=== PATIENT | female | born 1960 | race Caucasian/White ===

== ENCOUNTER 2022-12-17 07:04 | Observation (INO) | payer OTHER, SELFPAY ==
[2022-12-17] VITALS (8 sets, daily range): BP systolic 124–149; BP diastolic 78–84; PULSE 50–66; RESP 16–18; TEMP 36.4–37.1; O2SAT 93–99; BMI 34.5; BMI 40.6
--- NOTE | 2022-12-17 | CONS_ITS ---
CONSULTATION DATE: ??12/17/2022 REASON FOR CONSULTATION:? Abdominal pain, cholelithiasis. HISTORY OF PRESENT ILLNESS:? Patient is a 62-year-old female with history of obesity, who presented to the emergency room with upper abdominal pain and nausea.? She reports that the pain woke her up at 3:00 a.m.? She did have a fatty dinner.? Reports that the pain felt like a band-like pain around the upper abdomen, squeezing, severe.? There was associated nausea and, at time, emesis.? Because of the persistence of the pain, she presented to the emergency room for evaluation.? She reports that she has had multiple previous attacks, beginning in July, at which time she was evaluated in the emergency room, at that time, had had chest CT.? She has had severe other attacks, usually only lasting several hours; although she does report now that they seem to be getting more frequent, but they usually resolve spontaneously.? She denies any history of jaundice or pancreatitis, has had no previous abdominal surgery.? In the emergency room, she had a workup which revealed mild elevation of her transaminases, as well as some mild elevation of the alkaline phosphotase, normal bilirubin and lipase, normal white blood cell count. ?She had an ultrasound that revealed cholelithiasis, as well as mild dilatation of the common bile duct.? No thickening of the gallbladder wall.? No pericholecystic fluid.? Of note is that in July, when she had her first attack, her transaminases were more elevated and her alkaline phosphotase was similar at 130.? Patient subsequently was admitted for pain control and further workup, underwent an abdominal CT scan with contrast. It revealed a dilated common duct of approximately 1 cm.? No inflammatory changes or free fluid or thickening of the gallbladder wall.? No radiopaque stones in the gallbladder or common duct.? An MRCP has subsequently been ordered but has not been completed yet.? Patient?s pain has improved.? She was given some narcotics and reports that the pain has completely resolved.? She has had no further nausea or vomiting.? She does have some soreness still in the upper abdomen.? Patient denies aspirin, nonsteroidal anti-inflammatory drug use. Denies significant alcohol use or tobacco use.? There is no family history of irritable bowel disease.? ALLERGIES:? The patient has no known drug allergies. MEDICATIONS:? Patient is on no prescription medications, denies any [id number] medications.? PAST SURGICAL HISTORY:? Significant for a D&C hysteroscopy in 2009. SOCIAL HISTORY:? Patient is .? Denies tobacco use, alcohol use or illicit drug use. FAMILY HISTORY:? Noncontributory. REVIEW OF SYSTEMS:? Ten system review of systems is negative for recent weight loss or weight gain.? She denies increased fatigue or light-headedness.? Has had no earache or tinnitus.? No sinus congestion.? No sore throat or hoarseness.? No chest pain, palpitations or syncope.? No chronic cough, shortness of breath or hemoptysis.? She has had the abdominal pain, nausea and vomiting which is now improved.? No melena, hematochezia or bright red blood per rectum.? No dysuria, frequency, urgency or hematuria.? No headaches, seizures or tremors.? No easy bruising or bleeding.? No heat or cold intolerance.? No polydipsia, polyphagia or polyuria. PHYSICAL EXAM:? VITAL SIGNS:? Patient is afebrile.? Blood pressure is 130/78.? Heart rate is 66 and regular.? Respiratory rate is 18.? O2 saturation is 97% on room air.? GENERAL:? In general, she is an obese female in no acute distress. HEENT:? Normocephalic, atraumatic.? Sclerae anicteric.? Conjunctiva are not injected.? Oral mucosa is moist without lesions. NECK:? Supple.? There is no adenopathy, thyromegaly or JVD. LUNGS:? Clear bilaterally.? CARDIAC EXAM:? Regular rhythm and rate without appreciable murmurs, rubs or gallops. ABDOMEN:? Obese.? There are normal active bowel sounds.? Soft, non-distended.? There is mild epigastric and right lower quadrant tenderness to deep palpation with no peritoneal signs, no masses, no hepatosplenomegaly, negative Browne?s sign.? No CVA tenderness.? SKIN:? Warm and dry without lesions, rashes or ulcers. NEURO EXAM:? Non-focal.? Non-lateralizing.? Patient is awake, alert, oriented with appropriate affect. ASSESSMENT:? A 62-year-old obese female with episodes of biliary colic in the past, not with a more severe episode and dilatation of the common bile duct.? She does have mild elevation of the transaminases and alkaline phosphotase, which is similar to previous episode in July.? Overall, she had no evidence of acute cholecystitis.? I am concerned about possible common duct stone or passage of a common duct stone.? PLAN:? We will monitor her symptoms, serial LFTs and await the MRCP results.?? If there is a concern for common duct stone, she will likely require ERCP with sphincterotomy prior to any cholecystectomy. Thank you for allowing me to participate in her care.?? I will be happy to follow with you during her hospital course. CC:? Patient?s family physician TEREZA
--- NOTE | 2022-12-17 07:13 | ED.ABDPAIN1 ---
HPI - Abdominal Pain General Chief Complaint: Abdominal Pain Stated Complaint: ABDOMINAL & BACK PAIN Time Seen by Provider: 12/17/22 07:13 Source: patient Mode of arrival: walk-in Limitations: no limitations History of Present Illness HPI narrative: Patient presents to emergency department complaining of epigastric pain. Patient complains of pain to bilateral ribs and a band with distribution over rib 7 and 8 from the right side to the left side as if she had a constriction band placed. She states this pain started at 3 in the morning. She has been nauseated and dry heaving all night. Last NPO was at 5 PM yesterday. She states she's had 3 episodes like this in the past in July, september for which she was seen and evaluated had a CTA of her chest done at that time cardiac enzymes and she was discharged home. Patient states she has not followed up with any doctor regarding previous elevated liver function tests. Patient States she had a heart catheterization 20 years ago. Pain is not related to exertion. There is nothing that makes it better or worse. She denies any palpitations, dizziness or lightheadedness. She denies any shortness of breath. She denies any upper respiratory infection symptoms, cough, or shortness of breath. She denies any diarrhea, constipation. She denies any hematuria, dysuria. She denies any trauma. She states that throughout the morning she took a dorsiflexed a diclofenac that was given to her in September when she was seen for the same exact type of pain. Related Data Home Medications Medication Instructions Recorded Confirmed No Known Home Medications 12/17/22 12/17/22 Allergies Allergy/AdvReac Type Severity Reaction Status Date / Time No Known Drug Allergies Allergy Verified 12/17/22 07:08 Review of Systems ROS Status of ROS 10 or more systems reviewed and unremarkable except as noted in history and below [facility] Social History Smoking status: Current every day smoker Exam Narrative Exam Narrative: Nurses notes and vital signs reviewed and patient is not hypoxic. General: Nontoxic, Appears in pain but is not in distress. Skin: Warm, dry, no pallor noted. No Rash Head: Normocephalic, atraumatic. Neck: Supple, non-tender. Eye: Pupils are equal, round and EOMI. No scleral icterus. Ears, Nose, Mouth, and Throat: TM clear, no posterior oropharynx erythema or nasal mucosal hypertrophy, uvula is mid-line Oral mucosa is moist Cardiovascular: Regular Rate and Rhythm without murmur, gallop or rub. Respiratory: No accessory muscle use or respiratory distress. Lungs are clear to auscultation, no wheezing, rales or rhonchi Chest Wall: no tenderness Back: No midline thoracic or lumbar vertebral tenderness. No CVA tenderness Musculoskeletal: normal ROM, no calf or popliteal tenderness, no lower extremity edema/swelling GI: obese, Abdomen is soft, non-distended. Normal bowel sounds. Mild right upper quadrant tenderness to palpation. No rebound, guarding, or rigidity noted. Neurological: A&O x4. No cranial nerve dysfunction observed. No truncal ataxia. Moves all extremities. Sensation intact. Psychiatric: Cooperative and interactive. Normal mood and affect. Constitutional Vital Signs, click to edit/add: Last Vital Signs Temp 97.6 F 12/17/22 07:08 Pulse 50 L 12/17/22 09:02 Resp 18 12/17/22 09:02 BP 124/84 12/17/22 09:02 Pulse Ox 99 12/17/22 09:02 O2 Del Method Room Air 12/17/22 07:08 Course Vital Signs Vital signs: Vital Signs Temperature 97.6 F 12/17/22 07:08 Pulse Rate 63 12/17/22 07:08 Respiratory Rate 18 12/17/22 07:08 Blood Pressure 149/80 H 12/17/22 07:08 Pulse Oximetry 99 12/17/22 07:08 Oxygen Delivery Method Room Air 12/17/22 07:08 Temperature 97.6 F 12/17/22 07:08 Pulse Rate 50 L 12/17/22 09:02 Respiratory Rate 18 12/17/22 09:02 Blood Pressure 124/84 12/17/22 09:02 Pulse Oximetry 99 12/17/22 09:02 Oxygen Delivery Method Room Air 12/17/22 07:08 MDM - Abdominal Pain MDM Narrative Medical decision making narrative: EKG shows sinus at 65 bpm normal axis, no acute ischemic changes. IV established labs were ordered patient was given Toradol 30 mg IV, and right upper quadrant ultrasound showed cholelithiasis. Patient was then given morphine and Zofran IV. Pain is better controlled. Patient vomited one time in the emergency department. Patient's pain improved after morphine and toradol. Patient was seen July 11 of this year with the same complaint and symptoms and her liver function tests at that time similar to what they are today. Patient has not followed up with any one regarding this. Ultrasound result was discussed with Dr. Beltran. Dr. lovett advised the patient can be admitted to the hospitalist for observation to monitor and he will evaluate her. The patient was discussed with Dr. verito ledesma who has accepted the patient. Differential Diagnosis Differential diagnosis: Likely abdominal pain and pancreatitis Medical Records Attestation: I reviewed the patient's medical records. Lab Data Attestation: I reviewed the patient's lab results. Labs: Lab Results 12/17/22 Range/Units 07:34 WBC 6.0 (4.0-11.0) 10^3/uL RBC 4.43 (4.20-5.40) 10^6/uL Hgb 13.4 (12.0-16.0) g/dL Hct 41.6 (36.0-48.0) % MCV 93.9 (81.0-99.0) fL MCH 30.2 (26.7-34.0) pg MCHC 32.2 (29.9-35.2) g/dL RDW 13.6 (11.0-15.0) % Plt Count 211 (150-450) 10^3/uL MPV 10.4 (9.5-13.5) fL Neut % (Auto) 71.9 (43.0-75.0) % Lymph % (Auto) 21.6 (20.5-60.0) % [place] % (Auto) 4.5 (1.7-12.0) % Eos % (Auto) 1.3 (0.9-7.0) % Baso % (Auto) 0.5 (0.2-2.0) % Neut # (Auto) 4.3 (1.4-6.5) 10^3/uL Lymph # (Auto) 1.3 (1.2-3.8) 10^3/uL [place] # (Auto) 0.3 (0.3-0.8) 10^3/uL Eos # (Auto) 0.1 (0.0-0.7) 10^3/uL Baso # (Auto) 0.0 (0.0-0.1) 10^3/uL Abs Immat Gran (auto) 0.01 (0.00-0.03) 10^3/uL Imm/Tot Granulo (auto) 0.2 (0.0-0.5) % Sodium 139 (136-145) mmol/L Potassium 4.1 (3.5-5.1) mmol/L Chloride 105 (98-107) mmol/L Carbon Dioxide 24.5 (21.0-32.0) mmol/L Anion Gap 13.6 BUN 18.0 (7.0-18.0) mg/dL Creatinine 0.72 (0.55-1.02) mg/dL Est GFR ( Amer) >60 (>=60) Est GFR (Non-Af Amer) >60 (>=60) BUN/Creatinine Ratio 25.0 Glucose 139 H (74-106) mg/dL Lactate 2.0 (0.4-2.0) mmol/L Calcium 9.0 (8.5-10.1) mg/dL Total Bilirubin 0.2 (0.2-1.0) mg/dL AST 81 H (15-37) U/L ALT 164 H (14-59) U/L Alkaline Phosphatase 127 H (46-116) U/L Troponin I High Sens 5.1 (4.0-51.3) pg/mL Total Protein 8.1 (6.4-8.2) g/dL Albumin 3.5 (3.4-5.0) g/dL Globulin 4.6 g/dL Albumin/Globulin Ratio 0.8 Lipase 60.0 L (73.0-393.0) U/L ECG Data Attestation: I personally reviewed and interpreted this ECG as follows: Discharge Plan Discharge Chief Complaint: Abdominal Pain Clinical Impression: Elevated liver enzymes, Abdominal pain, acute, right upper quadrant Patient Disposition: Admitted as Observation Time of Disposition Decision: 08:52 Condition: Good
--- NOTE | 2022-12-17 07:15 | ECG_ITS ---
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
--- NOTE | 2022-12-17 07:22 | US_ITS ---
The [address] [address] Patient Name: NATE PRADO MRN: [id number] date: 1960 Sex: F Assigned Patient Location: ER Current Patient Location: ER Accession/Order Number: [id number] Exam Date: 12/17/2022 07:40 Report Date: 12/17/2022 08:19 At the request of: ALTHEA BAH Procedure: US right upper quadrant EXAMINATION: US right upper quadrant HISTORY: ruq pain , acute; nausea COMPARISON: No relevant comparison available. TECHNIQUE: Transabdominal evaluation of the right upper quadrant. FINDINGS: LIVER: Normal size and echotexture. Color Doppler demonstrates patent hepatic veins. PORTAL VEIN: Duplex Doppler demonstrates normal hepatopetal flow pattern with flow velocity averaging 35 cm/s. GALLBLADDER: Contains numerous stones. Wall thickness is within normal limits, 2 mm. No surrounding free fluid. Positive sonographic Browne's sign. BILIARY: Abnormally dilated common bile duct, 9 mm; no visible stone or mass. PANCREASE: No visible mass, abnormal atrophy, or duct dilation. KIDNEY: No hydronephrosis. No visible mass or stones. Size: 11.9 x 5.4 x 5.5 cm US/US right upper quadrant IMPRESSION: 1. Cholelithiasis, abnormally dilated common bile duct, and positive sonographic Browne's sign suggesting acute cholecystitis. No abnormal gallbladder wall thickening or free fluid. Electronically authenticated by: WALTER MARTIN Date: 12/17/2022 08:19
[2022-12-17] MEDS: 0.9 % SODIUM CHLORIDE 1,000 ML 999 ML IV (07:39)
[2022-12-17] MEDS: ONDANSETRON PF 4 MG/2 ML VIAL IV ×3 (07:39→22:22)
[2022-12-17] MEDS: KETOROLAC TROMETHAMINE 30 MG/ML VIAL IVP (07:41)
[2022-12-17 07:43] LABS: Basophils Percent Auto 0.5 % (0.2-2.0); Eosinophils Absolute Auto 0.1 10^3/uL (0.0-0.7); Eosinophils Percent Auto 1.3 % (0.9-7.0); Hematocrit 41.6 % (36.0-48.0); Hemoglobin 13.4 g/dL (12.0-16.0); Immature Granulocytes Abs Auto 0.01 10^3/uL (0.00-0.03); Immature Granulocytes Pct Auto 0.2 % (0.0-0.5); Lymphocytes Absolute Auto 1.3 10^3/uL (1.2-3.8); Lymphocytes Percent Auto 21.6 % (20.5-60.0); Mean Corpuscular HGB Conc 32.2 g/dL (29.9-35.2); Mean Corpuscular Hemoglobin 30.2 pg (26.7-34.0); Mean Corpuscular Volume 93.9 fL (81.0-99.0); Mean Platelet Volume 10.4 fL (9.5-13.5); Monocytes Absolute Auto 0.3 10^3/uL (0.3-0.8); Monocytes Percent Auto 4.5 % (1.7-12.0); Neutrophils Absolute Auto 4.3 10^3/uL (1.4-6.5); Neutrophils Percent Auto 71.9 % (43.0-75.0); Platelet Count 211 10^3/uL (150-450); Red Blood Count 4.43 10^6/uL (4.20-5.40); Red Cell Distribution Width 13.6 % (11.0-15.0)
[2022-12-17] MEDS: MORPHINE SULFATE 2 MG/ML SYRINGE 4 MG IV (08:04)
--- NOTE | 2022-12-17 08:07 | XR_ITS ---
The [address] [address] Patient Name: NATE PRADO MRN: [id number] date: 1960 Sex: F Assigned Patient Location: ER Current Patient Location: ER Accession/Order Number: [id number] Exam Date: 12/17/2022 08:00 Report Date: 12/17/2022 08:20 At the request of: ALTHEA BAH Procedure: XR chest 1V EXAMINATION: XR chest 1V HISTORY: cp ; acute back pain radiating to chest COMPARISON: No relevant comparison available. FINDINGS: LUNGS: No significant pulmonary parenchymal abnormalities. VASCULATURE: No increased pulmonary vasculature. PLEURA: No pneumothorax, effusion, or pleural thickening. CARDIAC: No cardiomegaly or cardiac silhouette abnormality. MEDIASTINUM: No visible mass or adenopathy. BONES: No fracture or visible bone lesion. OTHER: Negative. XR/XR chest 1V IMPRESSION: 1. No acute cardiopulmonary process. Electronically authenticated by: WALTER MARTIN Date: 12/17/2022 08:20
[2022-12-17 08:09] LABS: Alanine Aminotransferase 164 U/L (14-59); Albumin Globulin Ratio 0.8; Albumin Level 3.5 g/dL (3.4-5.0); Alkaline Phosphatase 127 U/L (46-116); Anion Gap 13.6; Aspartate Amino Transferase 81 U/L (15-37); Bilirubin Total 0.2 mg/dL (0.2-1.0); Carbon Dioxide 24.5 mmol/L (21.0-32.0); Chloride 105 mmol/L (98-107); Estimated GFR (African America >60 (>=60); Estimated GFR (Non-African Ame >60 (>=60); Globulin 4.6 g/dL; Glucose 139 mg/dL (74-106); Potassium 4.1 mmol/L (3.5-5.1); Sodium 139 mmol/L (136-145); Total Protein 8.1 g/dL (6.4-8.2); Troponin I High Sensitivity 5.1 pg/mL (4.0-51.3)
--- NOTE | 2022-12-17 11:02 | CT_ITS ---
[address] [address] Patient Name: NATE PRADO MRN: [id number] date: 1960 Sex: F Assigned Patient Location: Current Patient Location: Accession/Order Number: [id number] Exam Date: 12/17/2022 10:55 Report Date: 12/17/2022 11:29 At the request of: LORETTA ACE Procedure: CT abdomen w con EXAMINATION: CT abdomen w con HISTORY: upper abd pain radiating to back; elevated liver enzymes; gallstones and dilated common bile duct on today's ultrasound study COMPARISON: Ultrasound right upper quadrant 12/17/2022, CTA chest 07/12/2022 TECHNIQUE: CT images were created with IV contrast. Axial, Coronal, and Sagittal images. Dose reduction techniques were achieved by using automated exposure control and/or adjustment of mA and/or kV according to patient size and/or use of iterative reconstruction technique FINDINGS: LUNG BASES: No visible pulmonary or pleural disease. LIVER: No enlargement, atrophy, abnormal density, or significant focal lesion. BILIARY: Dilated common bile duct, 10 mm; no visible stone or mass. No calcified stones within the gallbladder, appreciable wall thickening, or adjacent free fluid. PANCREAS: No lesion, fluid collection, ductal dilatation, or atrophy. SPLEEN: No enlargement or focal lesion. ADRENALS: No mass or enlargement. KIDNEYS: No mass, obstruction, or calcification. BOWEL/MESENTERY: No visible mass, obstruction, or bowel wall thickening. AORTA/VASCULAR: No aneurysm or dissection. RETROPERITONEUM: No mass or adenopathy. ABDOMINAL WALL: No mass or hernia. BONES: No bony lesion or fracture. OTHER: Negative. CT/CT abdomen w con IMPRESSION: 1. Today's ultrasound study showed multiple stones within the gallbladder, which are not visible on the CT study indicating that these are noncalcified stones. No appreciable wall thickening or inflammatory changes of the gallbladder. 2. Abnormally dilated common bile duct without visible stone or mass. There could be a noncalcified stone within the distal duct. 3. Normal appearance of the pancreas. Electronically authenticated by: WALTER MARTIN Date: 12/17/2022 11:29
--- NOTE | 2022-12-17 11:32 | CM.NOTE ---
Rounds made with Dr. Montgomery, awaiting Dr. Beltran to evaluate pt to establish plan of care.
[2022-12-17] MEDS: LACTATED RINGER'S SOLUTION 1,000 ML 125 ML IV ×2 (11:35→19:25)
--- NOTE | 2022-12-17 11:48 | P.HP_ITS ---
H&P: HPI History of Present Illness Chief complaint: Abdominal Pain Narrative: 62 y old with no PMHX woke up with severe, intractable RUQ pain and back pain, that was persistent, associated with nausea and would not go away. She came to ED for evaluation and was found to have transaminitis, cholelithiasis and CBD dilatation. Patient reports she would experience RUQ pain intermittent every week or so, it lasts for a few hours and goes away. Pain she felt last night was so severe and persistent that she had to come to ED for evaluation. She has known since September of this year that she has symptomatic cholelithiasis and she needs cholecystectomy but she has not followed up with Surgery as outpatient. She denies any specific food triggers and reports onset of pain is sporadic and can happen anytime. She is comfortable now and reports minimal pain in RUQ Review of Systems ROS Status of ROS 10 or more systems reviewed and unremarkable except as noted in history and below [facility] Medical History (Updated 12/17/22 @ 11:55 by Shaikh Valentina MD) Family History (Updated 12/17/22 @ 10:17 by Lakeisha Garza LPN) Father Family history of hypertension Other Family history of COPD (chronic obstructive pulmonary disease) Social History (Updated 12/17/22 @ 10:19 by Lakeisha Garza LPN) Within the past year, how often did you have a drink containing alcohol: 2-4 times a month Within the past year, how many standard drinks containing alcohol did you have on a typical day: 1 or 2 Within the past year, how often did you have six or more drinks on one occasion: never Total score: 0 Score interpretation: A score less than 3 is consistent with normal alcohol consumption. Smoking status: Never smoker Second hand tobacco smoke exposure: No Non-prescribed substance use: denies use Previous occupational history: retired Known occupational exposures/hazards: No Highest level of school completed/degree received: high school graduate Do you want help with school or training: No Are you now , , , , never or living with a partner: In a typical week, how many times do you talk on the telephone with family, friends, or neighbors: 3 or more times per week How often do you get together with friends or relatives: 3 or more times per week How often do you attend gnosticist or samaritan services: 1-3 times per year Do you belong to any clubs or organizations such as gnosticist groups unions, fraternal or athletic groups, or school groups: no Total score: 2 Score interpretation: A score of greater than or equal to 2 indicates the lowest level of social isolation. Little interest or pleasure in doing things: not at all Feeling down, depressed, or hopeless: not at all Feel stressed/tense/nervous/anxious/difficulty sleeping: not at all Due to disability, difficulty making decisions: No Do you think of yourself as: straight/heterosexual Gender Identity: female Meds Home Medications and Allergies Home Medications Medication Instructions Recorded Confirmed Type No Known Home Medications 12/17/22 12/17/22 History Allergies Allergy/AdvReac Type Severity Reaction Status Date / Time No Known Drug Allergies Allergy Verified 12/17/22 07:08 Exam Constitutional Vital Signs, click to edit/add: Last Vital Signs Temp 97.7 F 12/17/22 10:03 Pulse 66 12/17/22 10:03 Resp 16 12/17/22 10:03 BP 149/79 H 12/17/22 10:03 Pulse Ox 93 L 12/17/22 10:03 O2 Del Method Room Air 12/17/22 10:03 Documenting provider has reviewed patient's vital signs: yes Common normals: no apparent distress and oriented x3 HENMT Common normals: normocephalic and head/scalp atraumatic Head and scalp: normocephalic and atraumatic Eye Common normals: conjunctivae normal and no scleral icterus Conjunctiva: conjunctiva(e) normal Respiratory Common normals: normal respiratory effort and clear to auscultation bilaterally Auscultation: clear to auscultation bilaterally Cardio Common normals: regular rate, regular rhythm, S1 normal heart sound and S2 normal heart sound Rate: regular rate Rhythm: regular rhythm Heart sounds: S1 normal and S2 normal GI Common normals: Normal to inspection, nondistended, normoactive bowel sounds present, soft to palpation and no hepatosplenomegaly Palpation: soft, tender Details: RUQ and no hepatosplenomegaly Extremity Common normals: no clubbing, cyanosis or edema Neuro Common normals: oriented x3, moves all extremities, no focal motor deficits and no sensory deficits noted Psych Psychiatry clinicians, please identify where your Mental Status Exam is documented: Mental Status Exam documented in the separate MSE Common normals: mental status grossly normal, thought process normal, denies hallucinations, denies homicidal ideation and denies suicidal ideation Thought process: normal thought process Results Labs Labs: Short CBC 12/17/22 Range/Units 07:34 WBC 6.0 (4.0-11.0) 10^3/uL Hgb 13.4 (12.0-16.0) g/dL Hct 41.6 (36.0-48.0) % Plt Count 211 (150-450) 10^3/uL BMP 12/17/22 07:34 Sodium 139 Potassium 4.1 Chloride 105 Carbon Dioxide 24.5 BUN 18.0 Creatinine 0.72 Glucose 139 H Calcium 9.0 Liver Function 12/17/22 Range/Units 07:34 Total Bilirubin 0.2 (0.2-1.0) mg/dL AST 81 H (15-37) U/L ALT 164 H (14-59) U/L Alkaline Phosphatase 127 H (46-116) U/L Albumin 3.5 (3.4-5.0) g/dL Assessment and Plan Assessment and Plan (1) Abdominal pain, acute, right upper quadrant: Assessment and Plan: Acute RUQ pain due to symptomatic cholelithiasis. Improved now. Pain control and monitor cloesly. (2) Cholelithiasis: Assessment and Plan: Symptomatic cholelithiasis with no evidence of cholecystitis. Multiple non calcified stones with abnormally dialted CBD along with abnormal liver enzymes. I suspect, her acute pain was from biliary colic and she recently passed stone. Will order MRCP to r/o CBD obs/stone in CBD as this would necessitate ERCP if that is indeed the case. No evidence of cholecystitis or cholangitis. No need for abx. General Surgery consulted. Qualifiers: Cholelithiasis location: gallbladder Cholecystitis presence: without cholecystitis Biliary obstruction: without biliary obstruction Qualified Code(s): K80.20 - Calculus of gallbladder without cholecystitis without obstruction (3) Elevated liver enzymes: Assessment and Plan: Sec to cholelithiasis. Has abnormally dilated CBD and will need MRCP to r/o CBD stone/obstruction Ordered for today. No evidence of cholecystitis or cholangitis. No need for abx
--- NOTE | 2022-12-17 11:48 | MR_ITS ---
The [address] [address] Patient Name: NATE PRADO MRN: [id number] date: 1960 Sex: F Assigned Patient Location: Current Patient Location: Accession/Order Number: [id number] Exam Date: 12/17/2022 06:00 Report Date: 12/18/2022 07:53 At the request of: SHAIKH ZOHAIB Procedure: MR abdomen wo con EXAM: MR abdomen wo con 12/17/2022 COMPARISON STUDY: CT of the abdomen with contrast 12/17/2022. TECHNIQUE: Coronal, coronal oblique, and axial thin and thick section T2-weighted images were obtained with and without fat saturation. Axial T1-weighted images were obtained in- and [id number]. Images were obtained without the use of intravenous contrast. HISTORY: Abnormal LFTs, dilated CBD FINDINGS: The gallbladder is moderately distended. There are numerous stones identified within the lumen. There is mild pericholecystic edema. One of these stones for example is situated near the gallbladder neck as seen on coronal image #14 of series 5 measuring 14 mm superior to inferior. Right hepatic lobe measures 22 cm superior to inferior. The spleen measures 11.8 cm. Bowel pattern does not appear to be obstructive. Heart size is normal. Lung bases are clear. Liver, pancreas, spleen, adrenals, and kidneys demonstrate no acute abnormality. Aorta demonstrates normal caliber. Main pancreatic duct demonstrates normal caliber without evidence of acute pancreatitis. Small duodenal diverticulum near the pancreatic head is identified with transverse diameter of 14 mm. Abdominal aorta demonstrates normal caliber. There is slight prominence of the intrahepatic bile ducts. The common hepatic duct has AP diameter of 9 mm. Proximal common bile duct has diameter of 11 mm. More distally the common bile duct measures 6 mm and tapers as it approaches the ampulla. Trace volume of perihepatic ascites noted. No convincing evidence of choledocholithiasis. MR/MR abdomen wo con IMPRESSION: 1. Cholelithiasis with early mild acute cholecystitis. There is a dominant stone situated near the gallbladder neck. 2. Mild intrahepatic and extrahepatic biliary ductal dilatation without evidence of choledocholithiasis. Small duodenal diverticulum. 3. Main pancreatic duct demonstrates normal caliber. Negative for acute pancreatitis. Trace volume of abdominal ascites. Electronically authenticated by: LARRY HERRERA Date: 12/18/2022 07:53
[2022-12-17] MEDS: ENOXAPARIN SODIUM 40 MG/0.4 ML SYRINGE SUBQ (17:04)
--- NOTE | 2022-12-17 18:28 | PM.GSCN ---
History of Present Illness Consult details Consult date: 12/17/22 Reason for consult: gallstones Narrative: patient seen/examined/cart and xray images reviewed/consult dictated; 62 yo obese female with 5 month h/o intermittent biliary colic symptoms, now with worse pain, prolonged; dilated cbd and cholelithiasis; normal bilirubin and lipase, normal wbc; no evidence of cholecystitis; recommend bowel rest; supportive care; serial lfts, lipase; await MRCP results; if suspicious for cbd, will require MRCP prior to cholecystectomy; will follow. [facility] Medical History (Updated 12/17/22 @ 11:55 by Shaikh Valentina MD) Family History (Updated 12/17/22 @ 10:17 by Lakeisha Garza LPN) Father Family history of hypertension Other Family history of COPD (chronic obstructive pulmonary disease) Social History (Updated 12/17/22 @ 10:19 by Lakeisha Garza LPN) Within the past year, how often did you have a drink containing alcohol: 2-4 times a month Within the past year, how many standard drinks containing alcohol did you have on a typical day: 1 or 2 Within the past year, how often did you have six or more drinks on one occasion: never Total score: 0 Score interpretation: A score less than 3 is consistent with normal alcohol consumption. Smoking status: Never smoker Second hand tobacco smoke exposure: No Non-prescribed substance use: denies use Previous occupational history: retired Known occupational exposures/hazards: No Highest level of school completed/degree received: high school graduate Do you want help with school or training: No Are you now , , , , never or living with a partner: In a typical week, how many times do you talk on the telephone with family, friends, or neighbors: 3 or more times per week How often do you get together with friends or relatives: 3 or more times per week How often do you attend latter-day or voodoo services: 1-3 times per year Do you belong to any clubs or organizations such as latter-day groups unions, fraternal or athletic groups, or school groups: no Total score: 2 Score interpretation: A score of greater than or equal to 2 indicates the lowest level of social isolation. Little interest or pleasure in doing things: not at all Feeling down, depressed, or hopeless: not at all Feel stressed/tense/nervous/anxious/difficulty sleeping: not at all Due to disability, difficulty making decisions: No Do you think of yourself as: straight/heterosexual Gender Identity: female Meds Home Medications and Allergies Home Medications Medication Instructions Recorded Confirmed Type No Known Home Medications 12/17/22 12/17/22 History Allergies Allergy/AdvReac Type Severity Reaction Status Date / Time No Known Drug Allergies Allergy Verified 12/17/22 07:08 Exam Constitutional Vital Signs, click to edit/add: Last Vital Signs Temp 98.0 F 12/17/22 15:04 Pulse 66 12/17/22 15:04 Resp 18 12/17/22 15:04 BP 130/78 12/17/22 15:04 Pulse Ox 97 12/17/22 16:49 O2 Del Method Room Air 12/17/22 16:49 Results Labs Labs: Abnormal lab results 12/17/22 Range/Units 07:34 Glucose 139 H (74-106) mg/dL AST 81 H (15-37) U/L ALT 164 H (14-59) U/L Alkaline Phosphatase 127 H (46-116) U/L Lipase 60.0 L (73.0-393.0) U/L Diabetes panel 12/17/22 Range/Units 07:34 Sodium 139 (136-145) mmol/L Potassium 4.1 (3.5-5.1) mmol/L Chloride 105 (98-107) mmol/L Carbon Dioxide 24.5 (21.0-32.0) mmol/L BUN 18.0 (7.0-18.0) mg/dL Creatinine 0.72 (0.55-1.02) mg/dL Glucose 139 H (74-106) mg/dL Calcium 9.0 (8.5-10.1) mg/dL AST 81 H (15-37) U/L ALT 164 H (14-59) U/L Alkaline Phosphatase 127 H (46-116) U/L Total Protein 8.1 (6.4-8.2) g/dL Albumin 3.5 (3.4-5.0) g/dL Calcium panel 12/17/22 Range/Units 07:34 Calcium 9.0 (8.5-10.1) mg/dL Albumin 3.5 (3.4-5.0) g/dL Pituitary panel 12/17/22 Range/Units 07:34 Sodium 139 (136-145) mmol/L Potassium 4.1 (3.5-5.1) mmol/L Chloride 105 (98-107) mmol/L Carbon Dioxide 24.5 (21.0-32.0) mmol/L BUN 18.0 (7.0-18.0) mg/dL Creatinine 0.72 (0.55-1.02) mg/dL Glucose 139 H (74-106) mg/dL Calcium 9.0 (8.5-10.1) mg/dL Adrenal panel 12/17/22 Range/Units 07:34 Sodium 139 (136-145) mmol/L Potassium 4.1 (3.5-5.1) mmol/L Chloride 105 (98-107) mmol/L Carbon Dioxide 24.5 (21.0-32.0) mmol/L BUN 18.0 (7.0-18.0) mg/dL Creatinine 0.72 (0.55-1.02) mg/dL Glucose 139 H (74-106) mg/dL Calcium 9.0 (8.5-10.1) mg/dL Total Bilirubin 0.2 (0.2-1.0) mg/dL AST 81 H (15-37) U/L ALT 164 H (14-59) U/L Alkaline Phosphatase 127 H (46-116) U/L Total Protein 8.1 (6.4-8.2) g/dL Albumin 3.5 (3.4-5.0) g/dL All other labs normal. Assessment and Plan Assessment and Plan (1) Abdominal pain, acute, right upper quadrant: (2) Cholelithiasis: Qualifiers: Cholelithiasis location: gallbladder Cholecystitis presence: without cholecystitis Biliary obstruction: without biliary obstruction Qualified Code(s): K80.20 - Calculus of gallbladder without cholecystitis without obstruction (3) Elevated liver enzymes:
[2022-12-17] MEDS: ACETAMINOPHEN 325 MG TABLET 650 MG PO (22:22)
[2022-12-17 22:38] LABS: Bilirubin Urine NEGATIVE (NEGATIVE); Blood Urine SMALL (NEGATIVE); Clarity Urine CLEAR (CLEAR); Color Urine YELLOW (YELLOW); Glucose Urine UA NEGATIVE (NEGATIVE); Ketones Urine NEGATIVE (NEGATIVE); Leukocyte Esterase Urine TRACE (NEGATIVE); Nitrite Urine NEGATIVE (NEGATIVE); Protein Urine NEGATIVE (NEG/TRACE); Specific Gravity Urine 1.015 (1.005-1.025); Urobilinogen Urine 0.2 EU/dL (0.2-1.0); pH Urine 5.5 (5.0-9.0)
[2022-12-17 22:39] LABS: Urine Microscopic Indicated YES
[2022-12-17 22:45] LABS: Bacteria Urine MODERATE #/HPF (NONE SEEN); Cast Seen? NONE SEEN #/LPF (NONE SEEN); Crystals Seen? None Seen #/HPF (None Seen); Mucus Urine MODERATE (NONE SEEN); Squamous Epithelial Cell Urine FEW #/LPF (NONE/RARE); Urine Culture Indicated YES
[2022-12-18] MEDS: LACTATED RINGER'S SOLUTION 1,000 ML 125 ML IV (02:53)
[2022-12-18 03:58] VITALS: BP 123/68; PULSE 72; RESP 16; TEMP 36.9; O2SAT 95
[2022-12-18 04:41] LABS: Basophils Percent Auto 0.4 % (0.2-2.0); Eosinophils Absolute Auto 0.1 10^3/uL (0.0-0.7); Hematocrit 37.7 % (36.0-48.0); Hemoglobin 12.3 g/dL (12.0-16.0); Immature Granulocytes Abs Auto 0.03 10^3/uL (0.00-0.03); Immature Granulocytes Pct Auto 0.4 % (0.0-0.5); Lymphocytes Absolute Auto 1.1 10^3/uL (1.2-3.8); Lymphocytes Percent Auto 16.3 % (20.5-60.0); Mean Corpuscular HGB Conc 32.6 g/dL (29.9-35.2); Mean Corpuscular Hemoglobin 30.4 pg (26.7-34.0); Mean Corpuscular Volume 93.1 fL (81.0-99.0); Mean Platelet Volume 10.7 fL (9.5-13.5); Monocytes Absolute Auto 0.4 10^3/uL (0.3-0.8); Monocytes Percent Auto 6.3 % (1.7-12.0); Neutrophils Absolute Auto 5.2 10^3/uL (1.4-6.5); Neutrophils Percent Auto 75.6 % (43.0-75.0); Platelet Count 192 10^3/uL (150-450); Red Blood Count 4.05 10^6/uL (4.20-5.40); Red Cell Distribution Width 13.7 % (11.0-15.0); White Blood Count 6.9 10^3/uL (4.0-11.0)
[2022-12-18 04:50] LABS: Estimated Average Glucose 114 mg/dL; Glycohemoglobin A1C 5.6 % (4.5-6.2)
[2022-12-18 04:54] LABS: Alanine Aminotransferase 107 U/L (14-59); Albumin Globulin Ratio 0.9; Albumin Level 3.1 g/dL (3.4-5.0); Alkaline Phosphatase 112 U/L (46-116); Anion Gap 12.6; Aspartate Amino Transferase 46 U/L (15-37); BUN Creatinine Ratio 16.4; Bilirubin Total 0.4 mg/dL (0.2-1.0); Calcium 8.2 mg/dL (8.5-10.1); Carbon Dioxide 25.2 mmol/L (21.0-32.0); Chloride 102 mmol/L (98-107); Estimated GFR (African America >60 (>=60); Estimated GFR (Non-African Ame >60 (>=60); Globulin 3.6 g/dL; Glucose 115 mg/dL (74-106); Potassium 3.8 mmol/L (3.5-5.1); Sodium 136 mmol/L (136-145); Total Protein 6.7 g/dL (6.4-8.2)
[2022-12-18 05:25] VITALS: O2SAT 96
[2022-12-18] MEDS: MORPHINE SULFATE 2 MG/ML SYRINGE IV (08:01)
[2022-12-18] MEDS: ASPIRIN/ACETAMINOPHEN/CAFFEINE 1 TAB TABLET PO (09:45)
[2022-12-18 10:15] VITALS: O2SAT 92
--- NOTE | 2022-12-18 10:21 | P.IMPN_ITS ---
Progress Note: A&P Assessment and Plan (1) Abdominal pain, acute, right upper quadrant: Assessment and Plan: Evidence of cholecystitis on MRCP, no CBD obstruction.. Persistent, not getting better even when patients was NPO Will start patient on IV rocephin and Flagyl for Cholecystitis. D/w Surgery - NPO after MN for cholecystectomy tomorrow. (2) Cholelithiasis: Assessment and Plan: Acute early cholecystitis on MRCP. Started on IV rocephin/flagyl. NPO after MN for cholecystectomy Qualifiers: Biliary obstruction: without biliary obstruction Cholecystitis acuity: acute Cholecystitis presence: with cholecystitis Cholelithiasis location: gall bladder Qualified Code(s): K80.00 - Calculus of gallbladder with acute cholecystitis without obstruction (3) Elevated liver enzymes: Assessment and Plan: Improved from before. No CBD obstruction on MRCP Likely has underlying NAFLD. (4) Headache: Assessment and Plan: Reports KUHN this morning due to not having her coffee and breakfast. Reports prior hx of migraine KUHN and that she would get relief with Excedrin migraine Ordered excedrin migraine for her. No red flags (5) Abnormal urinalysis: Assessment and Plan: Abnormal UA but no urinary symptoms to suggest UTI Rocephin/plus flagyl for cholecystitis would adequately cover her for UTI too. F/u urine cx. Internal Medicine - PN: Subj Subjective Interval history: Seen and examined. Reports headache from being hungry and not getting her coffee this morning Reports persistent RUQ pain that is dull with periods of worsening pain Denies N/V, or urinary complaints Exam Constitutional Vital Signs, click to edit/add: Last Vital Signs Temp 98.5 F 12/18/22 03:58 Pulse 72 12/18/22 03:58 Resp 16 12/18/22 03:58 BP 123/68 12/18/22 03:58 Pulse Ox 96 12/18/22 05:25 O2 Del Method Room Air 12/18/22 05:25 Documenting provider has reviewed patient's vital signs: yes Common normals: no apparent distress and oriented x3 HENMT Common normals: normocephalic and head/scalp atraumatic Head and scalp: normocephalic and atraumatic Eye Common normals: conjunctivae normal and no scleral icterus Conjunctiva: conjunctiva(e) normal Respiratory Common normals: normal respiratory effort and clear to auscultation bilaterally Auscultation: clear to auscultation bilaterally Cardio Common normals: regular rate, regular rhythm, S1 normal heart sound and S2 normal heart sound Rate: regular rate Rhythm: regular rhythm Heart sounds: S1 normal and S2 normal GI Common normals: Normal to inspection, nondistended, normoactive bowel sounds present, soft to palpation and no hepatosplenomegaly Palpation: soft, tender Details: RUQ and no hepatosplenomegaly Extremity Common normals: no clubbing, cyanosis or edema Neuro Common normals: oriented x3, moves all extremities, no focal motor deficits and no sensory deficits noted Psych Psychiatry clinicians, please identify where your Mental Status Exam is documented: Mental Status Exam documented in the separate MSE Common normals: mental status grossly normal, thought process normal, denies hallucinations, denies homicidal ideation and denies suicidal ideation Thought process: normal thought process Internal Medicine - PN: Obj Da Labs Labs: Laboratory Results - last 24 hr 12/17/22 12/18/22 22:25 04:20 WBC 6.9 RBC 4.05 L Hgb 12.3 Hct 37.7 MCV 93.1 MCH 30.4 MCHC 32.6 RDW 13.7 Plt Count 192 MPV 10.7 Neut % (Auto) 75.6 H Lymph % (Auto) 16.3 L [place] % (Auto) 6.3 Eos % (Auto) 1.0 Baso % (Auto) 0.4 Neut # (Auto) 5.2 Lymph # (Auto) 1.1 L [place] # (Auto) 0.4 Eos # (Auto) 0.1 Baso # (Auto) 0.0 Abs Immat Gran (auto) 0.03 Imm/Tot Granulo (auto) 0.4 Sodium 136 Potassium 3.8 Chloride 102 Carbon Dioxide 25.2 Anion Gap 12.6 BUN 12.0 Creatinine 0.73 Est GFR ( Amer) >60 Est GFR (Non-Af Amer) >60 BUN/Creatinine Ratio 16.4 Glucose 115 H Estimat Average Glucose 114 Hemoglobin A1c 5.6 Calcium 8.2 L Total Bilirubin 0.4 AST 46 H ALT 107 H Alkaline Phosphatase 112 Total Protein 6.7 Albumin 3.1 L Globulin 3.6 Albumin/Globulin Ratio 0.9 Urine Color Yellow Urine Clarity Clear Urine pH 5.5 Ur Specific [place] 1.015 Urine Protein Negative Urine Glucose (UA) Negative Urine Ketones Negative Urine Occult Blood Small A Urine Nitrite Negative Urine Bilirubin Negative Urine Urobilinogen 0.2 Ur Leukocyte Esterase Trace A Urine RBC 2-5 A Urine WBC 10-20 A Ur Squamous Epith Cells Few A Urine Crystals None seen Urine Bacteria Moderate A Urine Casts None seen Urine Mucus Moderate A Ur Culture Indicated? Yes
--- NOTE | 2022-12-18 10:35 | CM.NOTE ---
Rounds made with Dr. Montgomery, discussed plan of care with pt and Dr. Beltran. Pt will go to OR tomorrow for gallbladder. Full liquids today and NPO after midnight.
[2022-12-18 11:41] VITALS: BMI 40.6
[2022-12-18] MEDS: METRONIDAZOLE/SODIUM CHLORIDE 500 MG/100 ML PREMIX 100 MG IV ×2 (11:48→19:49)
--- NOTE | 2022-12-18 12:10 | NUTR.NU ---
Discussed low fat diet with Lynette at bedside. Also discussed consistent carbohydrate and no carbonation. Lynette is permitted full liquid today.
[2022-12-18] MEDS: CEFTRIAXONE 1,000 MG in 0.9 % SODIUM CHLORIDE 50 ML 100 MG IV (13:07)
[2022-12-18 14:40] VITALS: BP 160/90; PULSE 65; RESP 16; TEMP 37.1; O2SAT 95
[2022-12-18] MEDS: ENOXAPARIN SODIUM 40 MG/0.4 ML SYRINGE SUBQ (18:34)
[2022-12-18 19:55] VITALS: O2SAT 94
[2022-12-18 20:18] VITALS: BP 151/78; PULSE 62; RESP 16; TEMP 37
[2022-12-19] VITALS (11 sets, daily range): BP systolic 102–133; BP diastolic 59–80; PULSE 61–70; RESP 12–18; TEMP 36.1–37.2; O2SAT 91–95
--- NOTE | 2022-12-19 | OP_ITS ---
OPERATION DATE: ??12/19/2022 PREOPERATIVE DIAGNOSIS:? Symptomatic cholelithiasis. POSTOPERATIVE DIAGNOSIS:? Acute gangrenous cholecystitis with calculus. PROCEDURE:? Laparoscopic cholecystectomy. SURGEON: ?Bennett Beltran M.D. ANESTHESIA:? General endotracheal. ESTIMATED BLOOD LOSS:? Less than 20 mL. INDICATIONS AND CONSENT:? Patient is a 62-year-old female with a four month history of biliary colic type symptoms, presented with worsening pain.? Workup revealed mild elevation of her common bile duct, slight elevation of transaminases and alkaline phosphotase, normal white blood cell count.? She did have some mild distention of her gallbladder, as well as stones in the neck of the gallbladder.? MRCP revealed no evidence of choledocholithiasis.? There was some mild inflammation of the gallbladder at that time.? Because of her persistent ?pain, cholecystectomy was indicated.? Indications, risks, benefits, alternatives of proceeding with laparoscopic cholecystectomy were explained extensively to the patient, including risks of bleeding, infection, bile duct injury, bowel injury, need for intraoperative cholangiogram, postoperative ERCP, open procedure, blood clot, pulmonary embolus, heart attack, anesthetic complications, need for further surgery.? All of her questions were answered.? Informed consent was obtained. PROCEDURE:? Patient brought to the operating room, placed in the supine position.? General anesthesia was induced.? She was prepped and draped in the usual sterile fashion.? A supraumbilical incision was made with the scalpel blade and carried through subcutaneous tissue using blunt dissection.? The fascia was grasped and incised.? Two 0 Vicryl stay sutures placed in either side of the midline fascia.? The Shaffer trocar was then inserted and secured using the stay sutures.? The abdomen was then insufflated with carbon dioxide to a pressure of 15 mm/Hg.? The scope was then inserted and the abdomen was visualized.? There were noted to be gangrenous changes of the gallbladder, as well as some bile tinged fluid around the gallbladder and right hepatic gutter.? Three 5 mm ports were then placed; one in the subxiphoid area, two in the right subcostal area, all under direct visualization.? Patient was placed in reverse Trendelenburg position.? Gallbladder was aspirated with an aspirating needle.? It was then able to be grasped at the fundus and retracted cephalad on the patient?s right.? There were numerous adhesions and inflammatory peel that were carefully dissected free.? The infundibulum as stuck down medially, over the common duct.? This was carefully peeled away and retracted laterally and inferiorly.? This was carefully untwisted and a very short cystic duct was identified.? There was a stone impacted in the distal infundibulum and proximal cystic duct that was starting to erode through the wall, which was quite thinned down.? This was carefully dissected free.? The very short cystic duct was then clipped with two Hem-O-Echo clip proximally towards the common duct and one distally towards the gallbladder and then divided.? The cystic artery as well as the posterior branch were then controlled with regular clips and divided.? There was another smaller vascular branch along the side of the gallbladder that was controlled with regular clips as well.? The gallbladder was extrahepatic.? It was excised with electrocautery.? There was some spillage of small stones from the tear in the fundus from the grasper and the gangrenous changes revealed of the wall.? These were all aspirated with the suction device.? Once the gallbladder was completely removed, it was brought out in an Endocatch bag through the umbilical port site.? The abdomen was then copiously irrigated with saline until clear.? All small stones were suctioned up, all that could be seen. The liver bed was inspected and noted to be hemostatic with no evidence of bile leak.? All port sites were examined upon withdrawal of the ports.? There was noted to be good hemostasis.? The umbilical port site fascia was then closed with 0 Vicryl figure of eight suture.? All port sites were infiltrated with 0.5% Marcaine.? The skin was then closed with interrupted 4-0 subcuticular Monocryl sutures and skin glue.? Sterile pressure dressing was applied to the umbilical incision.? Patient tolerated procedure well, was extubated and sent to recovery room in good condition. CC:? Patient?s family physician. TEREZA
[2022-12-19] MEDS: METRONIDAZOLE/SODIUM CHLORIDE 500 MG/100 ML PREMIX 100 MG IV (03:37)
[2022-12-19 04:57] LABS: Basophils Percent Auto 0.5 % (0.2-2.0); Eosinophils Absolute Auto 0.2 10^3/uL (0.0-0.7); Eosinophils Percent Auto 4.1 % (0.9-7.0); Hematocrit 37.7 % (36.0-48.0); Hemoglobin 12.3 g/dL (12.0-16.0); Immature Granulocytes Abs Auto 0.02 10^3/uL (0.00-0.03); Immature Granulocytes Pct Auto 0.3 % (0.0-0.5); Lymphocytes Absolute Auto 1.3 10^3/uL (1.2-3.8); Lymphocytes Percent Auto 22.6 % (20.5-60.0); Mean Corpuscular HGB Conc 32.6 g/dL (29.9-35.2); Mean Corpuscular Hemoglobin 30.4 pg (26.7-34.0); Mean Corpuscular Volume 93.3 fL (81.0-99.0); Mean Platelet Volume 11.1 fL (9.5-13.5); Monocytes Absolute Auto 0.6 10^3/uL (0.3-0.8); Monocytes Percent Auto 9.3 % (1.7-12.0); Neutrophils Absolute Auto 3.7 10^3/uL (1.4-6.5); Neutrophils Percent Auto 63.2 % (43.0-75.0); Platelet Count 164 10^3/uL (150-450); Red Blood Count 4.04 10^6/uL (4.20-5.40); Red Cell Distribution Width 13.5 % (11.0-15.0); White Blood Count 5.9 10^3/uL (4.0-11.0)
[2022-12-19 05:17] LABS: Alanine Aminotransferase 95 U/L (14-59); Albumin Globulin Ratio 0.8; Alkaline Phosphatase 114 U/L (46-116); Anion Gap 13.2; Aspartate Amino Transferase 35 U/L (15-37); BUN Creatinine Ratio 10.7; Bilirubin Total 0.5 mg/dL (0.2-1.0); Calcium 8.6 mg/dL (8.5-10.1); Carbon Dioxide 27.3 mmol/L (21.0-32.0); Chloride 104 mmol/L (98-107); Estimated GFR (African America >60 (>=60); Estimated GFR (Non-African Ame >60 (>=60); Globulin 3.7 g/dL; Glucose 103 mg/dL (74-106); Potassium 3.5 mmol/L (3.5-5.1); Sodium 141 mmol/L (136-145); Total Protein 6.7 g/dL (6.4-8.2)
[2022-12-19 07:28] LABS: HCG Quantitative 2 mIU/mL
--- NOTE | 2022-12-19 10:11 | PM.DS1 ---
DS: Providers Provider Date of admission: 12/17/22 09:20 Primary care physician: Non-Staff PhysicianMD Consults: 12/17/22 08:52 Consult to General Surgeon Routine Consulting Provider: Bennett Beltran Attending physician on discharge: Shaikh Valentina Discharging clinician: Shaikh Valentina Anticipated date of discharge: 12/19/22 DS: Diagnosis Discharge Diagnosis (1) Abdominal pain, acute, right upper quadrant: Assessment and plan: Due to acute cholecystitis. S/p laparoscopic cholecystectomy. (2) Cholelithiasis: Assessment and plan: With evidence of cholecystitis on MRCP. s/p cholecystectomy. Operative report not available to review but Surgeon on the case mentioned that GB was gangrenous. Qualifiers: Biliary obstruction: without biliary obstruction Cholecystitis acuity: acute Cholecystitis presence: with cholecystitis Cholelithiasis location: gallbladder Qualified Code(s): K80.00 - Calculus of gallbladder with acute cholecystitis without obstruction (3) Elevated liver enzymes: Assessment and plan: More or less resolved. Likely due to cholelithiasis/cholecystitis (4) Headache: Assessment and plan: Intermittent when she misses coffee in the morning. No red flags. Responded to excedrine migraine yesterday (5) Abnormal urinalysis: Assessment and plan: Urine cx grew normal la. in the absence of urinary symptoms, negative urine cx, no reason to believe she has UTI. DS: Summary Hospital Course Hospital Course: 62 y old with no PMHX developed severe, intractable RUQ pain and back pain came to ED for evaluation and was found to have transaminitis, cholelithiasis and CBD dilatation. Patient reports she experienced RUQ pain intermittently every week or so but on this occasion pain was so severe and persistent that she could not get comfortable. She has known since September of this year that she has symptomatic cholelithiasis and she needs cholecystectomy but she has not followed up with Surgery as outpatient. S Patient was admitted for symptomatic cholelithiasis. MRCP was ordered as there was CBD dilatation on US to r/o CBD obstruction. There was no evidence of that but MRCP showed early cholecystitis for which patient was started on Rocephin and flagyl. Patient was evaluated by General surgery and was taken to OR today for Lap Cholecystectomy. Operative note not available to review but Surgeon on the case mentioned that there was evidence of cholecystitis and GB appared gangrenous. Patient was discharged home once her post op pain was reasonably controlled and she was able to tolerate oral diet and she was cleared to go by the Surgeon. No need for abx as per Surgery. Patient will need to f/u PCP and Dr Beltran as outpatient. Will not need oral abx as outpatient post operatively. Status at Discharge Functional status at discharge: independent ambulation Overall status at discharge: patient is back to baseline Time Spent with Patient Time attestation: Total time spent providing and/or coordinating discharge services: Time spent: greater than 30 minutes Exam Constitutional Vital Signs, click to edit/add: Last Vital Signs Temp 99 F 12/19/22 04:10 Pulse 61 12/19/22 04:10 Resp 16 12/19/22 04:10 BP 132/73 12/19/22 04:10 Pulse Ox 95 12/19/22 07:33 O2 Del Method Room Air 12/19/22 07:33 Documenting provider has reviewed patient's vital signs: yes Common normals: no apparent distress and oriented x3 HENMT Common normals: normocephalic and head/scalp atraumatic Head and scalp: normocephalic and atraumatic Eye Common normals: conjunctivae normal and no scleral icterus Conjunctiva: conjunctiva(e) normal Respiratory Common normals: normal respiratory effort and clear to auscultation bilaterally Auscultation: clear to auscultation bilaterally Cardio Common normals: regular rate, regular rhythm, S1 normal heart sound and S2 normal heart sound Rate: regular rate Rhythm: regular rhythm Heart sounds: S1 normal and S2 normal GI Common normals: Normal to inspection, nondistended, normoactive bowel sounds present, soft to palpation and no hepatosplenomegaly Palpation: soft, tender Details: RUQ and no hepatosplenomegaly Extremity Common normals: no clubbing, cyanosis or edema Neuro Common normals: oriented x3, moves all extremities, no focal motor deficits and no sensory deficits noted Psych Psychiatry clinicians, please identify where your Mental Status Exam is documented: Mental Status Exam documented in the separate MSE Common normals: mental status grossly normal, thought process normal, denies hallucinations, denies homicidal ideation and denies suicidal ideation Thought process: normal thought process DS: Data Data Completed and Pending Labs on day of discharge: Labs from last 24 hours 12/19/22 03:53 WBC 5.9 RBC 4.04 L Hgb 12.3 Hct 37.7 MCV 93.3 MCH 30.4 MCHC 32.6 RDW 13.5 Plt Count 164 MPV 11.1 Neut % (Auto) 63.2 Lymph % (Auto) 22.6 [place] % (Auto) 9.3 Eos % (Auto) 4.1 Baso % (Auto) 0.5 Neut # (Auto) 3.7 Lymph # (Auto) 1.3 [place] # (Auto) 0.6 Eos # (Auto) 0.2 Baso # (Auto) 0.0 Abs Immat Gran (auto) 0.02 Imm/Tot Granulo (auto) 0.3 Sodium 141 Potassium 3.5 Chloride 104 Carbon Dioxide 27.3 Anion Gap 13.2 BUN 8.0 Creatinine 0.75 Est GFR ( Amer) >60 Est GFR (Non-Af Amer) >60 BUN/Creatinine Ratio 10.7 Glucose 103 Calcium 8.6 Total Bilirubin 0.5 AST 35 ALT 95 H Alkaline Phosphatase 114 Total Protein 6.7 Albumin 3.0 L Globulin 3.7 Albumin/Globulin Ratio 0.8 HCG, Quant 2 Discharge Plan Discharge Disposition: Home, Self-Care Condition: Good Discharge Medications: New hydrocodone-acetaminophen 5-325 mg tablet 1 tab PO Q6H PRN (Reason: pain) Qty: 14 0RF Activity: resume usual activities as tolerated Activity Detail: no lifting > 10 lbs for 4 weeks; may shower tomorrow, remove dressings and leave incisions open to air; no tub baths or swimming for 10 days; no driving while taking the [place] Diet: advance to your usual diet and low fat, low cholesterol Patient Instructions: Hydrocodone/Acetaminophen (By mouth) (Vicodin, [place], Lortab), Laparoscopic Cholecystectomy (DC) Forms: Portal Instructions Follow Up Appointments: PCP in one week/ Dr Beltran's office to call you tomorrow to schedule follow up appointment ([phone]) Dr Beltran in 2-3 weeks Discharge Date/Time: 12/19/22 18:45
--- NOTE | 2022-12-19 10:47 | CM.NOTE ---
Rounds made with Dr. Montgomery, pt going to OR at 11:00 today and possible discharge after surgical procedure.
--- NOTE | 2022-12-19 11:40 | NUTR.NU ---
Cholecystectomy 12/19/22. Discussed low fat diet with Lynette at bedside.
[2022-12-19] MEDS: LACTATED RINGER'S SOLUTION 1,000 ML 50 ML IV (13:14)
[2022-12-19] MEDS: BUPIVACAINE HCL 0.5% PF 50 MG/10 ML VIAL 20 ML INJ (13:17)
--- NOTE | 2022-12-19 13:47 | PC.NURSE ---
WOUND SITES X4 TO ABDOMEN WITH DRESSING ON UMBILICUS AND GLUE TO 3 OTHER SITES; ALL DRY
--- NOTE | 2022-12-19 13:53 | PC.NURSE ---
All 4 wound sites dry
--- NOTE | 2022-12-19 14:00 | PC.NURSE ---
Glue sites x3 and dressing to umbilicus all dry
--- NOTE | 2022-12-19 14:05 | PC.NURSE ---
all 4 incisional sites dry to abdomen
[2022-12-19] MEDS: CEFTRIAXONE 1,000 MG in 0.9 % SODIUM CHLORIDE 50 ML 100 MG IV (14:36)
[2022-12-19] MEDS: ENOXAPARIN SODIUM 40 MG/0.4 ML SYRINGE SUBQ (17:26)
--- NOTE | 2022-12-24 14:08 | CM.DCFOLLOWU ---
Person spoke with: patient How are you feeling? really well How is your pain? no pain Did you understand your discharge instructions? yes Do you have any questions about your discharge instructions? no Were you given any prescriptions at discharge? yes Were you able to get your prescriptions filled? yes Do you understand how to take your medications as ordered? yes, not taking pain meds anymore Do you have any questions about your follow up appointment and do you plan to keep your follow up appointment? no and follow up scheduled with Dr. Beltran 12/25/22 Is there anything else that you would like to discuss? no Questions/Comments/Concerns/Other:
== END 2022-12-19 18:45 | disposition home or self-care (01) ==
LOC: ER 09:06 → MS 09:23
PROVIDERS: Surgery; Admitting Provider Internal Medicine; Emergency Provider Emergency Medicine; Visit Provider Internal Medicine
PROC: (CPT 47562; principal; 2022-12-19 10:40)
DX: K80.12 Calculus of gallbladder with acute and chronic cholecystitis without obstruction (principal); R51.9 Headache, unspecified; R74.01 Elevation of levels of liver transaminase levels; R82.998 Other abnormal findings in urine; E66.01 Morbid (severe) obesity due to excess calories; Z68.41 Body mass index [BMI] 40.0-44.9, adult
CPT/HCPCS: 47562; 36415; 71045; 74160; 74181; 76705; 80053; 81001; 83036; 83605; 83690; 84484; 84702; 84703; 85025; 87086; 88304; 93005; 94761; 96365; 96366; 96367; 96372; 96376; 99285; G0378; J2704; Q9966; Q9967

== ENCOUNTER 2023-04-30 13:31 | Outpatient (OUT) | payer OTHER, SELFPAY | END 2023-04-30 13:32 | disposition home or self-care (01) | LOC: PST 13:32 | PROVIDERS: Visit Provider Surgery | DX: Z01.818 Encounter for other preprocedural examination (principal); Z12.11 Encounter for screening for malignant neoplasm of colon ==

== ENCOUNTER 2023-05-08 07:49 | Day surgery (SDC) | payer OTHER, SELFPAY ==
--- NOTE | 2023-05-08 | OP_ITS ---
OPERATION DATE: 05/08/2023 PREOPERATIVE DIAGNOSIS: Colorectal screening. POSTOPERATIVE DIAGNOSIS: Moderate sigmoid diverticulosis. PROCEDURE: Colonoscopy to cecum. SURGEON: Bennett Beltran M.D. ANESTHESIA: Monitored anesthesia care. ESTIMATED BLOOD LOSS: Zero. INDICATIONS AND CONSENT: Patient is a 63-year-old female presents for colorectal screening. Indications, risks, benefits, alternatives of proceeding with colonoscopy were explained extensively to the patient, including the risks of bleeding, colon perforation or anesthetic complications. All of her questions were answered. Informed consent was obtained. PROCEDURE: Patient brought to the operating room, placed in the left lateral decubitus position. Monitored anesthesia care was provided. Rectal exam was performed which showed no masses or blood. The scope was inserted into the anal canal. Under direct visualization was advanced. With the aid of abdominal compression, it was advanced to the cecum where cecal markings were clearly identified. There was noted to be a good prep. Upon withdrawal of the scope, mucosal surfaces were carefully examined. There were no mass lesions or polyps. No inflammatory changes or ulcerations. There was moderate sigmoid diverticulosis without inflammatory changes or scarring. The scope was retroflexed in the anal canal. There was no significant hemorrhoidal disease. Scope was then withdrawn. Patient tolerated procedure well, was sent to recovery room in good condition. Follow up screening colonoscopy should be in 10 years. CC: Patient?s family physician TEREZA
--- OUTSIDE RECORDS SUMMARY | 2023-05-08 07:52 | XMS_ITS | CCD ---
Author Name Unknown Address [address] [place] [address] Organization [facility] Care Team Providers Care Clinical Psychologist Licensed Name Role Phone BLAIRE DRISCOLL Attending Unavailable LORETTA ESPINOSA Consulting Unavailable DR KIMBERLYN CASTELLANOS Primary Care Unavailable BLAIRE DRISCOLL Admitting Unavailable BLAIRE DRISCOLL Consulting Unavailable Jesus Soares Primary Care Physician [phone] Jesus Soares Attending Unavailable Jesus Soares Admitting Unavailable Jesus Soares Referring Unavailable Loretta ACE Attending Unavailable Loretta ACE Attending Unavailable SHAIKH PENNY Primary Care Unavailable Loretta ACE Attending Unavailable Jesus Soares Attending Unavailable Jesus Soares Attending Unavailable Jesus Soares Attending Unavailable Jesus Soares Attending Unavailable Allergies Allergy Classification Reported Allergen(s) Allergy Type Date of Onset Reaction(s) Facility (1 source) buPROPion; Translations: [Wellbutrin] Drug Allergy [facility] Repository (1 source) No Known Medication Allergies; Translations: [No Known Medication Allergies] Propensity to adverse reactions (disorder) [facility] Repository Medications Current Medications Medication Drug Class(es) Dates Sig (Normalized) Sig (Original) 24 hr buPROPion hydrochloride 150 mg extended release oral tablet (2 sources) Aminoketone Start: 04-01-2023 take 1 tablet by mouth every twenty-four hours Wellbutrin XL 150 mg/24 hours Tab-ER 150 mg = 1 tab(s), Oral, q24hr, # 90 tab(s), Refills(s) 0, Pharmacy: [facility]/pharmacy #[id number], 162.8, cm, 04/01/23 7:39:00 EST, Height/Length Dosing, 117.5, kg, 04/01/23 7:39:00 EST, Weight Dosing Start Date: 04/01/23 Status: Ordered Problems Problem Classification Problem Date Documented Da te Episodic/Chronic Asthma (4 sources) Unspecified asthma, uncomplicated; Translations: [Asthma] Onset: 07-13-2022 12-19-2022 Chronic Biliary tract disease (7 sources) Acute cholecystitis; Translations: [Acute cholecystitis] Onset: 12-25-2022 Episodic Essential hypertension (4 sources) Essential (primary) hypertension; Translations: [Essential hypertension] Onset: 07-13-2022 12-19-2022 Chronic Headache; including migraine (3 sources) Migraine 12-25-2022 Chronic Miscellaneous mental health disorders (2 sources) Sensitivity 04-01-2023 Episodic Nonspecific chest pain (4 sources) Chest pain, unspecified; Translations: [Other chest pain] Onset: 07-12-2022 Episodic Other nervous system disorders (3 sources) 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 Other nutritional; endocrine; and metabolic disorders (1 source) Body mass index 40+ - severely obese 04-23-2023 Chronic Other nutritional; endocrine; and metabolic disorders (1 source) Morbid obesity 04-23-2023 Chronic Other screening for suspected conditions (not mental disorders or infectious disease) (1 source) Screening for malignant neoplasm of colon done; Translations: [Encounter for screening for malignant neoplasm of colon] Onset: 04-23-2023 Episodic Other skin disorders (3 sources) Loss of hair 12-25-2022 Episodic Other skin disorders (2 sources) Keratosis 12-31-2022 Episodic Unclassified (2 sources) Influenza vaccination declined 04-01-2023 Unclassified (7 sources) Patient encounter status 04-01-2023 Results Test Name Value Interpretation Reference Range Facility Ambulatory Visit Summaryon 0 05-07-2023 Ambulatory Visit Summary LYNETTE PRADO :1960 Visit Date:05/07/2023 Ambulatory Visit Instructions Your Diagnosis Emotional sensitivity Essential hypertension Excessive dietary caloric intake Morbid obesity BMI 40.0-44.9, adult Your Care Team Attending Physician - Jesus Soares MD Primary Care Physician - Jesus Soares MD This Is Your Medications List buPROPion (Wellbutrin XL 150 mg/24 hours Tab-ER) Procedures Performed Cholecystectomy (12/19/2022), Bunionectomy, Cardiac catheter, Endometrial ablation, Hysteroscopy. Discharge Vitals Temperature (Temporal Artery) 36.8 ?C Heart Rate (Peripheral) 76 Respiratory Rate 16 Blood Pressure 126/78 Height 162.8 cm Height 64 in Weight 116.8 kg Weight 256.96 lb BMI 44.07 What to do next Scheduled Follow-Up Appointments Saturday 7:00 AM EST With: Rodger TRIMBLE, Jesus [place] Where: [facility] [place] [facility] Office/Clini c Noteon 05-07-2023 Family Medicine Office/Clinic Note HPI Staff Lynette is a 62 year old female presenting for 6 week follow up DUSTIN added bupropion for emotional sensitivity no side effects labs done 04/01/23 flu: due questions/concerns: History of Present Illness Here for follow up. Doing really well with the meds Feels better. Wants to discuss weight loss options. Review of Systems PHQ Score Initial Depression Screen Score: 0 SCORE Physical Exam Vitals & Measurements T: 36.8 ?C(Temporal Artery) HR: 76(Peripheral) RR: 16 BP: 126/78 SpO2: 99% HT: 64 in HT: 162.8 cm WT: 116.8 kg WT: 256.96 lb BMI: 44.07 General: alert, no acute distress ENMT: oral mucosa moist, Cardiovascular: normal peripheral perfusion Respiratory: respirations non labored Extremities: no deformity, no trauma Neurological: oriented x 4, LOC appropriate for age, CN II-XII intact, motor strength equal & normal bilaterally, speech normal Assessment/Plan 1. Emotional sensitivity (R45.89: Other symptoms and signs involving emotional state) Doing well. Wellbutrin is helping her sleep. Pt feels so much better. Will refill and see back in 6 weeks. Ordered: buPROPion, 150 mg = 1 tab(s), Oral, q24hr, # 90 tab(s), Refills(s) 0, Pharmacy: [facility]/pharmacy #[id number], 162.8, cm, 05/07/23 7:09:00 EST, Height/Length Dosing, 116.8, kg, 05/07/23 7:09:00 EST, Weight Dosing 2. Essential hypertension (I10: Essential (primary) hypertension) At goal without meds. 3. Excessive dietary caloric intake (R63.2: Polyphagia) Will start wegovy. Follow up in 6 week. Discussed diet and exercise 4. Morbid obesity (E66.01: Morbid (severe) obesity due to excess calories) as above Ordered: buPROPion, 150 mg = 1 tab(s), Oral, q24hr, # 90 tab(s), Refills(s) 0, Pharmacy: [facility]/pharmacy #[id number], 162.8, cm, 05/07/23 7:09:00 EST, Height/Length Dosing, 116.8, kg, 05/07/23 7:09:00 EST, Weight Dosing 5. BMI 40.0-44.9, adult (Z68.41: Body mass index [BMI] 40.0-44.9, adult) BMI education uploaded to the portal. Ordered: buPROPion, 150 mg = 1 tab(s), Oral, q24hr, # 90 tab(s), Refills(s) 0, Pharmacy: [facility]/pharmacy #[id number], 162.8, cm, 05/07/23 7:09:00 EST, Height/Length Dosing, 116.8, kg, 05/07/23 7:09:00 EST, Weight Dosing Follow-up No qualifying data available Patient Education BMI for Adults Problem List/Past Medical History Ongoing Acute gangrenous cholecystitis Asthma BMI 40.0-44.9, adult Cholelithiasis Colon cancer screening Emotional sensitivity Essential hypertension Excessive dietary caloric intake Hair loss Influenza vaccination declined Keratosis Migraines Morbid obesity Historical No qualifying data Procedure/Surgical History Cholecystectomy (12/19/2022), Bunionectomy, Cardiac catheter, Endometrial ablation, Hysteroscopy. Medications Wellbutrin XL 150 mg/24 hours Tab-ER, 150 mg= 1 tab(s), Oral, q24hr Allergies No Known Allergies No Known Medication Allergies Social History Alcohol Current, 1-2 times per week, 04/23/2023 Substance Abuse - Denies Substance Abuse, 04/23/2023 Tobacco Never (less than 100 in lifetime) Tobacco Use:. Never Smokeless Tobacco Use:., 05/07/2023 Family History Hypertension: Father. Immunizations Vaccine Date Status Comments influenza virus vaccine, inactivated - Not Given Patient Refuses very sick in past with flu shot will not take them SARS-CoV-2 (COVID-19) mRNA BNT-162b2 vax 04/01/2021 Recorded SARS-CoV-2 (COVID-19) mRNA BNT-162b2 vax 03/11/2021 Recorded 2022-12-19: TPV50 influenza virus vaccine, inactivated 03/05/2018 Recorded Normal [facility] Comment on above: Result Comment: Elec tronically Signed By: Rodger TRIMBLE, Jesus Mcfarland.br\Date and Time Signed: 05/07/23 07:20 EST Patient Educationon 05-07-19 Patient Education Nutrition BMI for Adults What is BMI? Body mass index (BMI) is a number that is calculated from a person's weight and height. BMI can help estimate how much of a person's weight is composed of fat. BMI does not measure body fat directly. Rather, it is an alternative to procedures that directly measure body fat, which can be difficult and expensive. BMI can help identify people who may be at higher risk for certain medical problems. What are BMI measurements used for? BMI is used as a screening tool to identify possible weight problems. It helps determine whether a person is obese, overweight, a healthy weight, or underweight. BMI is useful for: ? Identifying a weight problem that may be related to a medical condition or may increase the risk for medical problems. ? Promoting changes, such as changes in diet and exercise, to help reach a healthy weight. BMI screening can be repeated to see if these changes are working. How is BMI calculated? BMI involves measuring your weight in relation to your height. Both height and weight are measured, and the BMI is calculated from those numbers. This can be done either in [place] or metric measurements. Note that charts and online BMI calculators are available to help you find your BMI quickly and easily without having to do these calculations yourself. To calculate your BMI in [place] measurements: 1. Measure your weight in pounds (lb). 2. Multiply the number of pounds by 703. ? For example, for a person who weighs 180 lb, multiply that number by 703, which equals 126,540. 3. Measure your height in inches. Then multiply that number by itself to get a measurement called inches squared. ? For example, for a person who is 70 inches tall, the inches squared measurement is 70 inches x 70 inches, which equals 4,900 inches squared. 4. Divide the total from step 2 (number of lb x 703) by the total from step 3 (inches squared): 126,540 ? 4,900 = 25.8. This is your BMI. To calculate your BMI in metric measurements: 1. Measure your weight in kilograms (kg). 2. Measure your height in meters (m). Then multiply that number by itself to get a measurement called meters squared. ? For example, for a person who is 1.75 m tall, the meters squared measurement is 1.75 m x 1.75 m, which is equal to 3.1 meters squared. 3. Divide the number of kilograms (your weight) by the meters squared number. In this example: 70 ? 3.1 = 22.6. This is your BMI. What do the results mean? BMI charts are used to identify whether you are underweight, normal weight, overweight, or obese. The following guidelines will be used: ? Underweight: BMI less than 18.5. ? Normal weight: BMI between 18.5 and 24.9. ? Overweight: BMI between 25 and 29.9. ? Obese: BMI of 30 or above. Keep these notes in mind: ? Weight includes both fat and muscle, so someone with a muscular build, such as an athlete, may have a BMI that is higher than 24.9. In cases like these, BMI is not an accurate measure of body fat. ? To determine if excess body fat is the cause of a BMI of 25 or higher, further assessments may need to be done by a health care provider. ? BMI is usually interpreted in the same way for men and women. Where to find more information For more information about BMI, including tools to quickly calculate your BMI, go to these websites: ? Centers for Disease Control and Prevention: www.cdc.gov ? [place] Heart Association: www.heart.org ? National Heart, Lung, and Blood [place]: www.nhlbi.nih.gov Summary ? Body mass index (BMI) is a number that is calculated from a person's weight and height. ? BMI may help estimate how much of a person's weight is composed of fat. BMI can help identify those who may be at higher risk for certain medical problems. ? BMI can be measured using [place] measurements or metric measurements. ? BMI charts are used to identify whether you are underweight, normal weight, overweight, or obese. This information is not intended to replace advice given to you by your health care provider. Make sure you discuss any questions you have with your health care provider. Document Revised: 01/13/2020 Document Reviewed: 11/20/2019 [employer] Patient Education ? 2022 [place]. [facility] Consent for Procedure/Surger yon 04-24-2023 Consent for Procedure/Surgery [id number] [facility] Ambulatory Visit Summaryon 1 06-24-2022 Ambulatory Visit Summary LYNETTE PRADO :1960 Visit Date:04/23/2023 Ambulatory Visit Instructions Your Care Team Attending Physician - MALKA TRIMBLE, Loretta Michelle Primary Care Physician - Jesus Soares MD Referring Physician - Jesus Soares MD This Is Your Medications List Contact prescribing physician if questions or concerns buPROPion (Wellbutrin XL 150 mg/24 hours Tab-ER) Procedures Performed Cholecystectomy (12/19/2022), Bunionectomy, Cardiac catheter, Endometrial ablation, Hysteroscopy. Discharge Vitals Heart Rate (Peripheral) 76 Respiratory Rate 16 Blood Pressure 128/90 Height 162.8 cm Height 64 in Weight 114 kg Weight 250.8 lb BMI 43.01 What to do next Scheduled Follow-Up Appointments Saturday 7:00 AM EST With: Jesus Soares MD Where: [facility] Ambulatory Visit Summaryon 06-01-2022 Ambulatory Visit Summary LYNETTE PRADO :1960 Visit Date:04/01/2023 Ambulatory Visit Instructions Your Diagnosis Physical exam Colon cancer screening Influenza vaccination declined BMI 40.0-44.9, adult Class 3 obesity Nonsmoker Your Care Team Attending Physician - Jesus Soares MD Primary Care Physician - Jesus Soares MD Procedures Performed Cholecystectomy (12/19/2022), Bunionectomy, Cardiac catheter, Endometrial ablation, Hysteroscopy. Discharge Vitals Temperature (Temporal Artery) 36.7 ?C Heart Rate (Peripheral) 68 Respiratory Rate 14 Blood Pressure 140/86 Height 162.8 cm Height 64 in Weight 117.5 kg Weight 258.5 lb BMI 44.33 What to do next Scheduled Follow-Up Appointments Saturday 7:00 AM EST With: Jesus Soares MD Where: [facility] [place] [facility] Auto Diffon 04-01-2023 Basophils/100 WBC (Bld) 1.2 % Normal 0.0-2.0 [facility] Comment on above: Order Comment: Order Added by Discern Expert. Performed By: #### 2 229259, 1968988, 10378950, 85786049, 0835519, 5324048 ####[facility] [address] [place] [address] Basophils/Leukocytes Auto (Bld) [Pure # fraction] 0.1 E9/L Normal 0.0-0.2 [facility] Comment on above: Order Comment: Order Added by Discern Expert. Performed By: #### 2 914582, 5190482, 91376657, 55801579, 9389069, 6706042 ####[facility] [address] [place] [address] Eosinophils/100 WBC (Bld) 3.9 % Normal 0.0-8.0 [facility] Comment on above: Order Comment: Order Added by Discern Expert. Performed By: #### 2 867059, 8695246, 71376806, 62173329, 3670649, 9161930 ####[facility] [address] [place] [address] Eosinophils/Leukocyte s Auto (Bld) [Pure # fraction] 0.2 E9/L Normal 0.0-0.5 [facility] Comment on above: Order Comment: Order Added by Discern Expert. Performed By: #### 2 451422, 8440871, 06458000, 11051563, 9810614, 5978278 ####[facility] [address] [place] [address] Lymphocytes/100 WBC (Bld) 34.6 % Normal 14.0-50.0 [facility] Comment on above: Order Comment: Order Added by Discern Expert. Performed By: #### 2 857418, 6298541, 28701202, 52639915, 9391893, 7230243 ####[address] [place] [address] Lymphocytes/Leukocyte s Auto (Bld) [Pure # fraction] 1.8 E9/L Normal 1.0-4.0 [facility] Comment on above: Order Comment: Order Added by Discern Expert. Performed By: #### 2 852797, 2488798, 57928221, 52926082, 1514741, 7682007 ####[address] [place] [address] Monocytes/100 WBC (Bld) 7.6 % Normal 4.0-14.0 [facility] Comment on above: Order Comment: Order Added by Miranda Expert. Performed By: #### 2 518053, 6391604, 45906812, 97338972, 1314313, 3157854 ####[address] [address] Monocytes/Leukocytes Auto (Bld) [Pure # fraction] 0.4 E9/L Normal 0.2-1.0 [facility] Comment on above: Order Comment: Order Added by Miranda Expert. Performed By: #### 2 244705, 7329670, 02504655, 58106068, 0203900, 8442541 ####[address] [place] [address] Neutrophils/100 WBC (Bld) 52.7 % Normal 36.0-75.0 [facility] Comment on above: Order Comment: Order Added by Discern Expert. Performed By: #### 2 461187, 4687633, 50444353, 22693369, 4611619, 6473328 ####[address] [place] [address] Neutrophils/Leukocyte s Auto (Bld) [Pure # fraction] 2.7 E9/L Normal 2.0-7.5 [facility] Comment on above: Order Comment: Order Added by Discern Expert. Performed By: #### 2 451167, 3594465, 38775775, 90470019, 5998720, 0706279 ####[facility] [address] [place] [address] CBC w/ Auto Diffon Erythrocyte distribution width (RBC) [Ratio] 14.3 % High 10.9-14.2 [facility] Comment on above: Performed By: #### 2 580391, 2672125, 89360031, 61381173, 7416285, 8298796 ####[facility] [address] [place] [address] Hematocrit (Bld) [Volume fraction] 41.1 % Normal 34.0-46.0 [facility] Comment on above: Performed By: #### 2 741038, 9311116, 35697910, 25021205, 3810395, 3473165 ####[address] [address] Hemoglobin (Bld) [Mass/Vol] 13.7 g/dL Normal 12.0-16.0 [facility] Comment on above: Performed By: #### 2 121252, 0672503, 19320966, 37998630, 1000639, 2187111 ####[address] [address] MCH (RBC) [Entitic mass] 30.2 pg Normal 27.0-34.0 [facility] Comment on above: Performed By: #### 2 689597, 1369250, 62735969, 65658266, 0389731, 7161905 ####[address] [address] MCHC (RBC) [Mass/Vol] 33.2 g/dL Normal 31.4-36.0 [facility] Comment on above: Performed By: #### 2 338278, 0016895, 02747912, 01447330, 0910679, 7023696 ####[address] [place] [address] MCV (RBC) [Entitic vol] 91.0 fL Normal 80.0-100.0 [facility] Comment on above: Performed By: #### 2 166113, 3076793, 17302113, 89638856, 7448460, 6115543 ####[facility] [address] [place] [address] Platelet mean volume (Bld) [Entitic vol] 9.4 fL Normal 6.4-10.8 [facility] Comment on above: Performed By: #### 2 464709, 5535567, 67256935, 80381604, 8608639, 1911444 ####[facility] [address] [place] [address] Platelets (Bld) [#/Vol] 221.0 E9/L Normal 150.0-500.0 [facility] Comment on above: Performed By: #### 2 783964, 6965881, 41434497, 48180655, 0842399, 6144896 ####[address] RBC (Bld) [#/Vol] 4.5 E12/L Normal 4.3-5.9 [facility] Comment on above: Performed By: #### 2 696695, 3772629, 61819005, 60890148, 3515432, 6163964 ####[address] [place] [address] WBC corrected for nucl RBC Auto (Bld) [#/Vol] 5.1 E9/L Normal 4.0-11.0 [facility] Comment on above: Performed By: #### 2 308706, 8793438, 55477652, 42062567, 7438531, 2100464 ####[address] [place] [address] CHEMISTRYOrdered By: SYSTEM SYSTEM on 04-01-2023 Albumin [Mass/Vol] 3.7 g/dL Normal 3.3 - 5.0 gm/dL [facility] Albumin/Globulin [Mass ratio] 1.0 {ratio} Low 1.1 - 2.2 [facility] ALP [Catalytic activity/Vol] 69 [iU]/d Normal 21 - 98 Int._Unit/L [facility] ALT No additional P-5'-P [Catalytic activity/Vol] 16 [iU]/d Normal 6 - 46 Int._Unit/L [facility] Anion gap [Moles/Vol] 8 mmol/L Normal 6 - 16 mEq/L [facility] AST [Catalytic activity/Vol] 21 [iU]/d Normal 5 - 43 Int._Unit/L [facility] Bilirubin [Mass/Vol] 0.4 mg/dL Normal 0.0 - 1 .1 mg/dL [facility] Calcium [Mass/Vol] 9.1 mg/dL Normal 8.9 - 11. 1 mg/dL [facility] Chloride [Moles/Vol] 109 mmol/L Normal 101 - 1 11 mmol/L [facility] Cholesterol [Mass/Vol] 192 mg/dL Normal 120 - 200 mg/dL [facility] Cholesterol in HDL [Mass/Vol] 55 mg/dL Invalid Interpretation Code [facility] Comment on above: Interpretive Data: H DL > or equal to 60 mg/dL: Low cardiovascular risk HDL < 40 mg/dL : High cardiovascular risk Cholesterol in LDL [Mass/Vol] 118 mg/dL Normal <=129mg/dL [facility] Cholesterol in VLDL [Mass/Vol] 19 mg/dL Normal 7 - 40 mg/dL [facility] CO2 [Moles/Vol] 28 mmol/L Normal 21 - 31 mmol/L [facility] Creatinine [Mass/Vol] 0.7 mg/dL Normal 0.5 - 1.3 mg/dL [facility] GFR/1.73 sq M.predicted among non-blacks MDRD (S/P/Bld) [Vol rate/Area] 99 mL/min/1.73 m2 Normal >=59mL/min/1 .73 m2 [facility] Comment on above: Interpretive Data: C hronic kidney disease could be indicated at eGFR's of less than 60 mL/min/1.73m2. Kidney failure is indicated at less than 15 mL/min/1.73m2. Globulin (S) [Mass/Vol] 3.9 g/dL Normal 1.4 - 4.0 gm/dL [facility] Glucose [Mass/Vol] 104 mg/dL Normal 55 - 199 mg/dL [facility] Comment on above: Interpretive Data: I f this glucose result represents a fasting glucose, interpretation should refer to the following reference range: 55-99 mg/dL Potassium [Moles/Vol] 4.2 mmol/L Normal 3.5 - 5.3 mmol/L [facility] Protein [Mass/Vol] 7.6 g/dL Normal 6.0 - 7.8 gm/dL [facility] Sodium [Moles/Vol] 141 mmol/L Normal 135 - 145 mmol/L [facility] Triglyceride [Mass/Vol] 96 mg/dL Normal <=149mg/dL [facility] TSH Qn 3.50 m[IU]/L Normal 0.34 - 5.60 mcIU/mL [facility] Urea nitrogen [Mass/Vol] 18 mg/dL Normal 5 - 21 mg/dL [facility] Urea nitrogen/Creatinine [Mass ratio] 26 mg/mg High - [facility] CMPon 04-01-2023 Albumin [Mass/Vol] 3.7 g/dL Normal 3.3-5.0 [facility] Comment on above: Performed By: #### 2 620434, 7227287, 13719352, 16630536, 4651413, 0526217 ####[facility] [address] [place] [address] Albumin/Globulin (S) [Mass conc ratio] 1.0 Low 1.1-2.2 [facility] Comment on above: Performed By: #### 2 096261, 4878689, 33804104, 55847661, 8386467, 7527940 ####[facility] [address] [place] [address] ALP [Catalytic activity/Vol] 69 Int._Unit/L Normal 21-98 [facility] Comment on above: Performed By: #### 2 074768, 7876717, 47569964, 83015633, 0770343, 3372652 ####[facility] [address] [place] [address] ALT No additional P-5'-P [Catalytic activity/Vol] 16 Int._Unit/L Normal 6-46 [facility] Comment on above: Performed By: #### 2 307005, 8728958, 30082199, 71183889, 2416025, 0729086 ####[facility] [address] [place] [address] Anion gap [Moles/Vol] 8 mmol/L Normal 6-16 [facility] Comment on above: Performed By: #### 2 346563, 3703433, 18092275, 21688875, 3736288, 2156471 ####[facility] [address] [place] [address] AST [Catalytic activity/Vol] 21 Int._Unit/L Normal 5-43 [facility] Comment on above: Performed By: #### 2 704128, 5423460, 38419683, 99257580, 6688662, 1148937 ####[facility] [address] [place] [address] Bilirubin [Mass/Vol] 0.4 mg/dL Normal 0.0-1.1 [facility] Comment on above: Performed By: #### 2 073164, 0702960, 48321258, 45442050, 3416197, 4892987 ####[facility] [address] [place] [address] Calcium [Mass/Vol] 9.1 mg/dL Normal 8.9-11.1 [facility] Comment on above: Performed By: #### 2 167090, 5698442, 40904433, 51420205, 4755130, 1453029 ####[facility] [address] [place] [address] Chloride [Moles/Vol] 109 mmol/L Normal 101-111 [facility] Comment on above: Performed By: #### 2 766596, 2911431, 27156731, 79750459, 0366060, 5312073 ####[facility] [address] [place] [place] [address] CO2 [Moles/Vol] 28 mmol/L Normal 21-31 [facility] Comment on above: Performed By: #### 2 [id number], 8210437, 50601305, [id number], 4600232, 6228628 ####[facility] [address] [place] [address] Creatinine [Mass/Vol] 0.7 mg/dL Normal 0.5-1.3 [facility] Comment on above: Performed By: #### 2 173184, 6683239, 85680722, 29233319, 4643764, 7386119 ####[facility] [address] [place] [address] Globulin (S) [Mass/Vol] 3.9 g/dL Normal 1.4-4.0 [facility] Comment on above: Performed By: #### 2 950332, 2012309, 74671602, 42869563, 8131854, 7086528 ####[facility] [address] [place] [address] Glucose [Mass/Vol] 104 mg/dL Normal 55-199 [facility] Comment on above: Result Comment: If t his glucose result represents a fasting glucose, interpretation should refer to the following reference range: 55-99 mg/dL Performed By: #### 2 549272, 0494751, 02067124, 67644240, 9728345, 2916518 ####[facility] [address] [place] [address] Potassium [Moles/Vol] 4.2 mmol/L Normal 3.5-5.3 [facility] Comment on above: Performed By: #### 2 415037, 6415585, 66951013, 04376055, 8408781, 2843287 ####[facility] [address] [place] [address] Protein [Mass/Vol] 7.6 g/dL Normal 6.0-7.8 [facility] Comment on above: Performed By: #### 2 609823, 8654778, 64385961, 09304729, 4350699, 3911923 ####[facility] [address] [place] [address] Sodium [Moles/Vol] 141 mmol/L Normal 135-145 [facility] Comment on above: Performed By: #### 2 400157, 6586432, 68923351, 56083230, 5304162, 1508329 ####[facility] [address] [place] [address] Urea nitrogen [Mass/Vol] 18 mg/dL Normal 5-21 [facility] Comment on above: Performed By: #### 2 373398, 0384530, 69190255, 01420250, 6472685, 6638416 ####[facility] [address] [place] [address] Urea nitrogen/Creatinine [Mass ratio] 26 No Units High 10-20 [facility] Comment on above: Performed By: #### 2 399311, 2141573, 02830466, 44026758, 2297339, 0673298 ####[facility] [address] [place] [address] Family Medicine Office/Clini c Noteon 04-01-2023 Family Medicine Office/Clinic Note HPI Staff Lynette is a 62 year old female presenting for 3 month follow up for physical exam Health Maintenance: Colonoscopy: needs referral Dexa: never Mammo: only one long time ago Pap: no longer does these Last Labs: 12/19/22 Immunizations: Flu: refused History of Present Illness Here for CPE. Struggling with adjustments into Assisted Has not taken care of herself and wants to start. Needs labs Struggling with emotional eating. Review of Systems PHQ Score Initial Depression Screen Score: 1 SCORE Physical Exam Vitals & Measurements T: 36.7 ?C(Temporal Artery) HR: 68(Peripheral) RR: 14 BP: 138/88 SpO2: 99% HT: 64 in HT: 162.8 cm WT: 117.5 kg WT: 258.5 lb BMI: 44.33 General: alert, no acute distress ENMT: oral mucosa moist, Cardiovascular: regular rate and rhythm, normal peripheral perfusion Respiratory: Lungs CTA, respirations non labored Extremities: no deformity, no trauma Neurological: oriented x 4, LOC appropriate for age, CN II-XII intact, motor strength equal & normal bilaterally, speech normal Abdomen: Soft, Nontender, Non-distended, + BS Assessment/Plan 1. Physical exam (Z00.00: Encounter for general adult medical examination without abnormal findings) Anticipatory guidance given. Discussed diet and exercise. Discussed immunizations. Ordered: buPROPion, 150 mg = 1 tab(s), Oral, q24hr, # 90 tab(s), Refills(s) 0, Pharmacy: [facility] #[id number], 162.8, cm, 04/01/23 7:39:00 EST, Height/Length Dosing, 117.5, kg, 04/01/23 7:39:00 EST, Weight Dosing CBC w/ Auto Diff Comprehensive Metabolic Panel Lab Specimen Collect [id number] Lipid Panel MA Mamm Screen w/CAD if perf and 3D Librado TSH With T4fr Reflex 2. Breast cancer screening (Z12.39: Encounter for other screening for malignant neoplasm of breast) - Mammo ordered Ordered: buPROPion, 150 mg = 1 tab(s), Oral, q24hr, # 90 tab(s), Refills(s) 0, Pharmacy: [facility] #[id number], 162.8, cm, 04/01/23 7:39:00 EST, Height/Length Dosing, 117.5, kg, 04/01/23 7:39:00 EST, Weight Dosing MA Mamm Screen w/CAD if perf and 3D Librado 3. Colon cancer screening (Z12.11: Encounter for screening for malignant neoplasm of colon) - Will send for colonoscopy Ordered: buPROPion, 150 mg = 1 tab(s), Oral, q24hr, # 90 tab(s), Refills(s) 0, Pharmacy: [facility] #[id number], 162.8, cm, 04/01/23 7:39:00 EST, Height/Length Dosing, 117.5, kg, 04/01/23 7:39:00 EST, Weight Dosing CBC w/ Auto Diff Comprehensive Metabolic Panel [facility] Internal Ambulatory Referral Lipid Panel MA Mamm Screen w/CAD if perf and 3D Librado TSH With T4fr Reflex 4. Influenza vaccination declined (Z28.21: Immunization not carried out because of patient refusal) - Encouraged, but declined Ordered: buPROPion, 150 mg = 1 tab(s), Oral, q24hr, # 90 tab(s), Refills(s) 0, Pharmacy: [facility]/pharmacy #[id number], 162.8, cm, 04/01/23 7:39:00 EST, Height/Length Dosing, 117.5, kg, 04/01/23 7:39:00 EST, Weight Dosing CBC w/ Auto Diff Comprehensive Metabolic Panel Lipid Panel MA Mamm Screen w/CAD if perf and 3D Librado TSH With T4fr Reflex 5. BMI 40.0-44.9, adult (Z68.41: Body mass index [BMI] 40.0-44.9, adult) - BMI education given Ordered: buPROPion, 150 mg = 1 tab(s), Oral, q24hr, # 90 tab(s), Refills(s) 0, Pharmacy: [facility] #[id number], 162.8, cm, 04/01/23 7:39:00 EST, Height/Length Dosing, 117.5, kg, 04/01/23 7:39:00 EST, Weight Dosing CBC w/ Auto Diff Comprehensive Metabolic Panel Lab Specimen Collect 12210 Lipid Panel MA Mamm Screen w/CAD if perf and 3D Librado TSH With T4fr Reflex 6. Class 3 obesity (E66.01: Morbid (severe) obesity due to excess calories) - Discussed diet and exercise in detail. Ordered: buPROPion, 150 mg = 1 tab(s), Oral, q24hr, # 90 tab(s), Refills(s) 0, [id number], 162.8, cm, 04/01/23 7:39:00 EST, Height/Length Dosing, 117.5, kg, 04/01/23 7:39:00 EST, Weight Dosing CBC w/ Auto Diff Comprehensive Metabolic Panel Lab Specimen Collect 54021 Lipid Panel MA Mamm Screen w/CAD if perf and 3D Librado TSH With T4fr Reflex 7. Nonsmoker (Z78.9: Other specified health status) - Please continue to not smoke. Ordered: buPROPion, 150 mg = 1 tab(s), Oral, q24hr, # 90 tab(s), Refills(s) 0, Pharmacy: [facility]/pharmacy #[id number], 162.8, cm, 04/01/23 7:39:00 EST, Height/Length Dosing, 117.5, kg, 04/01/23 7:39:00 EST, Weight Dosing CBC w/ Auto Diff Comprehensive Metabolic Panel Lipid Panel TSH With T4fr Reflex 8. Emotional sensitivity (R45.89: Other symptoms and signs involving emotional state) - Will add Wellbutrin to help. - Follow up in 6 weeks. Ordered: buPROPion, 150 mg = 1 tab(s), Oral, q24hr, # 90 tab(s), Refills(s) 0, Pharmacy: [facility]/pharmacy #[id number], 162.8, cm, 04/01/23 7:39:00 EST, Height/Length Dosing, 117.5, kg, 04/01/23 7:39:00 EST, Weight Dosing Follow-up No qualifying data available Problem List/Past Medical History Ongoing Acute gangrenous cholecystitis Asthma Cast's palsy Breast cancer screening Cholelithiasis Colon cance (more content not included)... Normal [facility] Comment on above: Result Comment: Elec tronically Signed By: Rodger TRIMBLE, Jesus Mcfarland.br\Date and Time Signed: 04/01/23 08:16 EST HEMATOLOGYOrdered By: SYSTEM SYSTEM on 04-01-2023 Basophils/100 WBC (Bld) 1.2 % Normal 0.0 - 2.0 % [facility] Basophils/Leukocytes Auto (Bld) [Pure # fraction] 0.1 E9/L Normal 0.0 - 0.2 E9/L [facility] Eosinophils/100 WBC (Bld) 3.9 % Normal 0.0 - 8.0 % [facility] Eosinophils/Leukocyte s Auto (Bld) [Pure # fraction] 0.2 E9/L Normal 0.0 - 0.5 E9/L [facility] Lymphocytes/100 WBC (Bld) 34.6 % Normal 14.0 - 50.0 % [facility] Lymphocytes/Leukocyte s Auto (Bld) [Pure # fraction] 1.8 E9/L Normal 1.0 - 4.0 E9/L [facility] Monocytes/100 WBC (Bld) 7.6 % Normal 4.0 - 14.0 % [facility] Monocytes/Leukocytes Auto (Bld) [Pure # fraction] 0.4 E9/L Normal 0.2 - 1.0 E9/L [facility] Neutrophils/100 WBC (Bld) 52.7 % Normal 36.0 - 75.0 % [facility] Neutrophils/Leukocyte s Auto (Bld) [Pure # fraction] 2.7 E9/L Normal 2.0 - 7.5 E9/L [facility] HEMATOLOGYOrdered By: Neptali Olivares on 04-01-2023 Erythrocyte distribution width (RBC) [Ratio] 14.3 % High 10.9 - 14.2 % [facility] Hematocrit (Bld) [Volume fraction] 41.1 % Normal 34.0 - 46.0 % [facility] Hemoglobin (Bld) [Mass/Vol] 13.7 g/dL Normal 12.0 - 16.0 gm/dL [facility] MCH (RBC) [Entitic mass] 30.2 pg Normal 27.0 - 34.0 pg [facility] MCHC (RBC) [Mass/Vol] 33.2 g/dL Normal 31.4 - 36.0 gm/dL [facility] MCV (RBC) [Entitic vol] 91.0 fL Normal 80.0 - 100.0 fL [facility] Platelet mean volume (Bld) [Entitic vol] 9.4 fL Normal 6.4 - 10.8 fL [facility] Platelets (Bld) [#/Vol] 221.0 E9/L Normal 150.0 - 500.0 E9/L [facility] RBC (Bld) [#/Vol] 4.5 E12/L Normal 4.3 - 5.9 E12/L [facility] WBC corrected for nucl RBC Auto (Bld) [#/Vol] 5.1 E9/L Normal 4.0 - 11.0 E9/L [facility]eAuto[facility] Lipid Panelon 04-01-2023 Cholesterol [Mass/Vol] 192 mg/dL Normal 120-200 [facility] Comment on above: Performed By: #### 2 534326, 5613204, 47514004, 50327939, 1538390, 9522539 ####[facility] [address] [place] [address] Cholesterol in HDL [Mass/Vol] 55 mg/dL Invalid Interpretation Code [facility] Comment on above: Result Comment: HDL > or equal to 60 mg/dL: Low cardiovascular risk HDL < 40 mg/dL : High cardiovascular risk Performed By: #### 2 974670, 2592382, 44745797, 60241530, 3195621, 9147177 ####[facility] [address] [place] [address] Cholesterol in LDL [Mass/Vol] 118 mg/dL Normal <=129 [facility] Comment on above: Performed By: #### 2 227913, 1202107, 97324347, 16623271, 1799419, 1562954 ####[facility] [address] [place] [address] Cholesterol in VLDL [Mass/Vol] 19 mg/dL Normal 7-40 [facility] Comment on above: Performed By: #### 2 411677, 1460990, 91291772, 52745065, 8407802, 8209140 ####[facility] [address] [place] [address] Triglyceride [Mass/Vol] 96 mg/dL Normal <=149 [facility] Comment on above: Performed By: #### 2 822136, 5469993, 80808605, 33854507, 5606916, 6829180 ####[facility] [address] [place] [address] TSH With T4fr Reflexon 04-01 TSH Qn 3.50 m[IU]/L Normal 0.34-5.60 [facility] Comment on above: Performed By: #### 2 715364, 7842046, 77011069, 16733930, 6662636, 1968448 ####[facility] [address] [place] [address] eGFRon 04-01-2023 GFR/1.73 sq M.predicted among non-blacks MDRD (S/P/Bld) [Vol rate/Area] 99 mL/min/1.73 m2 Normal >=59 [facility] Comment on above: Order Comment: Order added by Discern Expert. Result Comment: Security Officer Supervisor shawn kidney disease could be indicated at eGFR's of less than 60 mL/min/1.73m2. Kidney failure is indicated at less than 15 mL/min/1.73m2. Performed By: #### 2 536514, 3692626, 75399334, 53040045, 7419432, 3041155 ####[facility] [address] [place] [address] Consultation Noteon 02-21-20 23 Consultation Note [id number] .00TIFF Normal [facility] Physician Referralon 023 Physician Referral [id number] .00CD:127 Normal [facility] Ambulatory Visit Summaryon 0 12-31-2022 Ambulatory Visit Summary LYNETTE PRADO :1960 Visit Date:12/31/2022 Ambulatory Visit Instructions Your Diagnosis Acute gangrenous cholecystitis Essential hypertension Asthma Cast's palsy Cholelithiasis Migraines BMI 40.0-44.9, adult Class 3 obesity Keratosis Your Care Team Attending Physician - Jesus Soares MD Primary Care Physician - Jesus Soares MD Procedures Performed Cholecystectomy (12/19/2022), Bunionectomy, Cardiac catheter, Endometrial ablation, Hysteroscopy. Discharge Vitals Temperature (Oral) 36.9 ?C Heart Rate (Peripheral) 84 Respiratory Rate 16 Blood Pressure 124/80 Height 162.8 cm Height 64 in Weight 115.8 kg Weight 254.76 lb BMI 43.69 What to do next Scheduled Follow-Up Appointments Saturday 7:20 AM EST With: Jesus Soares MD Where: [facility] [place] Normal [facility] Family Medicine Office/Clini c Noteon 12-31-2022 Family Medicine Office/Clinic Note Chief Complaint establish care follow up after gallbladder surgery HPI Staff Lynette is a 62 year old female [facility] Acute: follow up gallbladder surgery 12/19. Hospital Ended up at hospital with 4 straight hours of pain, testing revealed over 50 stones and one that was blocking her bile duct so had surgery Doing well, not using anything for pain, doing fine questions/concerns: check spots on face History of Present Illness Lynette Prado is a 62-year-old female who presents today to establish care. After undergoing a cholecystectomy on 12/19/2022, she experienced diarrhea in the initial days following the surgery. She faced a decreased appetite for a week and her diet consisted of soup and Jel-O. Her condition has improved since then. She used to have migraines frequently, but it has been a while since she last experiences a migraine. She had Cast's palsy about 8 to 9 years ago. She is currently not taking any medications. She used to be on a blood pressure medication, but she stopped taking it as she did not feel any different and her blood pressure is within normal limits now. She has lost 29 pounds. She goes to [employer] and walks on the treadmill at an incline. She fast and lifts some weights. She quit overeating and cut out eating junk food. She will eat dark chocolate if she craves chocolate. She has some spots on her face and has had it for about a year now. It gets crustier and goes away. She is retired. She watches her grandchildren and is currently david. 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 Review of Systems PHQ Score Initial Depression Screen Score: 0 Physical Exam Vitals & Measurements T: 36.9 ?C(Oral) HR: 84(Peripheral) RR: 16 BP: 124/80 SpO2: 96% HT: 64 in HT: 162.8 cm WT: 115.8 kg WT: 254.76 lb BMI: 43.69 General: alert, no acute distress ENMT: oral mucosa moist, no pharyngeal erythema or exudate Cardiovascular: regular rate and rhythm, normal peripheral perfusion Respiratory: Lungs CTA, respirations non labored Extremities: no deformity, no trauma Neurological: oriented x 4, LOC appropriate for age, CN II-XII intact, motor strength equal & normal bilaterally, speech normal Skin: Raised papular raised macular rash without any hyperpigmentation but is excoriated. There is one flat area of hyperpigmentation on the patient's left cheek. Flat by the left ear raised underneath the right eye raised by the left ear. The one underneath the eye is flesh colored and the one by the right ear is flesh colored as well. Assessment/Plan 1. Acute gangrenous cholecystitis (K81.0: Acute cholecystitis) This is resolved status post cholecystectomy. We will continue to monitor and discussed concerns for possible diarrhea later in the future. Patient will give us a call if there are any issues. 2. Essential hypertension (I10: Essential (primary) hypertension) Patient is at goal without any medication at this time. We will continue to monitor. We will see the patient back in 3 months. 3. Asthma (J45.909: Unspecified asthma, uncomplicated) No issues today. Not taking any medication for it. 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 This was 8 to 9 years ago, and we will just put it in remote history. 5. Cholelithiasis (K80.20: Calculus of gallbladder without cholecystitis without obstruction) Again, the patient had a cholecystectomy and was doing well after. 6. Migraines (G43.909: Migraine, unspecified, not intractable, without status migrainosus) At this time, we will monitor as the patient has not had migraines in a long time. 7. BMI 40.0-44.9, adult (Z68.41: Body mass index [BMI] 40.0-44.9, adult) BMI education given. 8. Class 3 obesity (E66.01: Morbid (severe) obesity due to excess calories) As above. 9. Keratosis (L57.0: Actinic keratosis) We will send her to dermatology for a full skin check. Portions of this record may have been created with voice recognition artificial intelligence software, specifically [employer], [employer] and or [employer] online [employer]. Substitutions may have occurred due to the inherent limitations of voice recognition and artificial intelligence software. ATTESTATION: Documentation services were performed after patient or guardian consented to allow [employer] to record this visit. BERNARD bilingual customer service specialist and provider reviewed before signing. BERNARD: Parvin Simmons Follow-up No qualifying data available Problem List/Past Medical History Ongoing Acute gangrenous cholecystitis Asthma Cast's palsy Cholelithiasis Essential hypertension Hair loss Keratosis Migraines Historical No qualifying data Procedure/Surgical History Cholecystectomy (12/19/2022), Bunionectomy, Cardiac catheter, Endometrial ablation, Hysteroscopy. Medications No active medications Allergies No Known Allergies No Known Medication Allergies Social Hi (more content not included)... Normal [facility] Comment on above: Result Comment: Elec tronically Signed By: Jesus Soares MD\.br\Date and Time Signed: 12/31/22 17:48 EDT\.br\Electronically Co-Signed By: Parvin Simmons\.br\Date and Time Co-Signed: 12/31/22 16:41 EDT Facesheeton 12-26-2022 Facesheet [id number]# 1.00CD:127 Normal [facility] Pathology Noteon 12-26-2022 Pathology Note [id number] .00CD:127 Normal [facility] Ambulatory Visit Summaryon 0 12-25-2022 Ambulatory Visit Summary LYNETTE PRADO :1960 Visit Date:12/25/2022 Ambulatory Visit Instructions Your Care Team Attending Physician - MALKA TRIMBLE, Loretta Michelle Primary Care Physician - Jesus Soares MD Procedures Performed Cholecystectomy (12/19/2022), Bunionectomy, Cardiac catheter, Endometrial ablation, Hysteroscopy. What to do next Scheduled Follow-Up Appointments Saturday 1:40 PM EDT With: Jesus Soares MD Where: [facility] Normal [facility] General Surgery Office/Clini c Noteon 12-25-2022 General Surgery Office/Clinic Note HPI Staff 6 day post operative follow up post lap cholecystectomy completed while in-patient at [facility]. Denies pain or discomfort. No use of pain medication. Denies bleeding or drainage. Previously reported adhered bandage was able to be removed today. Bowels moving well. History of Present Illness 6 days s/p LS cholecystectomy for gangrenous acute cholecystitis with cholelithiasis; doing well; no pain meds; no drainage from incisions; normal bms. Review of Systems PHQ Score Initial Depression Screen Score: 0 ROS - Provider Constitutional: no fever, no sweats, no weight loss. Eyes: no glasses, no blurred vision, no visual loss. ENMT: no dentures, no hoarseness, no swallowing difficulties, no hearing loss, no ear infection(s), no nose bleeds. Cardiovascular: normal blood pressure, no chest pain, regular heartbeat, no heart murmur. Respiratory: no shortness of breath, no cough, no asthma, no wheezing. Gastrointestinal: no nausea, no vomiting, no diarrhea, no constipation, no blood in stool, no change in bowel habits, no abdominal pain, no hepatitis. Genitourinary: no kidney stones, no urine infection, no dysuria. Musculoskeletal: no pain, no weakness. Skin: no changing moles, no rash, no skin lumps. Neurologic: no seizures, no epilepsy, no headache. Psychiatric: no emotional or psychiatric problem. Heme/Lymph: no bleeding problems, no anemia, no blood clots, no transfusions. Allergy/Immunologic: no swollen lymph nodes/glands, no IV drug abuse. Other: Additional ROS info: Except as noted in the above Review of Systems and in the History of Present Illness, all other systems have been reviewed and are negative or noncontributory. Physical Exam abd: soft, nontender,nondistende d; incisions without erythema or drainage, minimal ecchymoses. Assessment/Plan 1. Acute gangrenous cholecystitis (K81.0: Acute cholecystitis) doing well; continue no lifting > 10 lbs for 3 weeks; call with problems/questions. Follow-up No qualifying data available Problem List/Past Medical History Ongoing Acute gangrenous cholecystitis Asthma Cast's palsy Cholelithiasis Essential hypertension Hair loss Migraines Historical No qualifying data Procedure/Surgical History Cholecystectomy (12/19/2022), Bunionectomy, Cardiac catheter, Endometrial ablation, Hysteroscopy. Medications No active medications Allergies No Known Allergies No Known Medication Allergies Social History Tobacco Never (less than 100 in lifetime) Tobacco Use:. Never Smokeless Tobacco Use:., 12/25/2022 Family History Hypertension: Father. Immunizations Vaccine Date Status Comments SARS-CoV-2 (COVID-19) mRNA BNT-162b2 vax 04/01/2021 Recorded SARS-CoV-2 (COVID-19) mRNA BNT-162b2 vax 03/11/2021 Recorded 2022-12-19: TPV50 Normal [facility] Comment on above: Result Comment: Elec tronically Signed By: MALKA TRIMBLE, Loretta Sawyer\Date and Time Signed: 12/25/22 16:32 EDT Operative Reporton Operative Report [id number]# 1.00CD:127 Normal [facility] Consultation Noteon 12-20-19 Consultation Note [id number] .00CD:127 Normal [facility] Lab Reportson 12-19-2022 Lab Reports [id number] .00CD:127 Normal [facility] RAD - CT Reporton 07-24-20[address] RAD - CT Report [id number]. 00CD:127 Normal [facility] RAD - MISCon 07-24-2022 RAD - MISC [id number] .00CD:127 Normal [facility] CARDIAC NESTOR ADMITon 023 CK [Catalytic activity/Vol] 135 U/L Normal 26-192 [facility] Comment on above: Performed By: #### L IPA, CMADM, CMP #### [facility] [address] [place] [address] Dr. Spring Vitale CK.MB [Mass/Vol] 2.61 ng/mL Normal <=3.60 [facility] Comment on above: Performed By: #### L IPA, CMADM, CMP #### [facility] [address] [address] [address] Spring Vitale HSTROP 4.3 pg/mL Normal 4.0-51.3 [facility] Comment on above: Result Comment: CUT- OFF POINTS HAVE BEEN ESTABLISHED BASED ON THE FOURTH UNIVERSAL DEFINITIONS OF MYOCARDIAL INFARCTION. THE UPPER REFERENCE LIMIT (URL) OF TROPONIN, DEFINED THE 99TH PERCENTILE OF cTnI DISTRIBUTION IN A REFERENCE POPULATION, HAS BEEN CONFIRMED THE DECISION THRESHOLD FOR [place] DIAGNOSIS. Performed By: #### L IPA, CMADM, CMP #### [facility] [address] [address] [address] Spring Vitale STACY 65 ng/mL Normal 9-82 [facility] Comment on above: Performed By: #### L IPA, CMADM, CMP #### [facility] [address] [place] [address] Dr. Spring Vitale CBC AUTO DIFFon 07-12-2022 BASO # 0.0 103/ul Normal 0.0-0.1 [facility] Comment on above: Performed By: #### C BC #### [facility] [address] [place] [address] Dr. Spring Vitale Basophils/100 WBC (Bld) 0.4 % Normal 0.2-2.0 [facility] Comment on above: Performed By: #### C BC #### [facility] [address] [place] [address] Dr. Spring Vitale EO # 0.1 103/ul Normal 0.0-0.7 [facility] Comment on above: Performed By: #### C BC #### [facility] [address] [place] [address] Dr. Spring Vitale Eosinophils/100 WBC (Bld) 0.5 % Critically low 0.9-7.0 [facility] Comment on above: Performed By: #### C BC #### [facility] [address] [place] [address] Dr. Spring Vitale Erythrocyte distribution width (RBC) [Ratio] 13.6 % Normal 11.0-15.0 [facility] Comment on above: Performed By: #### C BC #### [facility] [address] [place] [address] Dr. Spring Vitale Hematocrit (Bld) [Volume fraction] 40.1 % Normal 36.0-48.0 [facility] Comment on above: Performed By: #### C BC #### [facility] [address] [place] [address] Dr. Spring Vitale Hemoglobin (Bld) [Mass/Vol] 13.1 g/dL Normal 12.0-16.0 [facility] Comment on above: Performed By: #### C BC #### [facility] [address] [place] [address] Dr. Spring Vitale IG # 0.03 10e3/ul Normal 0.00-0.03 [facility] Comment on above: Performed By: #### C BC #### [facility] [address] [place] [address] Dr. Spring Vitale IG % 0.3 % Normal 0.0-0.5 [facility] Comment on above: Performed By: #### C BC #### [facility] [address] [place] [address] Dr. Spring Vitale LYMPH # 1.1 103/ul Critically low 1.2-3.8 [facility] Comment on above: Performed By: #### C BC #### [facility] [address] [place] [address] Dr. Spring Vitale Lymphocytes/100 WBC (Bld) 10.6 % Critically low 20.5-60.0 [facility] Comment on above: Performed By: #### C BC #### [facility] [address] [place] [address] Dr. Spring Vitale MANUAL DIFF REQ NO Normal [facility] Comment on above: Performed By: #### C BC #### [facility] [address] [place] [address] Dr. Spring Vitale MCH (RBC) [Entitic mass] 29.6 pg Normal 26.7-34.0 [facility] Comment on above: Performed By: #### C BC #### [facility] [address] [place] [address] Dr. Spring Vitale MCHC (RBC) [Mass/Vol] 32.7 g/dL Normal 29.9-35.2 [facility] Comment on above: Performed By: #### C BC #### [facility] [address] [place] [address] Dr. Spring Vitale MCV (RBC) [Entitic vol] 90.7 fL Normal 81.0-99.0 [facility] Comment on above: Performed By: #### C BC #### [facility] [address] [place] [address] Dr. Spring Vitale MONO # 0.6 103/ul Normal 0.3-0.8 [facility] Comment on above: Performed By: #### C BC #### [facility] [address] [place] [address] Dr. Spring Vitale Monocytes/100 WBC (Bld) 5.5 % Normal 1.7-12.0 [facility] Comment on above: Performed By: #### C BC #### [facility] [address] [place] [address] Dr. Spring Vitale NEUT # 8.3 103/ul Critically high 1.4-6.5 [facility] Comment on above: Performed By: #### C BC #### [facility] [address] [place] [address] Dr. Spring Vitale Neutrophils/100 WBC (Bld) 82.7 % Critically high 43.0-75.0 [facility] Comment on above: Performed By: #### C BC #### [facility] [address] [place] [address] Dr. Spring Vitale Platelet mean volume (Bld) [Entitic vol] 10.2 fL Normal 9.5-13.5 [facility] Comment on above: Performed By: #### C BC #### [facility] [address] [place] [address] Dr. Spring Vitale PLT 255 103/ul Normal 150-450 [facility] Comment on above: Performed By: #### C BC #### [facility] [address] [place] [address] Dr. Spring Vitale RBC 4.42 106/ul Normal 4.20-5.40 [facility] Comment on above: Performed By: #### C BC #### [facility] [address] [place] [address] Dr. Spring Vitale WBC 10.0 103/ul Normal 4.0-11.0 [facility] Comment on above: Performed By: #### C BC #### [facility] [address] [place] [address] Dr. Spring Vitale CTA CHEST WO W CONon 023 CTA CHEST WO W CON EXAMINATION: CTA CHEST WO W CON, 07/11/2022 11:47 PM EST HISTORY: CHEST PAIN, UNSPECIFIED COMPARISON: None. TECHNIQUE: CT angiography of the chest was performed with IV contrast. MIP (maximum intensity projection) images or 3D post processing was performed. CT dose reduction technique was used, including Automated Exposure Control. FINDINGS: PULMONARY ARTERIES: There is good opacification of the pulmonary vasculature. There is some limitation by motion. No abnormal vascular cutoffs or filling defects seen to suggest the presence of pulmonary emboli. Pulmonary trunk measures 2.9 CM. AORTA: Thoracic aorta is normal in course and caliber. Bovine arch configuration. Minimal atherosclerotic calcifications. MEDIASTINUM: Heart is upper normal in size. Thyroid is grossly unremarkable. Trachea and central airways are patent. No visible mediastinal or hilar lymphadenopathy. PLEURAL CAVITY: No pneumothorax. No pleural effusion. LUNGS: Dependent opacities in the lungs most suggestive of atelectasis. CHEST WALL/AXILLA: No axillary lymphadenopathy VISUALIZED UPPER ABDOMEN: No acute findings. Mildly thickened adrenals may suggest slight hyperplasia. BONES: No acute abnormality. Mild chronic degenerative changes of the spine. IMPRESSION: No evidence of pulmonary embolus or aortic dissection. Mild bibasilar atelectasis. No focal consolidation is seen. Electronically authenticated by: LORETTA ESPINOSA Date: 2022-07-12 01:28 Normal [facility] D-DIMERon 07-12-2022 D-DIMER 1.09 mg/L FEU Critically high <=0.59 [facility] Comment on above: Performed By: #### D DIM #### [facility] [address] [address] [address] Spring Vitale D-DIMER COMMENTS SEE BELOW Normal [facility] Comment on above: Result Comment: Incr eases in D-Dimer concentration observed with thromboembolic events can be variable due to localization, size, and age of the thrombus. Therefore, a thromboembolic event cannot be diagnosed with certainty on the basis of the reference range. D-Dimers may also be elevated for a variety of disorders including: advanced age, , coronary disease, cancer, liver disease, infection, inflammation, hematoma, DIC, trauma, post-surgery, diabetes, thrombolytic or anticoagulant therapy, stress, and generalized hospitalization. Performed By: #### D DIM #### [facility] [address] [address] [address] Spring Vitale LIPASEon 07-12-2022 Lipase [Catalytic activity/Vol] 90.0 U/L Normal 73.0-393.0 [facility] Comment on above: Performed By: #### L IPA, CMADM, CMP #### [facility] [address] [address] [address] Spring Vitale PROF 14(COMP METB)on 023 Albumin [Mass/Vol] 3.6 g/dL Normal 3.4-5.0 [facility] Comment on above: Performed By: #### L IPA, CMADM, CMP #### [facility] [address] [address] [address] Spring Vitale Albumin/Globulin [Mass ratio] 0.9 {ratio} Normal [facility] Comment on above: Performed By: #### L IPA, CMADM, CMP #### [facility] [address] [address] [address] Spring Vitale ALP [Catalytic activity/Vol] 130 U/L Critically high 46-116 [facility] Comment on above: Performed By: #### L IPA, CMADM, CMP #### [facility] [address] [address] [address] Spring Vitale ALT [Catalytic activity/Vol] 133 U/L Critically high 14-59 [facility] Comment on above: Performed By: #### L IPA, CMADM, CMP #### [facility] [address] [address] [address] Spring Vitale Anion gap [Moles/Vol] 10.7 mmol/L Normal [facility] Comment on above: Performed By: #### L IPA, CMADM, CMP #### [facility] [address] [address] [address] Spring Vitale AST [Catalytic activity/Vol] 179 U/L Critically high 15-37 [facility] Comment on above: Performed By: #### L IPA, CMADM, CMP #### [facility] [address] [address] [address] Spring Vitale Bilirubin [Mass/Vol] 0.6 mg/dL Normal 0.2-1.0 [facility] Comment on above: Performed By: #### L IPA, CMADM, CMP #### [facility] [address] [address] [address] Spring Vitale Calcium [Mass/Vol] 9.2 mg/dL Normal 8.5-10.1 [facility] Comment on above: Performed By: #### L IPA, CMADM, CMP #### [facility] [address] [address] [address] Spring Vitale Chloride [Moles/Vol] 102 mmol/L Normal 98-107 [facility] Comment on above: Performed By: #### L IPA, CMADM, CMP #### [facility] [address] [place] [address] Dr. Spring Vitale CO2 [Moles/Vol] 28.5 mmol/L Normal 21.0-32.0 [facility] Comment on above: Performed By: #### L IPA, CMADM, CMP #### [facility] [address] [place] [address] Dr. Spring Vitale Creatinine [Mass/Vol] 0.88 mg/dL Normal 0.55-1.02 [facility] Comment on above: Performed By: #### L IPA, CMADM, CMP #### [facility] [address] [place] [address] Dr. Spring Vitale EGFR-AF MAURITANIAN >60 Normal >=60 [facility] Comment on above: Performed By: #### L IPA, CMADM, CMP #### [facility] [address] [place] [address] Dr. Spring Vitale EGFR-NON AF MAURITANIAN >60 Normal >=60 [facility] Comment on above: Performed By: #### L IPA, CMADM, CMP #### [facility] [address] [place] [address] Dr. Spring Vitale Globulin (S) [Mass/Vol] 4.0 g/dL Normal [facility] Comment on above: Performed By: #### L IPA, CMADM, CMP #### [facility] [address] [place] [address] Dr. Spring Vitale Glucose [Mass/Vol] 159 mg/dL Critically high 74-106 [facility] Comment on above: Performed By: #### L IPA, CMADM, CMP #### [facility] [address] [address] [address] Spring Vitale Potassium [Moles/Vol] 4.2 mmol/L Normal 3.5-5.1 [facility] Comment on above: Performed By: #### L IPA, CMADM, CMP #### [facility] [address] [address] [address] Spring Vitale Protein [Mass/Vol] 7.6 g/dL Normal 6.4-8.2 [facility] Comment on above: Performed By: #### L IPA, CMADM, CMP #### [facility] [address] [place] [address] Dr. Spring Vitale Sodium [Moles/Vol] 137 mmol/L Normal 136-145 [facility] Comment on above: Performed By: #### L IPA, CMADM, CMP #### [facility] [address] [address] [address] Spring Vitale Urea nitrogen [Mass/Vol] 23.0 mg/dL Critically high 7.0-18.0 [facility] Comment on above: Performed By: #### L IPA, CMADM, CMP #### [facility] [address] [address] [address] Spring Vitale Urea nitrogen/Creatinine [Mass ratio] 26.1 mg/mg Normal [facility] Comment on above: Performed By: #### L IPA, CMADM, CMP #### [facility] [address] [address] [address] Spring Vitale TROPONIN, HIGH SENSITIVITYon 07-12-2022 HSTROP 4.0 pg/mL Normal 4.0-51.3 [facility] Comment on above: Result Comment: CUT- OFF POINTS HAVE BEEN ESTABLISHED BASED ON THE FOURTH UNIVERSAL DEFINITIONS OF MYOCARDIAL INFARCTION. THE UPPER REFERENCE LIMIT (URL) OF TROPONIN, DEFINED THE 99TH PERCENTILE OF cTnI DISTRIBUTION IN A REFERENCE POPULATION, HAS BEEN CONFIRMED THE DECISION THRESHOLD FOR [place] DIAGNOSIS. Performed By: #### H STROPN #### [facility] [address] [address] [address] Spring Vitale XR CHEST 1 Von 07-12-2022 XR CHEST 1 V EXAM: XR CHEST 1 V HISTORY: CHEST PAIN, UNSPECIFIED COMPARISON: 07/13/2021 TECHNIQUE: Chest single view. FINDINGS: Lines/tubes/devices: EKG leads overlie the chest. No indwelling lines are seen. Cardiomediastinum: Cardiac silhouette appears upper normal in size. Unremarkable mediastinal silhouette. Vasculature: No increased pulmonary vasculature. Lungs/pleura: Lung volumes are diminished, with crowding of lung markings and minor bibasilar opacities likely on the basis of atelectasis. Otherwise no definite confluent consolidative process, sizable effusion, or pneumothorax demonstrated. Bones/soft tissues: Bony thorax appears grossly intact as seen. Mild degenerative change of the shoulders. Regional soft tissues appear unremarkable. IMPRESSION: Low lung volume exam with hypoventilatory changes. Otherwise no acute finding. Electronically authenticated by: LORETTA ESPINOSA Date: 2022-07-11 23:42 Normal [facility] Vital Signs Date Time Vital Sign Value Performing Clinician Faci lity 04-23-2023 14:04-0500 Blood Pressure Location Loretta ACE [facility] 04-23-2023 14:04-0500 Diastolic blood pressure 90 mm[Hg] Loretta ACE [facility] 04-23-2023 14:04-0500 Heart rate 76 /min Loretta ACE [facility] 04-23-2023 14:04-0500 Respiratory rate 16 /min Loretta ACE [facility] 04-23-2023 14:04-0500 Systolic blood pressure 128 mm[Hg] Loretta ACE [facility] Encounters Encounter Date Encounter Type Care Provider Facility Start: 06-18-2023 ambulatory Jesus Soares Facility :[facility] Start: 05-07-2023 ambulatory Jesus Soares Facility :[facility] Start: 04-23-2023 End: 04-24-2023 ambulatory Jesus Soares Facility: [facility] Start: 04-23-2023 End: 04-23-2023 Patient encounter procedure Loretta Michelle MALKA [facility] Start: 04-01-2023 End: 04-02-2023 ambulatory Jesus Soares Facility:[facility] Start: 04-01-2023 End: 04-01-2023 Lab Drop off Jesus Soares [facility] Start: 12-31-2022 End: 01-01-2023 ambulatory Jesus Soares Facility:[facility] [place] Start: 12-25-2022 End: 12-26-2022 ambulatory Loretta ACE Facility: [place] Start: 12-25-2022 End: 12-25-2022 Patient encounter procedure Loretta Viviana MALKA General [facility] Nill/Said [place] Start: 12-19-2022 ambulatory Jesus Soares Facility:[facility] [place] Start: 12-17-2022 End: 12-20-2022 ambulatory Loretta ACE Facility:CD:[id number] Start: 07-21-2022 ambulatory Jesus Soares Facility:[facility] [place] Start: 07-12-2022 End: 07-12-2022 ambulatory BLAIRE HA . Facility: Procedures Date Procedure Procedure Detail Performing Clinician Start: 12-19-2022 Cholecystectomy Loretta BAUTISTAL Cardiac catheter (ph ysical object) Loretta NILL Comment on above: 03/08 normal Endometrial ablation Loretta NILL Excision of bunion Loretta BRADEN Hysteroscopy Loretta NILL Comment on above: D&C also Immunizations Immunization Date Immunization Notes Care Provider Fa cility 04-01-2021 SARS-CoV-2 (COVID-19 ) mRNA BNT-162b2 vax Loretta NILL [facility] 03-11-2021 SARS-CoV-2 (COVID-19 ) mRNA BNT-162b2 rosalina ACE [facility] Comment on above: Result Comment: 2022: TPV50 03-05-2018 influenza virus vaccine, unspecified formulation Jesus Soares [facility] NEGATED: Highlighted row has not occurred!04-01-2023 influenza virus vaccine, unspecified formulation Jesus Soares [facility] Comment on above: Result Comment: very sick in past with flu shot will not take them Payers Date Payer Category Payer Unknown [id number] 1960 Unknown [id number] 2.16.84 [id number] 1960 Unknown [id number] 2.16.8 [id number] 1960 Unknown [id number] 2.16.8 [id number] 1960 Unknown [id number] 2.16.8 [id number] 1962 Unknown [id number] 2.16.8 [id number] 1962 Unknown [id number] 2.16.8 [id number] 1962 Unknown [id number] 2.16.8 [id number] 1962 Unknown [id number] 2.16.8 [id number] 1962 Unknown [id number] 2.16.8 [id number] 1959 Unknown [id number] Social History Date Type Detail Facility Start: 12-25-2022 End: 04-23-2023 Tobacco smoking status Never smoked tobacco (finding) [facility] Tobacco smoking status Never Gener al [facility] Sex Assigned At Female [facility] Functional Status Date Assessment Result Facility 04-23-2023 Functional Status N/A [facility] 12-25-2022 Functional Status N/A [facility] Clinical Note 04-23-2023 Note Date & Type Note Facility 04-23-2023 Note Chief Complaint consultation for screening colonoscopy HPI Staff 62 year old female presents on consultation from Dr. Soares for screening colonoscopy. Denies abdominal or rectal pain. No rectal bleeding or change in bowel habits. Denies nausea or vomiting. No unexplained weight loss. Never had colonoscopy in the past. No known family history of colon cancer. History of Present Illness 62 yo female with h/o htn, asthma, migraines, referred for colorectal screening; denies change in bms or blood in stools; no abdominal complaints; denies asa or NSAID use, no SBE prophylaxis; abdominal operations significant for cholecystectomy, no previous colonoscopy; no fmhx of GI malignancy or IBD; no tobacco use. Review of Systems PHQ Score Initial Depression Screen Score: 0 SCORE ROS - Provider Constitutional: no fever, no sweats, no weight loss. Eyes: no glasses, no blurred vision, no visual loss. ENMT: no dentures, no hoarseness, no swallowing difficulties, no hearing loss, no ear infection(s), no nose bleeds. Cardiovascular: normal blood pressure, no chest pain, regular heartbeat, no heart murmur. Respiratory: no shortness of breath, no cough, no asthma, no wheezing. Gastrointestinal: no nausea, no vomiting, no diarrhea, no constipation, no blood in stool, no change in bowel habits, no abdominal pain, no hepatitis. Genitourinary: no kidney stones, no urine infection, no dysuria. Musculoskeletal: no pain, no weakness. Skin: no changing moles, no rash, no skin lumps. Neurologic: no seizures, no epilepsy, no headache. Psychiatric: no emotional or psychiatric problem. Heme/Lymph: no bleeding problems, no anemia, no blood clots, no transfusions. Allergy/Immunologic: no swollen lymph nodes/glands, no IV drug abuse. Other: Additional ROS info: Except as noted in the above Review of Systems and in the History of Present Illness, all other systems have been reviewed and are negative or noncontributory. Physical Exam Vitals & Measurements HR: 76(Peripheral) RR: 16 BP: 128/90 HT: 64 in HT: 162.8 cm WT: 114 kg WT: 250.8 lb BMI: 43.01 HEENT: normal conjunctiva, sclera clear, no scleral icterus, EOM intact, PERRLA, oral mucosa moist without lesions. Neck: trachea midline, no mass, symmetric, no thyromegaly or nodules, no adenopathy Respiratory: lungs CTA, respirations non labored. Cardiovascular: regular rate and rhythm, no murmur, no pedal edema or varicosities. Gastrointestinal: obese, soft, non distended, no tenderness, no masses, no palpable hernias, diastasis recti no, no hepatosplenomegaly; normal bs Lymphatic: no cervical adenopathy, no supraclavicular adenopathy. Musculoskeletal: normal gait, digits and nails without infection, nodes, cyanosis, clubbing. Skin: no rashes, no lesions, no ulcers, no subcutaneous nodules, induration. Psychiatric/Neuro: oriented to time, place, person, judgement normal, affect appropriate for age, insight intact, no focal deficits. Tests: , review of old records completed , Discussed surgical options, risks, and possible complications with patient. Assessment/Plan 1. Screening for malignant neoplasm of colon (Z12.11: Encounter for screening for malignant neoplasm of colon) plan colonoscopy under anesthesia, informed consent obtained. Follow-up No qualifying data available Problem List/Past Medical History Ongoing Acute gangrenous cholecystitis Asthma Cast's palsy BMI 40.0-44.9, adult Breast cancer screening Cholelithiasis Colon cancer screening Emotional sensitivity Essential hypertension Hair loss Influenza vaccination declined Keratosis Migraines Morbid obesity Physical exam Screening for malignant neoplasm of colon Historical No qualifying data Procedure/Surgical History Cholecystectomy (12/19/2022), Bunionectomy, Cardiac catheter, Endometrial ablation, Hysteroscopy. Medications Wellbutrin XL 150 mg/24 hours Tab-ER, 150 mg= 1 tab(s), Oral, q24hr Allergies No Known Allergies No Known Medication Allergies Social History Alcohol Current, 1-2 times per week, 04/23/2023 Substance Abuse - Denies Substance Abuse, 04/23/2023 Tobacco Never (less than 100 in lifetime) Tobacco Use:. Never Smokeless Tobacco Use:., 04/23/2023 Family History Hypertension: Father. Immunizations Vaccine Date Status Comments influenza virus vaccine, inactivated - Not Given Patient Refuses very sick in past with flu shot will not take them SARS-CoV-2 (COVID-19) mRNA BNT-162b2 vax 04/01/2021 Recorded SARS-CoV-2 (COVID-19) mRNA BNT-162b2 vax 03/11/2021 Recorded 2022-12-19: TPV50 influenza virus vaccine, inactivated 03/05/2018 Recorded [facility] Comment on above: Result Comment: Elec tronically Signed By: MALKA TRIMBLE, Loretta Sawyer\Date and Time Signed: 04/23/23 15:25 EST Evaluation + Plan note Note Date & Type Note Facility Evaluation + Plan note Future Appointments Appointment Date:12/31/2022 01:40:00 PM Scheduled Provider:Jesus Soares MD Location:[facility] Appointment Type: New Patient - Adult General [facility] [place] Evaluation + Plan note Radiology Note Date & Type Note Facility Evaluation + Plan note Future Appointments Appointment Date:05/07/2023 07:00:00 AM Scheduled Provider:Jesus Soares MD Location:[facility] Appointment Type: Open Future Scheduled TestsMA Mamm Screen w/CAD if perf and 3D Librado 04/01/23 [facility] Evaluation + Plan note Radiology Note Date & Type Note Facility Evaluation + Plan note Future Appointments Appointment Date:05/07/2023 07:00:00 AM Scheduled Provider:Jesus Soares MD Location:[facility] Appointment Type: Open Future Scheduled TestsMA Mamm Screen w/CAD if perf and 3D Librado 04/01/23 [facility] course Narrative Note Date & Type Note Facility Hospital course Narrative No data available for this section [facility] Discharge instructions Note Date & Type Note Facility Hospital Discharge instructions No data available for this section [facility] note Note Date & Type Note Facility Progress note No data available for this section [facility] Purpose Family History No Family History Records Found No data available for this section No data available for this section No Family History Records Found Advance Directives No Advanced Directives Records FoundNo Advanced Directives Records Found Additional Source Comments INFORMATION SOURCE (unrecogn ized section and content) DATE CREATED AUTHOR 08/09/2022 [facility] DATE CREATED AUTHOR AUTHOR'S ORGANIZ ATION 05/07/2023 [facility] Patient Care team informatio n (unrecognized section and content) Personnel Name: Jesus Soares MD Address: Address: [facility] [address] Personnel Name: Jesus Soares MD Address: Address: [facility] [place] Personnel Name: Jesus Soares MD Address: Address: [facility] [address] FOR RECORDS PERTAINING TO PATIENTS WHO ARE OR HAVE BEEN ENROLLED IN A CHEMICAL DEPENDENCY/SUBSTANCEABUSE PROGRAM, SOME INFORMATION MAY BE OMITTED. This clinical summary was aggregated from multiple sources. Caution should be exercised in using it in the provision of clinical care. This summary normalizes information from multiple sources, and as a consequence, information in this document may materially change the coding, format and clinical context of patient data. In addition, data may be omitted in some cases. CLINICAL DECISIONS SHOULD BE BASED ON THE PRIMARY CLINICAL RECORDS. [facility] [employer] provides no warranty or guarantee of the accuracy or completeness of information in this document.
[2023-05-08 07:55] VITALS: BP 146/83; PULSE 69; RESP 18; TEMP 36.2; O2SAT 96; BMI 40.5
[2023-05-08] MEDS: LACTATED RINGER'S SOLUTION 1,000 ML 50 ML IV (08:20)
[2023-05-08 10:00] VITALS: BP 107/66; PULSE 71; RESP 16; TEMP 36.4; O2SAT 99
[2023-05-08 10:15] VITALS: BP 104/82; PULSE 62; RESP 16; O2SAT 96
[2023-05-08 10:30] VITALS: BP 113/68; PULSE 68; RESP 18; O2SAT 96
== END 2023-05-08 10:30 | disposition home or self-care (01) ==
PROVIDERS: Visit Provider Surgery
PROC: (CPT 811; principal; 2023-05-08 08:50)
DX: Z12.11 Encounter for screening for malignant neoplasm of colon (principal); K57.30 Diverticulosis of large intestine without perforation or abscess without bleeding; J45.909 Unspecified asthma, uncomplicated; I10 Essential (primary) hypertension; E66.01 Morbid (severe) obesity due to excess calories; Z90.49 Acquired absence of other specified parts of digestive tract; Z68.41 Body mass index [BMI] 40.0-44.9, adult
CPT/HCPCS: 45378; J2704

== ENCOUNTER 2024-05-26 17:19 | Emergency (ER) | payer OTHER, SELFPAY ==
[2024-05-26 17:31] VITALS: BP 130/92; PULSE 79; TEMP 36.7; O2SAT 98; BMI 36.6
--- OUTSIDE RECORDS SUMMARY | 2024-05-26 17:33 | XMS_ITS | CCD ---
Author Organization [facility] Care Team Providers Care General Counselor Name Role Phone BLAIRE DRISCOLL Attending LORETTA Bui Consulting Unavailable BRANDON ., DR KIMBERLYN Stone Primary Care Unavailable BLAIRE DRISCOLL Admitting BLAIRE Harry Consulting Jesus Bourne Primary Care Physician Jesus Soares Attending Unavailable Jesus Soares Attending Unavailable Jesus Soares Attending Unavailable Jesus Soares Attending Unavailable Jesus Soares Attending Unavailable Jesus Soares Attending Unavailable Jesus Soares Attending Unavailable Allergies Allergy Classification Reported Allergen(s) Allergy Type Date of Onset Reaction(s) Facility (1 source) buPROPion; Translations: [Wellbutrin] Drug Allergy [facility] Repository (1 source) No Known Medication Allergies; Translations: [No Known Medication Allergies] Propensity to adverse reactions (disorder) [facility] Repository Medications Current Medications Medication Drug Class(es) Dates Sig (Normalized) Sig (Original) 24 hr buPROPion hydrochloride 150 mg extended release oral tablet (2 sources) Aminoketone Start: 04-01-2023 take 1 tablet by mouth every twenty-four hours Wellbutrin XL 150 mg/24 hours Tab-ER 150 mg = 1 tab(s), Oral, q24hr, # 90 tab(s), Refills(s) 0, Pharmacy: [facility]/pharmacy #[id number], 162.8, cm, 04/01/23 7:39:00 EST, Height/Length [...] Reference Range Facility Ambulatory Visit Summaryon 0 05-12-2024 Ambulatory Visit Summary Ambulatory Visit Summary LYNETTE PRADO :1960 Visit Date:05/12/2024 Ambulatory Visit Instructions Your Diagnosis Excessive dietary caloric intake BMI 38.0-38.9,adult Obesity (BMI 30-39.9) Nonsmoker Emotional sensitivity Your Care Team Attending Physician - Jesus Soares MD Primary Care Physician - Jesus Soares MD This Is Your Medications List buPROPion (Wellbutrin XL 150 mg/24 hours Tab-ER) semaglutide (semaglutide 1.7 mg/0.75 mL (1.7 mg dose) subcutaneous solution) Procedures Performed Cholecystectomy (12/19/2022), Bunionectomy, Cardiac catheter, Endometrial ablation, Hysteroscopy. Discharge Vitals Temperature (Tympanic) 36.3 ???C Heart Rate (Peripheral) 83 Respiratory Rate 18 Blood Pressure 124/76 Height 162.8 cm Height 64 in Weight 102.7 kg Weight 226.414 lb BMI 38.75 What to do next Scheduled Follow-Up Appointments Saturday 8:00 AM EST With: Where: [address] [phone] 2024 7:00 AM EST With: Rodger TRIMBLE, Jesus Norman Where: [address] [id number]- Medications What How Much When Why Instructions New semaglutide (semaglutide 1.7 mg/ 0.75 mL (1.7 mg dose) subcutaneous solution) 1.7 Milligram Subcutaneous Every week Pickup at [facility] Unchanged buPROPion (Wellbutrin XL 150 mg/ 24 hours Tab-ER) 1 Tablets By Mouth Every 24 hours Physical exam Breast cancer screening Colon cancer screening Influenza vaccination declined BMI 40.0-44.9, adult Class 3 obesity Nonsmoker Emotional sensitivity Pickup at [facility] Pharmacy Information [facility]: [address] [place], [place] [id number] [phone] Allergies No Known Allergies No Known Medication Allergies Problems Ongoing - Any problem that you are currently receiving treatment for. Asthma BMI 38.0-38.9,adult Cholelithiasis Colon cancer screening Diverticulosis of colon Emotional sensitivity Excessive dietary caloric intake Hair loss Influenza vaccination declined Keratosis Migraines Nonsmoker Obesity (BMI 30-39.9) Patient Survey You may receive a survey via text or e-mail asking about your office visit. Please share your experience with us by completing your survey. We appreciate your feedback and thank you for choosing us for your care. Normal [facility] Family Medicine Office/Clini c Noteon 05-12-2024 Family Medicine Office/Clinic Note Family Medicine Office/Clinic Note Chief Complaint Weight Management HPI Staff 3m weight management Semaglutide 1.2mg wkly Sleeping well:Yes, 6-8 hours Chest pain:No Tremors:No Headaches:No Heart fluttering:No Blurred Vision:No Starting Weight:258.5 Weight last visit:224 Weight this visit: 226.41 Would like to discuss increasing dose. History of Present Illness Here for follow up. Weight is stable over rosa. No other issues. Mood is good. Review of Systems PHQ Score Initial Depression Screen Score: 0 SCORE Physical Exam Vitals & Measurements T: 36.3 ???C(Tympanic) HR: 83(Peripheral) RR: 18 BP: 124/76 SpO2: 99% HT: 64 in HT: 162.8 cm WT: 102.7 kg WT: 226.414 lb BMI: 38.75 General: alert, no acute distress ENMT: oral mucosa moist, Cardiovascular: regular rate and rhythm, normal peripheral perfusion Respiratory: Lungs CTA, respirations non labored Extremities: no deformity, no trauma Neurological: oriented x 4, LOC appropriate for age, CN II-XII intact, motor strength equal & normal bilaterally, speech normal Abdomen: Soft, Nontender, Non-distended, + BS Assessment/Plan 1. Excessive dietary caloric intake (R63.2: Polyphagia) Increase diet and exercise. Increase meds. Follow up PRN. 2. BMI 38.0-38.9,adult (Z68.38: Body mass index [BMI] 38.0-38.9, adult) BMI education added 3. Obesity (BMI 30-39.9) (E66.9: Obesity, unspecified) Diet and exercise advised 4. Nonsmoker (Z78.9: Other specified health status) Please continue to not smoke. Ordered: buPROPion, 150 mg = 1 tab(s), Oral, q24hr, # 90 tab(s), Refills(s) 1, Pharmacy: [facility], 162.8, cm, 05/12/24 7:12:00 EST, Height/Length Dosing, 102.7, kg, 05/12/24 7:12:00 EST, Weight Dosing 5. Emotional sensitivity (R45.89: Other symptoms and signs involving emotional state) Doing well. Continue wellbutrin. Follow up PRN. Ordered: buPROPion, 150 mg = 1 tab(s), Oral, q24hr, # 90 tab(s), Refills(s) 1, Pharmacy: [facility], 162.8, cm, 05/12/24 7:12:00 EST, Height/Length Dosing, 102.7, kg, 05/12/24 7:12:00 EST, Weight Dosing Orders: semaglutide, 1.7 mg, SubCutaneous, qWeek, # 4 EA, Refills(s) 0, Pharmacy: [facility], 162.8, cm, 05/12/24 7:12:00 EST, Height/Length Dosing, 102.7, kg, 05/12/24 7:12:00 EST, Weight Dosing Follow-up No qualifying data available Problem List/Past Medical History Ongoing Asthma BMI 38.0-38.9,adult Cholelithiasis Colon cancer screening Diverticulosis of colon Emotional sensitivity Excessive dietary caloric intake Hair loss Influenza vaccination declined Keratosis Migraines Nonsmoker Obesity (BMI 30-39.9) Historical No qualifying data Procedure/Surgical History Cholecystectomy (12/19/2022), Bunionectomy, Cardiac catheter, Endometrial ablation, Hysteroscopy. Medications semaglutide 1.7 mg/0.75 mL (1.7 mg dose) subcutaneous solution, 1.7 mg, SubCutaneous, qWeek Wellbutrin XL 150 mg/24 hours Tab-ER, 150 mg= 1 tab(s), Oral, q24hr, 1 refills Allergies No Known Allergies No Known Medication Allergies Social History Alcohol Current. Beer. 1-2 times per month., 05/09/2024 Substance Abuse - Denies Substance Abuse, 04/23/2023 Never., 05/09/2024 Tobacco Never (less than 100 in lifetime) Tobacco Use:. Never Smokeless Tobacco Use:. Household tobacco concerns: No. Yes, 05/12/2024 Family History Hypertension: Father. Immunizations Vaccine Date Status Comments influenza virus vaccine, inactivated - Not Given Patient Refuses very sick in past with flu shot will not take them SARS-CoV-2 (COVID-19) mRNA BNT-162b2 vax 04/01/2021 Recorded SARS-CoV-2 (COVID-19) mRNA BNT-162b2 vax 03/11/2021 Recorded 2022-12-19: TPV50 influenza virus vaccine, inactivated 03/05/2018 Recorded Normal [facility] Comment on above: Result Comment: Elec tronically Signed By: Rodger TRIMBLE, Jesus Elderbr\Date and Time Signed: 05/12/24 07:47 EST Ambulatory Visit Summaryon 1 Ambulatory Visit Summary Ambulatory Visit Summary LYNETTE PRADO :1960 Visit Date:02/11/2024 Ambulatory Visit Instructions Your Diagnosis Excessive dietary caloric intake Emotional sensitivity Hair loss Asthma BMI 38.0-38.9,adult Exogenous obesity Nonsmoker Your Care Team Attending Physician - Jesus Soares MD Primary Care Physician - Jesus Soares MD This Is Your Medications List buPROPion (Wellbutrin XL 150 mg/24 hours Tab-ER) Procedures Performed Cholecystectomy (12/19/2022), Bunionectomy, Cardiac catheter, Endometrial ablation, Hysteroscopy. Discharge Vitals Temperature (Temporal Artery) 36.4 ?C Heart Rate (Peripheral) 70 Respiratory Rate 16 Blood Pressure 132/84 Height 162.8 cm Height 64 in Weight 102.2 kg Weight 224.84 lb BMI 38.56 What to do next Scheduled Follow-Up Appointments Saturday 7:00 AM EST With: Jesus Soares MD Where: [facility] Medicine [place] [id number]- Medications What How Much When Why Instructions Unchanged buPROPion (Wellbutrin XL 150 mg/ 24 hours Tab-ER) 1 Tablets By Mouth Every 24 hours Physical exam Breast cancer screening Colon cancer screening Influenza vaccination declined BMI 40.0-44.9, adult Class 3 obesity Nonsmoker Emotional sensitivity Allergies No Known Allergies No Known Medication Allergies Problems Ongoing - Any problem that you are currently receiving treatment for. Asthma BMI 40.0-44.9, adult Cholelithiasis Colon cancer screening Diverticulosis of colon Emotional sensitivity Excessive dietary caloric intake Hair loss Influenza vaccination declined Keratosis Migraines Morbid obesity Patient Survey You may receive a survey via text or e-mail asking about your office visit. Please share your experience with us by completing your survey. We appreciate your feedback and thank you for choosing us for your care. Normal [facility] Family Medicine Office/Clini c Noteon 02-11-2024 Family Medicine Office/Clinic Note Family Medicine Office/Clinic Note HPI Staff Lynette is a 63 year old female presenting for 3 month follow up weight Weight management Sleeping well:Yes, 6-8 hourssome night yes some no Chest pain:No Tremors:No Headaches:No Heart fluttering:No Blurred Vision:No Starting Weight: 258.5 Weight last visit: 229.34 Weight this visit: 224. questions/concerns: semaglutide was refilled yesterday History of Present Illness See staff HPI. Review of Systems PHQ Score Initial Depression Screen Score: 0 SCORE Physical Exam Vitals & Measurements T: 36.4 ?C(Temporal Artery) HR: 70(Peripheral) RR: 16 BP: 132/84 SpO2: 99% HT: 64 in HT: 162.8 cm WT: 102.2 kg WT: 224.84 lb BMI: 38.56 General: alert, no acute distress ENMT: oral mucosa moist, Cardiovascular: regular rate and rhythm, normal peripheral perfusion Respiratory: Lungs CTA, respirations non labored Extremities: no deformity, no trauma Neurological: oriented x 4, LOC appropriate for age, CN II-XII intact, motor strength equal & normal bilaterally, speech normal Abdomen: Soft, Nontender, Non-distended, + BS Assessment/Plan 1. Excessive dietary caloric intake (R63.2: Polyphagia) - Still improving. - Increase physical activity. - Encouraged weight lifting - Cut out sugars 2. Emotional sensitivity (R45.89: Other symptoms and signs involving emotional state) - Stable - Doing really well. Ordered: buPROPion, 150 mg = 1 tab(s), Oral, q24hr, # 90 tab(s), Refills(s) 1, Pharmacy: [facility]/pharmacy #[id number], 162.8, cm, 02/11/24 8:05:00 EDT, Height/Length Dosing, 102.2, kg, 02/11/24 8:05:00 EDT, Weight Dosing 3. Hair loss (L65.9: Nonscarring hair loss, unspecified) - Improved. - No issues at this time. 5. BMI 38.0-38.9,adult (Z68.38: Body mass index [BMI] 38.0-38.9, adult) - BMI education added 6. Exogenous obesity (E66.09: Other obesity due to excess calories) - Diet and exercise advised 7. Nonsmoker (Z78.9: Other specified health status) - Please continue to not smoke Ordered: buPROPion, 150 mg = 1 tab(s), Oral, q24hr, # 90 tab(s), Refills(s) 1, Pharmacy: [facility]/pharmacy #[id number], 162.8, cm, 02/11/24 8:05:00 EDT, Height/Length Dosing, 102.2, kg, 02/11/24 8:05:00 EDT, Weight Dosing Follow-up No qualifying data available Patient Education BMI for Adults Problem List/Past Medical History Ongoing Asthma BMI 40.0-44.9, adult Cholelithiasis Colon cancer screening Diverticulosis of colon Emotional sensitivity Excessive dietary caloric intake Hair loss Influenza vaccination declined Keratosis Migraines Morbid obesity Historical No qualifying data Procedure/Surgical History Cholecystectomy (12/19/2022), Bunionectomy, Cardiac catheter, Endometrial ablation, Hysteroscopy. Medications Wellbutrin XL 150 mg/24 hours Tab-ER, 150 mg= 1 tab(s), Oral, q24hr, 1 refills Allergies No Known Allergies No Known Medication Allergies Social History Alcohol Current, 1-2 times per week, 04/23/2023 Substance Abuse - Denies Substance Abuse, 04/23/2023 Tobacco Never (less than 100 in lifetime) Tobacco Use:. Never Smokeless Tobacco Use:., 02/11/2024 Family History Hypertension: Father. Immunizations Vaccine Date Status Comments influenza virus vaccine, inactivated - Not Given Patient Refuses very sick in past with flu shot will not take them SARS-CoV-2 (COVID-19) mRNA BNT-162b2 vax 04/01/2021 Recorded SARS-CoV-2 (COVID-19) mRNA BNT-162b2 vax 03/11/2021 Recorded 2022-12-19: TPV50 influenza virus vaccine, inactivated 03/05/2018 Recorded Normal [facility] Comment on above: Result Comment: Elec tronically Signed By: Rodger TRIMBLE, Jesus Mcfarland.br\Date and Time Signed: 02/11/24 08:32 EDT Ambulatory Visit Summaryon 0 11-19-2023 Ambulatory Visit Summary Ambulatory Visit Summary LYNETTE PRADO :1960 Visit Date:11/19/2023 Ambulatory Visit Instructions Your Diagnosis Excessive dietary caloric intake BMI 39.0-39.9,adult Class 1 obesity due to excess calories in adult Nonsmoker Your Care Team Attending Physician - Jesus Soares MD Primary Care Physician - Jesus Soares MD This Is Your Medications List buPROPion (Wellbutrin XL 150 mg/24 hours Tab-ER) Procedures Performed Cholecystectomy (12/19/2022), Bunionectomy, Cardiac catheter, Endometrial ablation, Hysteroscopy. Discharge Vitals Temperature (Temporal Artery) 36.7 ?C Heart Rate (Peripheral) 66 Respiratory Rate 16 Blood Pressure 120/82 Height 162.8 cm Height 64 in Weight 104.3 kg Weight 229.46 lb BMI 39.35 What to do next Scheduled Follow-Up Appointments Saturday 7:00 AM EDT With: Jesus Soares MD Where: [facility] [place] Normal [facility] Family Medicine Office/Clini c Noteon 11-19-2023 Family Medicine Office/Clinic Note Family Medicine Office/Clinic Note HPI Staff Lynette is a 63 year old female presenting for 3 month follow up weight Weight management Sleeping well:Yes, 6-8 hourssometimes Chest pain:No Tremors:No Headaches:No Heart fluttering:No Blurred Vision:No Starting Weight: 258.5 lbs Weight last visit: 241.34 lbs Weight this visit: 229.46 questions/concerns: needs the bupropion refilled History of Present Illness - Doing well with weight loss. - NO issues at this time. - Feeling good with the new meds - Continuing to do eat well and exercise appropriately. Review of Systems PHQ Score Initial Depression Screen Score: 0 SCORE Physical Exam Vitals & Measurements T: 36.7 ?C(Temporal Artery) HR: 66(Peripheral) RR: 16 BP: 120/82 SpO2: 98% HT: 64 in HT: 162.8 cm WT: 104.3 kg WT: 229.46 lb BMI: 39.35 General: alert, no acute distress ENMT: oral mucosa moist, Cardiovascular: regular rate and rhythm, normal peripheral perfusion Respiratory: Lungs CTA, respirations non labored Extremities: no deformity, no trauma Neurological: oriented x 4, LOC appropriate for age, CN II-XII intact, motor strength equal & normal bilaterally, speech normal Abdomen: Soft, Nontender, Non-distended, + BS Assessment/Plan 1. Excessive dietary caloric intake (R63.2: Polyphagia) - Pt continues to loose weight. - Improving with Diet and Exercise - Will keep with the same dose of Semaglutide. - NO side affects. 2. BMI 39.0-39.9,adult (Z68.39: Body mass index [BMI] 39.0-39.9, adult) - BMI education added 3. Class 1 obesity due to excess calories in adult (E66.09: Other obesity due to excess calories) - Diet and exercise advised 4. Nonsmoker (Z78.9: Other specified health status) - Please continue to not smoke. Ordered: buPROPion, 150 mg = 1 tab(s), Oral, q24hr, # 90 tab(s), Refills(s) 0, Pharmacy: [facility]/pharmacy #[id number], 162.8, cm, 11/19/23 8:19:00 EDT, Height/Length Dosing, 104.3, kg, 11/19/23 8:19:00 EDT, Weight Dosing 5. Emotional sensitivity (R45.89: Other symptoms and signs involving emotional state) - Doing well with meds - Feels great. - Would like a refill. Ordered: buPROPion, 150 mg = 1 tab(s), Oral, q24hr, # 90 tab(s), Refills(s) 0, Pharmacy: [facility]/pharmacy #[id number], 162.8, cm, 11/19/23 8:19:00 EDT, Height/Length Dosing, 104.3, kg, 11/19/23 8:19:00 EDT, Weight Dosing Follow-up No qualifying data available Patient Education BMI for Adults Problem List/Past Medical History Ongoing Asthma BMI 40.0-44.9, adult Cholelithiasis Colon cancer screening Diverticulosis of colon Emotional sensitivity Excessive dietary caloric intake Hair loss Influenza [...] lifetime) Tobacco Use:. Never Smokeless Tobacco Use:., 11/19/2023 Family History Hypertension: Father. Immunizations Vaccine Date Status Comments influenza virus vaccine, inactivated - Not Given Patient Refuses very sick in past with flu shot will not take them SARS-CoV-2 (COVID-19) mRNA BNT-162b2 vax 04/01/2021 Recorded SARS-CoV-2 (COVID-19) mRNA BNT-162b2 vax 03/11/2021 Recorded 2022-12-19: TPV50 influenza virus vaccine, inactivated 03/05/2018 Recorded [facility] Comment on above: Result Comment: Elec tronically Signed By: Jesus Soares MD\.br\Date and Time Signed: 11/19/23 08:54 EDT Retail - Clinical Noteon Retail - Clinical Note [id number] 5#1.00TIFF [facility] Ambulatory Visit Summaryon 0 08-20-2023 Ambulatory Visit Summary LYNETTE PRADO :1960 Visit Date:08/20/2023 Ambulatory Visit Instructions Your Diagnosis Excessive dietary caloric intake Asthma Morbid obesity BMI 40.0-44.9, adult Emotional sensitivity Your Care Team Attending Physician - Jesus Soares MD Primary Care Physician - Jesus Soares MD This Is Your Medications List buPROPion (Wellbutrin XL 150 mg/24 hours Tab-ER) Procedures Performed Cholecystectomy (12/19/2022), Bunionectomy, Cardiac catheter, Endometrial ablation, Hysteroscopy. Discharge Vitals Temperature (Temporal Artery) 36.4 ?C Heart Rate (Peripheral) 76 Respiratory Rate 16 Blood Pressure 122/82 Height 162.8 cm Height 64 in Weight 109.7 kg Weight 241.34 lb BMI 41.39 What to do next Scheduled Follow-Up Appointments Saturday 8:15 AM EDT With: Jesus Soares MD Where: [facility] [place] Normal [facility] Family Medicine Office/Clini c Noteon 08-20-2023 Family Medicine Office/Clinic Note HPI Staff Lynette is a 63 year old female presenting for 2 month follow up weight Weight management Sleeping well:Yes, 6-8 hoursfluctuates Chest pain:No Tremors:No Headaches:No Heart fluttering:No Blurred Vision:No Weight last visit: 248lbs Weight this visit: 241lbs questions/concerns: none History of Present Illness - Here for follow up. - Improving weight. - NO issues. Review of Systems PHQ Score Initial Depression Screen Score: 0 SCORE Physical Exam Vitals & Measurements T: 36.4 ?C(Temporal Artery) HR: 76(Peripheral) RR: 16 BP: 122/82 SpO2: 99% HT: 64 in HT: 162.8 cm WT: 109.7 kg WT: 241.34 lb BMI: 41.39 General: alert, no acute distress ENMT: oral mucosa moist, Cardiovascular: regular rate and rhythm, normal peripheral perfusion Respiratory: Lungs CTA, respirations non labored Extremities: no deformity, no trauma Neurological: oriented x 4, LOC appropriate for age, CN II-XII intact, motor strength equal & normal bilaterally, speech normal Abdomen: Soft, Nontender, Non-distended, + BS Assessment/Plan 1. Excessive dietary caloric intake (R63.2: Polyphagia) - Continues to improve. - Will continue to monitor. - Discussed ways to help with exercise. 2. Asthma (J45.909: Unspecified asthma, uncomplicated) - Stable. - No complaints 3. Morbid obesity (E66.01: Morbid (severe) obesity due to excess calories) - Diet and exercise discussed in detail. Ordered: buPROPion, 150 mg = 1 tab(s), Oral, q24hr, # 90 tab(s), Refills(s) 0, Pharmacy: [id number], 162.8, cm, 08/20/23 7:07:00 EDT, Height/Length Dosing, 109.7, kg, 08/20/23 7:07:00 EDT, Weight Dosing 4. BMI 40.0-44.9, adult (Z68.41: Body mass index [BMI] 40.0-44.9, adult) - BMI education uploaded Ordered: buPROPion, 150 mg = 1 tab(s), Oral, q24hr, # 90 tab(s), Refills(s) 0, Pharmacy: [facility] #[id number], 162.8, cm, 08/20/23 7:07:00 EDT, Height/Length Dosing, 109.7, kg, 08/20/23 7:07:00 EDT, Weight Dosing 5. Emotional sensitivity (R45.89: Other symptoms and signs involving emotional state) - Improving. - Continue Wellbutrin. Ordered: buPROPion, 150 mg = 1 tab(s), Oral, q24hr, # 90 tab(s), Refills(s) 0, Pharmacy: [facility]/pharmacy #[id number], 162.8, cm, 08/20/23 7:07:00 EDT, Height/Length Dosing, 109.7, kg, 08/20/23 7:07:00 EDT, Weight Dosing Follow-up No qualifying data available Patient Education BMI for Adults Problem List/Past Medical History Ongoing Asthma BMI 40.0-44.9, adult Cholelithiasis Colon cancer screening Diverticulosis of colon Emotional sensitivity Excessive dietary caloric intake Hair loss Influenza [...] lifetime) Tobacco Use:. Never Smokeless Tobacco Use:., 08/20/2023 Family History Hypertension: Father. Immunizations Vaccine Date Status Comments influenza virus vaccine, inactivated - Not Given Patient Refuses very sick in past with flu shot will not take them SARS-CoV-2 (COVID-19) mRNA BNT-162b2 vax 04/01/2021 Recorded SARS-CoV-2 (COVID-19) mRNA BNT-162b2 vax 03/11/2021 Recorded 2022-12-19: TPV50 influenza virus vaccine, inactivated 03/05/2018 Recorded Normal [facility] Comment on above: Result Comment: Elec tronically Signed By: Rodger TRIMBLE, Jesus Norman\.br\Date and Time Signed: 08/20/23 07:19 EDT Patient Educationon 04-16-20 24 Patient Education Nutrition BMI for Adults What [...] numbers. This can be done either in [place] ([place] or metric measurements. Note that charts and online BMI calculators are available to help you find your BMI quickly and easily without having to do these calculations yourself. To calculate your BMI in [place] ([place] measurements: 1. Measure your weight in [...] for Disease Control and Prevention: www.cdc.gov ? [place] [employer]: www.heart.org ? National Heart, Lung, and Blood [place]: www.nhlbi.nih.gov Summary ? Body mass index (BMI) is a number that is calculated from a person's weight and height. ? BMI may help estimate how much of a person's weight is composed of fat. BMI can help identify those who may be at higher risk for certain medical problems. ? BMI can be measured using [place] measurements or metric measurements. ? BMI charts are used to identify whether you are underweight, normal weight, overweight, or obese. This information is not intended to replace advice given to you by your health care provider. Make sure you discuss any questions you have with your health care provider. Document Revised: 01/13/2020 Document Reviewed: 11/20/2019 [employer] Patient Education ? 2022 [employer] [facility] Ambulatory Visit Summaryon 0 06-18-2023 Ambulatory Visit Summary LYNETTE PRADO :1960 [id number] Visit Date:06/18/2023 Ambulatory Visit Instructions Your Diagnosis Excessive dietary caloric intake Essential hypertension BMI 40.0-44.9, adult Your Care Team Attending Physician - Jesus Soares MD Primary Care Physician - Jesus Soares MD This Is Your Medications List buPROPion (Wellbutrin XL 150 mg/24 hours Tab-ER) Procedures Performed Cholecystectomy (12/19/2022), Bunionectomy, Cardiac catheter, Endometrial ablation, Hysteroscopy. Discharge Vitals Temperature (Temporal Artery) 36.6 ?C Heart Rate (Peripheral) 88 Respiratory Rate 16 Blood Pressure 132/80 Height 162.8 cm Height 64 in Weight 112.8 kg Weight 248.16 lb BMI 42.56 What to do next Scheduled Follow-Up Appointments Saturday 7:00 AM EDT With: Jesus Soares MD Where: [facility] [place] [facility] Family Medicine Office/Clini c Noteon 06-18-2023 Family Medicine Office/Clinic Note HPI Staff Lynette is a 63 year old female presenting for weight check Weight management Sleeping well:Yes, 6-8 hours Chest pain:No Tremors:No Headaches:No Heart fluttering:No Blurred Vision:No Weight last visit: 116.8kg/256.96lbs Weight this visit: 112.8kg/248lbs flu: refused questions/concerns: none History of Present Illness - Pt here for follow up on weight. - Doing really well. - Emotions are doing well. - Lost 8 pounds and she was on vacation. - She is very happy with her results. Review of Systems PHQ Score Initial Depression Screen Score: 0 SCORE Physical Exam Vitals & Measurements T: 36.6 ?C(Temporal Artery) HR: 88(Peripheral) RR: 16 BP: 132/80 SpO2: 99% HT: 64 in HT: 162.8 cm WT: 112.8 kg WT: 248.16 lb BMI: 42.56 General: alert, no acute distress ENMT: oral mucosa moist, Cardiovascular: regular rate and rhythm, normal peripheral perfusion Respiratory: Lungs CTA, respirations non labored Extremities: no deformity, no trauma Neurological: oriented x 4, LOC appropriate for age, CN II-XII intact, motor strength equal & normal bilaterally, speech normal Abdomen: Soft, Nontender, Non-distended, + BS Assessment/Plan 1. Excessive dietary caloric intake (R63.2: Polyphagia) - Continue diet and exercise - Encouraged by the results. - Follow up in 2 months 2. Essential hypertension (I10: Essential (primary) hypertension) - At goal and not on meds - Will resolve this issue 3. BMI 40.0-44.9, adult (Z68.41: Body mass index [BMI] 40.0-44.9, adult) - BMI education given. Ordered: buPROPion, 150 mg = 1 tab(s), Oral, q24hr, # 90 tab(s), Refills(s) 0, Pharmacy: [facility]/pharmacy #[id number], 162.8, cm, 06/18/23 7:10:00 EST, Height/Length Dosing, 112.8, kg, 06/18/23 7:10:00 EST, Weight Dosing Follow-up No qualifying data available Problem List/Past Medical History Ongoing Asthma BMI 40.0-44.9, adult Cholelithiasis Colon cancer screening Diverticulosis of colon Emotional sensitivity Excessive dietary caloric intake Hair loss Influenza [...] lifetime) Tobacco Use:. Never Smokeless Tobacco Use:., 06/18/2023 Family History Hypertension: Father. Immunizations Vaccine Date Status Comments influenza virus vaccine, inactivated - Not Given Patient Refuses very sick in past with flu shot will not take them SARS-CoV-2 (COVID-19) mRNA BNT-162b2 vax 04/01/2021 Recorded SARS-CoV-2 (COVID-19) mRNA BNT-162b2 vax 03/11/2021 Recorded 2022-12-19: TPV50 influenza virus vaccine, inactivated 03/05/2018 Recorded Normal [facility] Comment on above: Result Comment: Elec tronically Signed By: Rodger TRIMBLE, Jesus Mcfarland.br\Date and Time Signed: 06/18/23 07:22 EST CHEMISTRYOrdered By: SYSTEM SYSTEM on 04-01-2023 Albumin [...] 0.7 mg/dL Normal 0.5 - 1.3 mg/dL [facility] Remisol GFR/1.73 sq M.predicted among non-blacks MDRD (S/P/Bld) [Vol rate/Area] 99 mL/min/1.73 m2 Normal >=59mL/min/1. 73 m2 [facility] Comment on above: Interpretive Data: C hronic kidney disease could be indicated at eGFR's of less than 60 mL/min/1.73m2. Kidney failure is indicated at less than 15 mL/min/1.73m2. Globulin (S) [Mass/Vol] 3.9 g/dL Normal 1.4 - 4.0 gm/dL [facility] Remisol Glucose [Mass/Vol] 104 mg/dL Normal 55 - 199 mg/dL [facility] Remisol Comment on above: Interpretive Data: I f this glucose result represents a fasting glucose, interpretation should refer to the following reference range: 55-99 mg/dL Potassium [Moles/Vol] 4.2 mmol/L Normal 3.5 - 5.3 mmol/L [facility] Remisol Protein [Mass/Vol] 7.6 g/dL Normal 6.0 - 7.8 gm/dL [facility] Sodium [Moles/Vol] 141 mmol/L Normal 135 - 145 mmol/L [facility] Remisol Triglyceride [Mass/Vol] 96 mg/dL Normal <=149mg/dL [facility] TSH Qn 3.50 m[IU]/L Normal 0.34 - 5.60 mcIU/mL [facility] Urea nitrogen [Mass/Vol] 18 mg/dL Normal 5 - 21 mg/dL [facility] Remisol Urea nitrogen/Creatinine [Mass ratio] 26 mg/mg High 10 - 20 [facility] Remisol HEMATOLOGYOrdered By: SYSTEM SYSTEM on 04-01-2023 Basophils/100 [...] 52.7 % Normal 36.0 - 75.0 % [facility] HemeAutoSS Neutrophils/Leukocyte s Auto (Bld) [Pure # fraction] 2.7 E9/L Normal 2.0 - 7.5 E9/L [facility] HemeAutoSS HEMATOLOGYOrdered By: Neptali Olivares on 04-01-2023 Erythrocyte distribution width (RBC) [Ratio] 14.3 % High 10.9 - 14.2 % [facility] HemeAutoSS Hematocrit (Bld) [Volume fraction] 41.1 % Normal 34.0 - 46.0 % [facility] HemeAutoSS Hemoglobin (Bld) [Mass/Vol] 13.7 g/dL Normal 12.0 - 16.0 gm/dL [facility] HemeAutoSS MCH (RBC) [Entitic mass] 30.2 pg Normal 27.0 - 34.0 pg [facility] HemeAutoSS MCHC (RBC) [Mass/Vol] 33.2 g/dL Normal 31.4 - 36.0 gm/dL [facility] HemeAutoSS MCV (RBC) [Entitic vol] 91.0 fL Normal 80.0 - 100.0 fL [facility] HemeAutoSS Platelet mean volume (Bld) [Entitic vol] 9.4 fL Normal 6.4 - 10.8 fL [facility] HemeAutoSS Platelets (Bld) [#/Vol] 221.0 E9/L Normal 150.0 - 500.0 E9/L [facility] HemeAutoSS RBC (Bld) [#/Vol] 4.5 E12/L Normal 4.3 - 5.9 E12/L [facility] HemeAutoSS WBC corrected for nucl RBC Auto (Bld) [#/Vol] 5.1 E9/L Normal 4.0 - 11.0 E9/L [facility] HemeAutoSS CARDIAC NESTOR ADMITon 023 CK [Catalytic activity/Vol] 135 U/L Normal 26-192 [facility] Comment on above: Performed By: #### L IPA, CMADM, CMP #### [facility] [address] [address] [address] Spring Vitale CK.MB [Mass/Vol] 2.61 ng/mL Normal <=3.60 [facility] Comment on above: Performed By: #### L IPA, CMADM, CMP #### [facility] [address] [address] [address] Spring Vitale HSTROP 4.3 pg/mL Normal 4.0-51.3 [facility] Comment on above: Result Comment: CUT- OFF POINTS HAVE BEEN ESTABLISHED BASED ON THE FOURTH UNIVERSAL DEFINITIONS OF MYOCARDIAL INFARCTION. THE UPPER REFERENCE LIMIT (URL) OF TROPONIN, DEFINED THE 99TH PERCENTILE OF cTnI DISTRIBUTION IN A REFERENCE POPULATION, HAS BEEN CONFIRMED THE DECISION THRESHOLD FOR AL DIAGNOSIS. Performed By: #### L IPA, CMADM, CMP #### [facility] [address] [address] [address] Spring Vitale STACY 65 ng/mL Normal 9-82 [facility] Comment on above: Performed By: #### L IPA, CMADM, CMP #### [facility] [address] [address] [address] Spring Vitale CBC AUTO DIFFon 07-12-2022 BASO # 0.0 103/ul Normal 0.0-0.1 [facility] Comment on above: Performed By: #### C BC #### [facility] [address] [address] [address] Spring Vitale Basophils/100 WBC (Bld) 0.4 % Normal 0.2-2.0 [facility] Comment on above: Performed By: #### C BC #### [facility] [address] [address] [address] Spring Vitale EO # 0.1 103/ul Normal 0.0-0.7 [facility] Comment on above: Performed By: #### C BC #### [facility] [address] [address] [address] Spring Vitale Eosinophils/100 WBC (Bld) 0.5 % Critically low 0.9-7.0 [facility] Comment on above: Performed By: #### C BC #### [facility] [address] [place] [address] Dr. Spring Vitale Erythrocyte distribution width (RBC) [Ratio] 13.6 % Normal 11.0-15.0 [facility] Comment on above: Performed By: #### C BC #### [facility] [address] [place] [address] Dr. Spring Vitale Hematocrit (Bld) [Volume fraction] 40.1 % Normal 36.0-48.0 [facility] Comment on above: Performed By: #### C BC #### [facility] [address] [place] [address] Dr. Spring Vitale Hemoglobin (Bld) [Mass/Vol] 13.1 g/dL Normal 12.0-16.0 [facility] Comment on above: Performed By: #### C BC #### [facility] [address] [place] [address] Dr. Spring Vitale IG # 0.03 10e3/ul Normal 0.00-0.03 [facility] Comment on above: Performed By: #### C BC #### [facility] [address] [place] [address] Dr. Spring Vitale IG % 0.3 % Normal 0.0-0.5 [facility] Comment on above: Performed By: #### C BC #### [facility] [address] [place] [address] Dr. Spring Vitale LYMPH # 1.1 103/ul Critically low 1.2-3.8 [facility] Comment on above: Performed By: #### C BC #### [facility] [address] [place] [address] Dr. Spring Vitale Lymphocytes/100 WBC (Bld) 10.6 % Critically low 20.5-60.0 [facility] Comment on above: Performed By: #### C BC #### [facility] [address] [place] [address] Dr. Spring Vitale MANUAL DIFF REQ NO Normal [facility] Comment on above: Performed By: #### C BC #### [facility] [address] [address] [address] Spring Vitale MCH (RBC) [Entitic mass] 29.6 pg Normal 26.7-34.0 [facility] Comment on above: Performed By: #### C BC #### [facility] [address] [address] [address] Spring Vitale MCHC (RBC) [Mass/Vol] 32.7 g/dL Normal 29.9-35.2 [facility] Comment on above: Performed By: #### C BC #### [facility] [address] [address] [address] Spring Vitale MCV (RBC) [Entitic vol] 90.7 fL Normal 81.0-99.0 [facility] Comment on above: Performed By: #### C BC #### [facility] [address] [place] [address] Dr. Spring Vitale MONO # 0.6 103/ul Normal 0.3-0.8 [facility] Comment on above: Performed By: #### C BC #### [facility] [address] [address] [address] Spring Vitale Monocytes/100 WBC (Bld) 5.5 % Normal 1.7-12.0 [facility] Comment on above: Performed By: #### C BC #### [facility] [address] [address] [address] Spring Vitale NEUT # 8.3 103/ul Critically high 1.4-6.5 [facility] Comment on above: Performed By: #### C BC #### [facility] [address] [address] [address] Spring Vitale Neutrophils/100 WBC (Bld) 82.7 % Critically high 43.0-75.0 [facility] Comment on above: Performed By: #### C BC #### [facility] [address] [place] [address] Dr. Spring Vitale Platelet mean volume (Bld) [Entitic vol] 10.2 fL Normal 9.5-13.5 [facility] Comment on above: Performed By: #### C BC #### [facility] [address] [place], [place] [address] Dr. Spring Vitale PLT 255 103/ul Normal 150-450 [facility] Comment on above: Performed By: #### C BC #### [facility] [address] [place], [place] [address] Dr. Spring Vitale RBC 4.42 106/ul Normal 4.20-5.40 [facility] Comment on above: Performed By: #### C BC #### [facility] [address] [place], [place] [address] Dr. Spring Vitale WBC 10.0 103/ul Normal 4.0-11.0 [facility] Comment on above: Performed By: #### C BC #### [facility] [address] [place], [place] [address] Dr. Spring Vitale CTA CHEST WO W [...] LORETTA ESPINOSA Date: 2022-07-12 01:28 Normal [facility] D-DIMERon 07-12-2022 D-DIMER 1.09 mg/L FEU Critically high <=0.59 [facility] Comment on above: Performed By: #### D DIM #### [facility] [address] [place] [address] Dr. Spring Vitale D-DIMER COMMENTS SEE BELOW Normal [facility] Comment on above: Result Comment: Incr [...] hospitalization. Performed By: #### D DIM #### [facility] [address] [address] [address] Spring Vitale LIPASEon 07-12-2022 Lipase [Catalytic activity/Vol] 90.0 U/L Normal 73.0-393.0 [facility] Comment on above: Performed By: #### L IPA, CMADM, CMP #### [facility] [address] [place] [address] Dr. Spring Vitale PROF 14(COMP METB)on 023 Albumin [Mass/Vol] 3.6 g/dL Normal 3.4-5.0 [facility] Comment on above: Performed By: #### L IPA, CMADM, CMP #### [facility] [address] [place] [address] Dr. Spring Vitale Albumin/Globulin [Mass ratio] 0.9 {ratio} Normal [facility] Comment on above: Performed By: #### L IPA, CMADM, CMP #### [facility] [address] [place] [address] Dr. Spring Vitale ALP [Catalytic activity/Vol] 130 U/L Critically high 46-116 [facility] Comment on above: Performed By: #### L IPA, CMADM, CMP #### [facility] [address] [address] [address] Spring Vitale ALT [Catalytic activity/Vol] 133 U/L Critically high 14-59 [facility] Comment on above: Performed By: #### L IPA, CMADM, CMP #### [facility] [address] [address] [address] Spring Vitale Anion gap [Moles/Vol] 10.7 mmol/L Normal [facility] Comment on above: Performed By: #### L IPA, CMADM, CMP #### [facility] [address] [address] [address] Spring Vitale AST [Catalytic activity/Vol] 179 U/L Critically high 15-37 [facility] Comment on above: Performed By: #### L IPA, CMADM, CMP #### [facility] [address] [address] [address] Spring Vitale Bilirubin [Mass/Vol] 0.6 mg/dL Normal 0.2-1.0 [facility] Comment on above: Performed By: #### L IPA, CMADM, CMP #### [facility] [address] [address] [address] Spring Vitale Calcium [Mass/Vol] 9.2 mg/dL Normal 8.5-10.1 [facility] Comment on above: Performed By: #### L IPA, CMADM, CMP #### [facility] [address] [address] [address] Spring Vitale Chloride [Moles/Vol] 102 mmol/L Normal 98-107 [facility] Comment on above: Performed By: #### L IPA, CMADM, CMP #### [facility] [address] [address] [address] Spring Vitale CO2 [Moles/Vol] 28.5 mmol/L Normal 21.0-32.0 [facility] Comment on above: Performed By: #### L IPA, CMADM, CMP #### [facility] [address] [address] [address] Spring Vitale Creatinine [Mass/Vol] 0.88 mg/dL Normal 0.55-1.02 [facility] Comment on above: Performed By: #### L IPA, CMADM, CMP #### [facility] [address] [address] [address] Spring Vitale EGFR-AF KENYAN >60 Normal >=60 [facility] Comment on above: Performed By: #### L IPA, CMADM, CMP #### [facility] [address] [address] [address] Spring Vitale EGFR-NON AF KENYAN >60 Normal >=60 [facility] Comment on above: Performed By: #### L IPA, CMADM, CMP #### [facility] [address] [address] [address] Spring Vitale Globulin (S) [Mass/Vol] 4.0 g/dL Normal [facility] Comment on above: Performed By: #### L IPA, CMADM, CMP #### [facility] [address] [place] [address] Dr. Spring Vitale Glucose [Mass/Vol] 159 mg/dL Critically high 74-106 [facility] Comment on above: Performed By: #### L IPA, CMADM, CMP #### [facility] [address] [place] [address] Dr. Spring Vitale Potassium [Moles/Vol] 4.2 mmol/L Normal 3.5-5.1 [facility] Comment on above: Performed By: #### L IPA, CMADM, CMP #### [facility] [address] [address] [address] Spring Vitale Protein [Mass/Vol] 7.6 g/dL Normal 6.4-8.2 [facility] Comment on above: Performed By: #### L IPA, CMADM, CMP #### [facility] [address] [place] [address] Dr. Spring Vitale Sodium [Moles/Vol] 137 mmol/L Normal 136-145 [facility] Comment on above: Performed By: #### L IPA, CMADM, CMP #### [facility] [address] [address] [address] Spring Vitale Urea nitrogen [Mass/Vol] 23.0 mg/dL Critically high 7.0-18.0 [facility] Comment on above: Performed By: #### L IPA, CMADM, CMP #### [facility] [address] [id number] Spring Vitale Urea nitrogen/Creatinine [Mass ratio] 26.1 mg/mg Normal [facility] Comment on above: Performed By: #### L IPA, CMADM, CMP #### [facility] [address] [address] [address] Spring Vitale TROPONIN, HIGH SENSITIVITYon 07-12-2022 HSTROP 4.0 pg/mL Normal 4.0-51.3 [facility] Comment on above: Result Comment: CUT- OFF POINTS HAVE BEEN ESTABLISHED BASED ON THE FOURTH UNIVERSAL DEFINITIONS OF MYOCARDIAL INFARCTION. THE UPPER REFERENCE LIMIT (URL) OF TROPONIN, DEFINED THE 99TH PERCENTILE OF cTnI DISTRIBUTION IN A REFERENCE POPULATION, HAS BEEN CONFIRMED THE DECISION THRESHOLD FOR AL DIAGNOSIS. Performed By: #### H STROPN #### [facility] [address] [place] [address] Dr. Spring Vitale XR CHEST 1 Von 07-12-2022 XR CHEST 1 V EXAM: XR CHEST 1 V HISTORY: CHEST PAIN, UNSPECIFIED COMPARISON: 07/13/2021 TECHNIQUE: Chest single view. FINDINGS: Lines/tubes/devices : EKG leads overlie the chest. No indwelling [...] LORETTA ESPINOSA Date: 2022-07-11 23:42 Normal [facility] Vital Signs Date Time Vital Sign Value Performing Clinician Faci lity 04-23-2023 14:04-0500 Blood Pressure Location Loretta NILL [facility] [place] 04-23-2023 14:04-0500 Diastolic blood pressure 90 mm[Hg] Loretta NILL [facility] [place] 04-23-2023 14:04-0500 Heart rate 76 /min Loretta NILL [facility] [place] 04-23-2023 14:04-0500 Respiratory rate 16 /min Loretta NILL [facility] [place] 04-23-2023 14:04-0500 Systolic blood pressure 128 mm[Hg] Loretta NILL [facility] [place] Encounters Encounter Date Encounter Type Care Provider Facility Start: 06-18-2024 ambulatory Jesus Soares Facility : [facility] [place] Start: 05-26-2024 ambulatory Jesus Soares Facility : [facility] [place] Start: 05-12-2024 End: 05-12-2024 ambulatory Jesus Soares Facility: [facility] [place] Start: 02-11-2024 End: 02-11-2024 ambulatory Jesus Soares Facility: [facility] [place] Start: 11-19-2023 End: 11-19-2023 ambulatory Jesus Soares Facility: [facility] [place] Start: 08-20-2023 End: 08-20-2023 ambulatory Jesus Soares Facility: [facility] [place] Start: 06-18-2023 End: 06-18-2023 ambulatory Jesus Soares Facility: [facility] [place] Start: 04-23-2023 End: 04-23-2023 Patient encounter procedure Loretta Michelle NILL [facility] [place] Start: 04-01-2023 End: 04-01-2023 Lab Drop off Jesus Soares [facility] Start: 12-25-2022 End: 12-25-2022 Patient encounter procedure Loretta R NILL [facility] [place] Start: 07-12-2022 End: 07-12-2022 ambulatory BLAIRE HA . Facility: Procedures Date Procedure Procedure Detail Performing Clinician Start: 12-19-2022 Cholecystectomy Loretta BAUTISTAL Cardiac catheter (ph ysical object) Loretta BAUTISTAL Comment on above: 03/08 normal Endometrial ablation Loretta NILL Excision of bunion Loretta N ILL Hysteroscopy Loretta NILL Comment on above: D&C also Immunizations Immunization Date Immunization Notes Care Provider Fa cility 04-01-2021 SARS-CoV-2 (COVID-19 ) mRNA BNT-162b2 vax Loretta BAUTISTAL [facility] [place] 03-11-2021 SARS-CoV-2 (COVID-19 ) mRNA BNT-162b2 vax Loretta ACE [facility] [place] Comment on above: Result Comment: 2022: TPV50 03-05-2018 influenza virus vaccine, unspecified formulation Jessu Soares [facility] NEGATED: Highlighted row has not occurred!04-01-2023 influenza virus vaccine, unspecified formulation Jesus Rodger [facility] [place] Comment on above: Result Comment: very sick in past with flu shot will not take them Payers Date Payer Category Payer Unknown [id number] 1960 Unknown [id number] 2.16.84 [id number] 1960 Unknown [id number] 2.16.8 [id number] 1960 Unknown [id number] 2.16.8 [id number] 1960 Unknown [id number] 2.16.8 [id number] 1960 Unknown [id number] 2.16.8 [id number] 1960 Unknown [id number] 2.16.8 [id number] 1960 Unknown [id number] 2.16.8 [id number] 1960 Unknown [id number] 2.16.8 [id number] 1959 Unknown [id number] Social History Date Type Detail Facility Start: 12-25-2022 End: 04-23-2023 Tobacco smoking status Never smoked tobacco (finding) [facility] [place] Tobacco smoking status Never [facility] Sex Assigned At Female [facility] Functional Status Date Assessment Result Facility 04-23-2023 Functional Status N/A [facility] 12-25-2022 Functional Status N/A [facility] Clinical Note 02-11-2024 Note Date & Type Note Facility 02-11-2024 Note Patient Education Nutrition BMI for Adults Body mass index (BMI) is a number found using a person's weight and height. BMI can help tell how much of a person's weight is made up of fat. BMI does not measure body fat directly. It is used instead of tests that directly measure body fat, which can be difficult and expensive. What are BMI measurements used for? BMI is useful to: ? Find out if your weight puts you at higher risk for medical problems. ? Help recommend changes, such as in diet and exercise. This can help you reach a healthy weight. BMI screening can be done again to see if these changes are working. How is BMI calculated? Your height and weight are measured. The BMI is found from those numbers. This can be done with U.S. or metric measurements. Note that charts and online BMI calculators are available to help you find your BMI quickly and easily without doing these calculations. To calculate your BMI in U.[place]. measurements: 1. Measure your weight in pounds (lb). 2. Multiply the number of pounds by 703. ? So, for an adult who weighs 150 lb, multiply that number by 703: 150 x 703, which equals 105,450. 3. Measure your height in inches. Then multiply that number by itself to get a measurement called inches squared. ? So, for an adult who is 70 inches tall, the inches squared measurement is 70 inches x 70 inches, which equals 4,900 inches squared. 4. Divide the total from step 2 (number of lb x 703) by the total from step 3 (inches squared): 105,450 ? 4,900 = 21.5. This is your BMI. To calculate your BMI in metric measurements: 1. Measure your weight in kilograms (kg). ? For this example, the weight is 70 kg. 2. Measure your height in meters (m). Then multiply that number by itself to get a measurement called meters squared. ? So, for an adult who is 1.75 m tall, the meters squared measurement is 1.75 m x 1.75 m, which equals 3.1 meters squared. 3. Divide the number of kilograms (your weight) by the meters squared number. In this example: 70 ? 3.1 = 22.6. This is your BMI. What do the results mean? BMI charts are used to see if you are underweight, normal weight, overweight, or obese. The following guidelines will be used: ? Underweight: BMI less than 18.5. ? Normal weight: BMI between 18.5 and 24.9. ? Overweight: BMI between 25 and 29.9. ? Obese: BMI of 30 or above. BMI is a tool and cannot diagnose a condition. Talk with your health care provider about what your BMI means for you. Keep these notes in mind: ? Weight includes fat and muscle. Someone with a muscular build, such as an athlete, may have a BMI that is higher than 24.9. In cases like these, BMI is not a correct measure of body fat. ? If you have a BMI of 25 or higher, your provider may need to do more testing to find out if excess body fat is the cause. ? BMI is measured the same way for males and females. Females usually have more body fat than males of the same height and weight. Where to find more information For more information about BMI, including tools to quickly find your BMI, go to: ? Centers for Disease Control and Prevention: cdc.gov ? [place] Heart Association: heart.org ? National Heart, Lung, and Blood [place]: nhlbi.nih.gov This information is not intended to replace advice given to you by your health care provider. Make sure you discuss any questions you have with your health care provider. Document Revised: 01/10/2023 Document Reviewed: 01/03/2023 [employer] Interactive Patient Education ? 2023 [employer] [facility] Clinical Note 11-19-2023 Note Date & Type Note Facility 11-19-2023 Note Patient Education Nutrition BMI for Adults What [...] numbers. This can be done either in [place] ([place] or metric measurements. Note that charts and online BMI calculators are available to help you find your BMI quickly and easily without having to do these calculations yourself. To calculate your BMI in [place] ([place] measurements: 1. Measure your weight in [...] for Disease Control and Prevention: www.cdc.gov ? [place] Heart Association: www.heart.org ? National Heart, Lung, and Blood [place]: www.nhlbi.nih.gov Summary ? Body mass index (BMI) is a number that is calculated from a person's weight and height. ? BMI may help estimate how much of a person's weight is composed of fat. BMI can help identify those who may be at higher risk for certain medical problems. ? BMI can be measured using [place] measurements or metric measurements. ? BMI charts are used to identify whether you are underweight, normal weight, overweight, or obese. This information is not intended to replace advice given to you by your health care provider. Make sure you discuss any questions you have with your health care provider. Document Revised: 01/13/2020 Document Reviewed: 11/20/2019 [employer] Interactive Patient Education ? 2022 [employer] [facility] Evaluation + Plan note Note Date & Type Note Facility Evaluation + Plan note Future Appointments Appointment Date:12/31/2022 01:40:00 PM Scheduled Provider:Jesus Soares MD [facility] Appointment Type: New Patient - Adult General Surgery [place] Evaluation + Plan note Radiology Note Date & Type Note Facility Evaluation + Plan note Future Appointments Appointment Date:05/07/2023 07:00:00 AM Scheduled Provider:Jesus Soares MD [facility] Appointment Type: Open Future Scheduled TestsMA Mamm Screen w/CAD if perf and 3D Librado 04/01/23 [facility] Evaluation + Plan note Radiology Note Date & Type Note Facility Evaluation + Plan note Future Appointments Appointment Date:05/07/2023 07:00:00 AM Scheduled Provider:Jesus Soares MD Location:[facility] Appointment Type: Open Future Scheduled TestsMA Mamm Screen w/CAD if perf and 3D Librado 04/01/23 [facility] course Narrative Note Date & Type Note Facility Hospital course Narrative No data available for this section [facility] Discharge instructions Note Date & Type Note Facility Hospital Discharge instructions No data available for this section [facility] note Note Date & Type Note [...] pital DATE CREATED AUTHOR AUTHOR'S ORGANIZ ATION 05/16/2024 [facility] team informatio n (unrecognized section and content) Personnel Name: Jesus Soares MD Address: Address: [facility] [address] Personnel Name: Jesus Soares MD Address: Address: [address] [place], [place] [address] [address] Personnel Name: Jesus Soares MD Address: Address: [facility] [address] FOR RECORDS PERTAINING TO PATIENTS WHO [...] BE BASED ON THE PRIMARY CLINICAL RECORDS. [facility] [employer] [facility]. provides no warranty or guarantee of the accuracy or completeness of information in this document.
--- NOTE | 2024-05-26 17:39 | ECG_ITS ---
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
[2024-05-26 17:49] LABS: Glucometer 82 mg/dL (74-106)
--- NOTE | 2024-05-26 18:09 | ED.GENADUL1 ---
HPI HPI - General Adult General Chief complaint: Nausea/Vomiting/Diarrhea Stated complaint: Sent by Doctor Rodger to [facility] medication Time Seen by Provider: 05/26/24 17:28 Source: patient Mode of arrival: walk-in Limitations: no limitations History of Present Illness HPI narrative: Patient is coming to us after she had an injected 2 PM today of her semaglutide that she was supposed to be taking a 1 week injection she took a whole 1 month by mistake because she is trying another company of the same medication that is cheaper and comes in vials The patient mentioned that she gave herself 1 ml she showed me the needle that she used Since then the patient had nausea and vomiting twice Related Data Home Medications ?Medication ?Instructions ?Recorded ?Confirmed bupropion HCl 150 mg 24 hr tablet, 150 mg PO DAILY 04/30/23 05/26/24 extended release (Wellbutrin XL) semaglutide (weight loss) subcut 05/26/24 Allergies Allergy/AdvReac Type Severity Reaction Status Date / Time No Known Drug Allergies Allergy Verified 12/17/22 07:08 Opioid HPI Opioid Management Most Recent Opioid Data: Last Pain Scale 0 12/19/22 07:24 12/19/22 Review of Systems ROS Status of ROS 10 or more systems reviewed and unremarkable except as noted in history and below PFSH PFS Medical History (Updated 05/26/24 @ 18:21 by Sena Saenz MD) Migraines ?G43.909 - Migraine, unspecified, not intractable, without status migrainosus (ICD-10) Asthma ?J45.909 - Unspecified asthma, uncomplicated (ICD-10) Abnormal urinalysis ?R82.90 - Unspecified abnormal findings in urine (ICD-10) Cholelithiasis ?K80.20 - Calculus of gallbladder without cholecystitis without obstruction (ICD-10) Surgical History (Updated 04/30/23 @ 11:56 by Mayelin Diaz) History of hysteroscopy ?Z98.890 - Other specified postprocedural states (ICD-10) History of endometrial ablation ?Z98.890 - Other specified postprocedural states (ICD-10) History of cardiac cath ?Z98.890 - Other specified postprocedural states (ICD-10) History of bunionectomy ?Z98.890 - Other specified postprocedural states (ICD-10) History of cholecystectomy ?Z90.49 - Acquired absence of other specified parts of digestive tract (ICD-10) Family History (Updated 12/17/22 @ 10:17 by Lakeisha Garza LPN) Father Family history of hypertension Other Family history of COPD (chronic obstructive pulmonary disease) Social History (Updated 04/30/23 @ 11:57 by Mayelin Diaz) Within the past year, how often did you have a drink containing alcohol: 2-3 times a week Within the past year, how many standard drinks containing alcohol did you have on a typical day: 1 or 2 Within the past year, how often did you have six or more drinks on one occasion: never Total score: 0 Score interpretation: Questions 2 and 3 are 0. It can be assumed that the patient's drinking is below the recommended limits. However, please confirm the accuracy of the patient's alcohol intake over the last few months. Smoking status: Never smoker Second hand tobacco smoke exposure: No Non-prescribed substance use: denies use Previous occupational history: retired Known occupational exposures/hazards: No Highest level of school completed/degree received: high school graduate Do you want help with school or training: No Are you now , , , , never or living with a partner: In a typical week, how many times do you talk on the telephone with family, friends, or neighbors: 3 or more times per week How often do you get together with friends or relatives: 3 or more times per week How often do you attend quaker or amish services: 1-3 times per year Do you belong to any clubs or organizations such as quaker groups unions, fraternal or athletic groups, or school groups: no Total score: 2 Score interpretation: A score of greater than or equal to 2 indicates the lowest level of social isolation. Little interest or pleasure in doing things: not at all Feeling down, depressed, or hopeless: not at all Feel stressed/tense/nervous/anxious/difficulty sleeping: not at all Due to disability, difficulty making decisions: No Do you think of yourself as: straight/heterosexual Gender Identity: female Exam Narrative Exam Narrative: Nurses notes and vital signs reviewed and patient is not hypoxic. General: Well-appearing and in no apparent distress. Skin: Warm, dry, no pallor noted. No rash. Head: Normocephalic, atraumatic. Neck: Supple, non-tender. Eye: Pupils are equal, round and EOMI. No scleral icterus. Ears, Nose, Mouth, and Throat: TM are clear, no nasal mucosal hypertrophy. Oral mucosa is moist, no posterior oropharynx erythema, uvula is mid-line Cardiovascular: Regular Rate and Rhythm without murmur, gallop or rub. Respiratory: No accessory muscle use or respiratory distress. Lungs are clear to auscultation, no wheezing, rales or rhonchi Chest Wall: no tenderness Back: No midline thoracic or lumbar vertebral tenderness. No CVA tenderness Musculoskeletal: normal ROM, no calf or popliteal tenderness, no lower extremity edema/swelling GI: Abdomen is soft, non-distended. Normal bowel sounds. No masses appreciated. No tenderness to palpation. No rebound, guarding, or rigidity noted. Neurological: A&O x4. No cranial nerve dysfunction observed. No truncal ataxia. Moves all extremities. Sensation intact. Psychiatric: Cooperative and interactive. Normal mood and affect. Constitutional Vital Signs, click to edit/add: Last Vital Signs Temp 98.1 F 05/26/24 17:31 Pulse 79 05/26/24 17:31 Resp 18 05/26/24 17:31 BP 130/92 H 05/26/24 17:31 Pulse Ox 98 05/26/24 17:31 O2 Del Method Room Air 05/26/24 17:31 Course Vital Signs Vital signs: Vital Signs Temperature 98.1 F 05/26/24 17:31 Pulse Rate 79 05/26/24 17:31 Respiratory Rate 18 05/26/24 17:31 Blood Pressure 130/92 H 05/26/24 17:31 Pulse Oximetry 98 05/26/24 17:31 Oxygen Delivery Method Room Air 05/26/24 17:31 Temperature 98.1 F 05/26/24 17:31 Pulse Rate 79 05/26/24 17:31 Respiratory Rate 18 05/26/24 17:31 Blood Pressure 130/92 H 05/26/24 17:31 Pulse Oximetry 98 05/26/24 17:31 Oxygen Delivery Method Room Air 05/26/24 17:31 Medical Decision Making MDM Narrative Medical decision making narrative: I calculated the dose the patient took and she mostly took 10 mg of the semaglutide The patient case was discussed with poison control and they recommended a total of 8 to 12 hours of waiting and monitoring with a blood sugar after the injection and the patient had injection earlier at 8 AM She will need further 2 hours of monitoring Right now the patient workup is pending including a CBC chemistry and lipase The patient will be monitored until at 8:00 and during the time the patient will get her nausea controlled and awaiting the results of the blood workup with another [id number] blood sugar before getting discharged patient care will be transferred to Lab Data Labs: Lab Results 05/26/24 Range/Units 17:48 POC Glucose 82 (74-106) mg/dL Discharge Plan Discharge Patient Disposition: Still a Patient
[2024-05-26] MEDS: 0.9 % SODIUM CHLORIDE 1,000 ML 1000 ML IV (18:19)
[2024-05-26 18:23] VITALS: PULSE 75
[2024-05-26 18:24] VITALS: O2SAT 99
[2024-05-26 18:26] LABS: Basophils Percent Auto 0.7 % (0.2-2.0); Eosinophils Absolute Auto 0.1 10^3/uL (0.0-0.7); Eosinophils Percent Auto 1.4 % (0.9-7.0); Hematocrit 41.6 % (36.0-48.0); Hemoglobin 13.6 g/dL (12.0-16.0); Immature Granulocytes Abs Auto 0.01 10^3/uL (0.00-0.03); Immature Granulocytes Pct Auto 0.2 % (0.0-0.5); Lymphocytes Absolute Auto 1.5 10^3/uL (1.2-3.8); Lymphocytes Percent Auto 24.9 % (20.5-60.0); Mean Corpuscular HGB Conc 32.7 g/dL (29.9-35.2); Mean Corpuscular Hemoglobin 30.6 pg (26.7-34.0); Mean Corpuscular Volume 93.5 fL (81.0-99.0); Mean Platelet Volume 10.4 fL (9.5-13.5); Monocytes Absolute Auto 0.4 10^3/uL (0.3-0.8); Monocytes Percent Auto 7.1 % (1.7-12.0); Neutrophils Absolute Auto 3.9 10^3/uL (1.4-6.5); Neutrophils Percent Auto 65.7 % (43.0-75.0); Platelet Count 246 10^3/uL (150-450); Red Blood Count 4.45 10^6/uL (4.20-5.40); Red Cell Distribution Width 13.1 % (11.0-15.0); White Blood Count 5.9 10^3/uL (4.0-11.0)
[2024-05-26 18:47] LABS: Alanine Aminotransferase 29 U/L (14-59); Albumin Globulin Ratio 0.9; Albumin Level 3.5 g/dL (3.4-5.0); Alkaline Phosphatase 85 U/L (46-116); Anion Gap 11.8; Aspartate Amino Transferase 19 U/L (15-37); Bilirubin Total 0.4 mg/dL (0.2-1.0); Calcium 9.3 mg/dL (8.5-10.1); Carbon Dioxide 29.7 mmol/L (21.0-32.0); Chloride 103 mmol/L (98-107); Estimated GFR (African America >60 (>=60 mL/min/1.73m^2); Estimated GFR (Non-African Ame >60 (>=60 mL/min/1.73m^2); Glucose 91 mg/dL (74-106); Potassium 4.5 mmol/L (3.5-5.1); Salicylate <2.8 mg/dL (<=19.9); Sodium 140 mmol/L (136-145); Total Protein 7.5 g/dL (6.4-8.2); Troponin I High Sensitivity 6.7 pg/mL (4.0-51.3)
[2024-05-26 18:49] LABS: Acetaminophen <2.0 ug/mL (10.0-30.0); Ethanol <3 mg/dL
[2024-05-26 19:35] LABS: Glucometer 79 mg/dL (74-106)
== END 2024-05-26 20:34 | disposition home or self-care (01) ==
PROVIDERS: Emergency Medicine; Emergency Provider Emergency Medicine; PCP Family Medicine
DX: T50.991A Poisoning by other drugs, medicaments and biological substances, accidental (unintentional), initial encounter (principal); R11.2 Nausea with vomiting, unspecified; Z90.49 Acquired absence of other specified parts of digestive tract
CPT/HCPCS: 36415; 80053; 80179; 80307; 80320; 80329; 83690; 84484; 85025; 93005; 96360; 96361; 99285